=== PATIENT | male | born 1945 | race Caucasian/White ===

== ENCOUNTER → 2016-10-02 | Outpatient (CLI) | payer MEDICARE ==
[2016-10-02 10:45] LABS: ALT 43 U/L (21-72); AST 30 U/L (17-59); Cholesterol 132 mg/dL (<200); HDL Cholesterol 52 mg/dL (40-60); Triglycerides 87 mg/dL (<150)
== END | disposition home or self-care (01) ==
LOC: LABWHC1 10:02
PROVIDERS: ATTEND Internal Medicine Cardiovascular Disease
DX: E78.5 Hyperlipidemia, unspecified (principal)
CPT/HCPCS: 36415; 80061; 84450; 84460

== ENCOUNTER 2017-05-02 07:23 | Day surgery (SDC) | payer MEDICARE ==
[2017-04-30 14:51] VITALS: BMI 23.7
[~2017-05-02 07:23] MED LIST: LACTATED RINGERS 1,000 ML IV SCH
--- NOTE | 2017-05-02 07:51 | P.GSHP ---
History of Present Illness H&P Date: 05/02/17 CHIEF COMPLAINT: Colon screen HISTORY OF PRESENT ILLNESS: The patient is a 71-year-old male who presents for colon screen. Lower endoscopy was offered for further evaluation and management. PAST MEDICAL HISTORY: Please see list. PAST SURGICAL HISTORY: Please see list. MEDICATIONS: Please see list. ALLERGIES: Please see list. SOCIAL HISTORY: No illicit drug use FAMILY HISTORY: No reports of Crohn disease or ulcerative colitis. REVIEW OF ORGAN SYSTEMS: CONSTITUTIONAL: No reports of fevers or chills. PHYSICAL EXAM: VITAL SIGNS: Stable GENERAL: Well-developed pleasant in no acute distress. HEENT: No scleral icterus. Extraocular movements grossly intact. Moist buccal mucosa. NECK: Supple without lymphadenopathy. CHEST: Unlabored respirations. Equal bilateral excursions. CARDIOVASCULAR: Regular rate and rhythm. Distal 2+ pulses. ABDOMEN: Soft, nontender, nondistended. MUSCULOSKELETAL: No clubbing, cyanosis, or edema. ASSESSMENT: 1. Colon screen. PLAN: 1. Recommend proceeding with a lower endoscopy Past Medical History Past Medical History: Hyperlipidemia, Osteoarthritis (OA) Additional Past Medical History / Comment(s): Gliac positive history. History of Any Multi-Drug Resistant Organisms: None Reported Past Surgical History: No Surgical Hx Reported Additional Past Surgical History / Comment(s): COLONOSCOPY Past Anesthesia/Blood Transfusion Reactions: No Reported Reaction Additional Past Anesthesia/Blood Transfusion Reaction / Comment(s): No prior hx of anesthesia. Smoking Status: Former smoker - Past Family History Brother(s) Family Medical History: Cancer Additional Family Medical History / Comment(s): Colon CA. Medications and Allergies Home Medications Medication Instructions Recorded Confirmed Type Aspirin [Adult Low Dose Aspirin EC] 81 mg PO QAM 07/28/16 04/30/17 History Atorvastatin [Lipitor] 40 mg PO HS 07/28/16 04/30/17 History Cholecalciferol [Vitamin D3] 1,000 unit PO DAILY 07/28/16 04/30/17 History Multivitamins, Thera [Multivitamin] 1 tab PO QAM 07/28/16 04/30/17 History [place]-3 Fatty Acids/Fish Oil [Fish 1 each PO BID 07/28/16 04/30/17 History Oil 1,000 mg Softgel] Wheat Germ Oil 1 tab PO TID 04/30/17 History Allergies Allergy/AdvReac Type Severity Reaction Status Date / Time No Known Allergies Allergy Verified 04/30/17 14:56
[2017-05-02 08:06] VITALS: RESP 18; TEMP 97
[2017-05-02] MEDS ORDERED: PROPOFOL 10 MG/ML 20 ML VIAL IV ONE (08:17)
--- NOTE | 2017-05-02 08:37 | P.PCN ---
Date of Procedure: 05/02/17 Description of Procedure: PREOPERATIVE DIAGNOSIS: Family history of colon cancer. Personal history of colon polyps POSTOPERATIVE DIAGNOSIS: Family history of colon cancer. Diverticulosis, sigmoid colon. 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 OPERATION: Colonoscopy to the ileocecal valve and appendiceal orifice. Colonoscopy with snare polypectomY. SURGEON: Ashlee Lynch MD. ANESTHESIA: MAC. INDICATIONS: The patient is a 71-year-old male who presents for follow-up colonoscopy as his last colonoscopy was 1 year ago with multiple polyps. He has a family history of colon cancer. Benefits and risks were described and informed consent was obtained. DESCRIPTION OF PROCEDURE: The patient had undergone Gatorade, MiraLAX and Dulcolax prep. He had been brought into the operating room and laid in the left lateral decubitus position. After adequate intravenous sedation, the rectum was examined with 2% lidocaine jelly. No external hemorrhoids without active inflammation were encountered. The rectal tone was within normal limits. No lesions were palpated in the rectal vault. The prostate was smooth and without nodularity. An Olympus colonoscope was advanced until the ileocecal valve and appendiceal orifice were clearly viewed. The prep was excellent with clear visualization of mucosal folds. Abdominal wall compression was required to advance the scope to view the base of the cecum. No evidence focal colitis was encountered. At the cecum, an 8 millimeter adenoma was snare polypectomy to completion. Scattered sigmoid diverticula without inflammation or bleeding was encountered. Retroflexion of the scope demonstrated grade 2 internal hemorrhoids without active bleeding or inflammation. The colon was desufflated. The patient had tolerated the procedure well. FINDINGS: Tubular adenoma along the cecum, ascending colon snare polypectomy. No residual tumor along the sigmoid colon. Diverticulosis at sigmoid without diverticulitis. Internal hemorrhoids, grade 2. No evidence of focal colitis or arteriovenous malformations. RECOMMENDATIONS: Repeat colonoscopy in 3 years, 2019. Plan - Discharge Summary New Discharge Prescriptions: No Action Atorvastatin [Lipitor] 40 mg PO HS Aspirin [Adult Low Dose Aspirin EC] 81 mg PO QAM Cholecalciferol [Vitamin D3] 1,000 unit PO DAILY [place]-3 Fatty Acids/Fish Oil [Fish Oil 1,000 mg Softgel] 1 each PO BID Multivitamins, Thera [Multivitamin] 1 tab PO QAM Wheat Germ Oil 1 tab PO TID Discharge Medication List Aspirin [Adult Low Dose Aspirin EC] 81 mg PO QAM 12/09/16 [History] Atorvastatin [Lipitor] 40 mg PO HS 07/28/16 [History] Cholecalciferol [Vitamin D3] 1,000 unit PO DAILY 07/28/16 [History] Multivitamins, Thera [Multivitamin] 1 tab PO QAM 07/28/16 [History] [place]-3 Fatty Acids/Fish Oil [Fish Oil 1,000 mg Softgel] 1 each PO BID 07/28/16 [History] Wheat Germ Oil 1 tab PO TID 04/30/17 [History]
[2017-05-02 09:23] VITALS: BP 142/70; PULSE 58
== END 2017-05-02 09:34 | disposition home or self-care (01) ==
LOC: ORWHC2ENDO 07:23
PROVIDERS: ATTEND Surgery Plastic and Reconstructive Surgery
DX: Z12.11 Encounter for screening for malignant neoplasm of colon (principal); D12.0 Benign neoplasm of cecum; K57.30 Diverticulosis of large intestine without perforation or abscess without bleeding; K64.1 Second degree hemorrhoids; M19.90 Unspecified osteoarthritis, unspecified site; Z86.010 Personal history of colon polyps; Z80.0 Family history of malignant neoplasm of digestive organs; Z87.891 Personal history of nicotine dependence; E78.5 Hyperlipidemia, unspecified; Z79.82 Long term (current) use of aspirin; Z79.899 Other long term (current) drug therapy
CPT/HCPCS: 88305; 45385; J2704

== ENCOUNTER → 2017-05-04 | Outpatient (CLI) | payer MEDICARE ==
[2017-05-04 09:47] LABS: ALT 41 U/L (21-72); AST 30 U/L (17-59); Cholesterol 139 mg/dL (<200); HDL Cholesterol 53 mg/dL (40-60)
== END | disposition home or self-care (01) ==
LOC: LABWHC1 09:01
PROVIDERS: ATTEND Internal Medicine Cardiovascular Disease
DX: E78.5 Hyperlipidemia, unspecified (principal)
CPT/HCPCS: 36415; 80061; 84450; 84460

== ENCOUNTER → 2017-09-06 | Outpatient (CLI) | payer MEDICARE ==
--- NOTE | 2017-09-06 11:28 | XR ---
EXAMINATION TYPE: XR femur bilateral DATE OF EXAM: 09/06/2017 COMPARISON: None HISTORY: 72-year-old male with a pain in both femurs from hip to knee TECHNIQUE: 2 views each side FINDINGS: There is moderate to severe degenerative joint space narrowing with marginal spurring at the right hi p and moderate at the left hip. Vascular calcifications on both sides suggests underlying diabetes an d/or chronic kidney disease. No acute fracture, subluxation, or dislocation is seen. IMPRESSION: Moderate to severe right and moderate left hip osteoarthrosis. Otherwise, bilateral femurs without ac [place] osseous abnormality seen.
== END | disposition home or self-care (01) ==
LOC: RADXRMAIN 10:36
PROVIDERS: ATTEND Family Medicine
DX: M16.0 Bilateral primary osteoarthritis of hip (principal)

== ENCOUNTER → 2017-09-10 | Outpatient (CLI) | payer MEDICARE ==
--- NOTE | 2017-09-10 12:34 | MR ---
EXAMINATION TYPE: MR femur/thigh RT wo con DATE OF EXAM: 09/10/2017 COMPARISON: NONE HISTORY: Right thigh pain Standard multiplanar, multisequence MRI departmental protocol Multiplanar, multisequence images of the right thigh were acquired. Diffusion weighted imaging was pe rformed. FINDINGS: 1. Muscular structures are symmetric bilaterally. No intramuscular tear or hematoma. No mass lesions identified. No abnormal fluid collection seen. There is moderate to severe advanced osteoarthritis of the right hip joint space. Subchondral cyst formation noted. No evidence for osseous lesion or bone fracture. No evidence for avascular necrosis. IMPRESSION: 1. Osteoarthritis of the right hip. 2. No soft tissue abnormality appreciated.
== END | disposition home or self-care (01) ==
LOC: RADMRIMAIN 11:06
PROVIDERS: ATTEND Family Medicine
DX: M16.11 Unilateral primary osteoarthritis, right hip (principal)

== ENCOUNTER → 2017-10-23 | Outpatient (CLI) | payer MEDICARE | END | disposition home or self-care (01) | LOC: LABPAT 11:52 | PROVIDERS: ATTEND Orthopaedic Surgery | DX: Z01.812 Encounter for preprocedural laboratory examination (principal) | CPT/HCPCS: 87070 ==

== ENCOUNTER → 2017-11-02 | Outpatient (CLI) | payer MEDICARE | END | disposition home or self-care (01) | LOC: LABWHC1 11:25 | PROVIDERS: ATTEND Orthopaedic Surgery | DX: Z01.812 Encounter for preprocedural laboratory examination (principal) | CPT/HCPCS: 36415; 86850; 86900; 86901 ==

== ENCOUNTER 2017-11-06 05:46 | Inpatient (IN) | payer MEDICARE ==
[2017-10-30 14:56] VITALS: BMI 23.7
[~2017-11-06 05:46] MED LIST changes: +ACETAMINOPHEN TAB 500 MG TAB PO ONE; -LACTATED RINGERS 1,000 ML IV SCH; +LIDOCAINE 1% 20 ML VIAL (10MG/ML) FOR IV START INTRADERMA PRN; +MELOXICAM 7.5 MG TAB PO ONE; +MORPHINE SULFATE 2 MG/ML SYRINGE IV PRN; +ONDANSETRON 4 MG/2 ML VIAL IVP ONE; +TRANEXAMIC ACID 1,000 MG in SODIUM CHLORIDE 0.9% 50 ML IVPB ONE; +ceFAZolin IN SWFI 2 GM/20 ML SYRINGE IVP ONE
[2017-11-06] MEDS ORDERED: ROPIVACAINE 246.25 MG, EPINEPHrine 0.5 MG, KETOROLAC 30 MG, cloNIDine HCL/PF 80 MCG, WA... MISCELLANE ONE ×5 (05:54)
[2017-11-06 06:20] VITALS: RESP 16
[2017-11-06] MEDS: LACTATED RINGERS 1,000 ML IV SCH (06:38)
[2017-11-06] MEDS ORDERED: hydrOXYzine PAMOATE 25 MG CAP PO PRN (07:26)
[2017-11-06] MEDS ORDERED: NALOXONE 0.4 MG/ML 1 ML VIAL IV PRN (07:26)
[2017-11-06] MEDS ORDERED: HYDROcodone/APAP 5-325MG 1 EACH TAB PO PRN ×2 (07:26)
[2017-11-06] MEDS ORDERED: MAGNESIUM HYDROXIDE 2,400 MG/10 ML CUP PO PRN (07:26)
[2017-11-06] MEDS ORDERED: ONDANSETRON 4 MG/2 ML VIAL IVP PRN (07:26)
[2017-11-06] MEDS ORDERED: DIAZEPAM 5 MG TAB PO PRN ×2 (07:26)
[2017-11-06] MEDS ORDERED: MORPHINE SULFATE/PF 10MG/10ML VL IVP PRN ×3 (07:26)
[2017-11-06] MEDS ORDERED: MIDAZOLAM 2 MG/2 ML VIAL ONE ×2 (07:28→07:37)
[2017-11-06] MEDS ORDERED: MIDAZOLAM 2 MG/2 ML VIAL IVP ONE (07:29)
[2017-11-06] MEDS ORDERED: TRANEXAMIC ACID 1,000 MG/10 ML VIAL ONE (07:37)
[2017-11-06] MEDS ORDERED: PROPOFOL 10 MG/ML 20 ML VIAL IV ONE (07:37)
[2017-11-06] MEDS ORDERED: fentaNYL (PF) 50 MCG/ML 2 ML AMP ONE (07:37)
[2017-11-06] MEDS ORDERED: SODIUM CHLORIDE 0.9% 100 ML BAG ONE (07:37)
[2017-11-06] MEDS ORDERED: ePHEDrine SULFATE/0.9% NACL/PF 50 MG/5 ML SYRINGE IV ONE (07:37)
--- NOTE | 2017-11-06 09:23 | P.OP ---
Date of Procedure: 11/06/17 Preoperative Diagnosis: Severe osteoarthritis right hip Postoperative Diagnosis: Severe osteoarthritis right hip Procedure(s) Performed: Right total hip arthroplasty with a direct anterior approach Implants: Leon and nephew Polarstem size 4 standard Leon & Nephew R3, 3 hole acetabular shell, 60 mm Leon [employer] Nephew reflection 6.5 mm cancellus screw, 20 mm and 25 mm Leon & Nephew R3, XLPE 20 acetabular liner Leon & Nephew Oxinium femoral head 36 m, +8 All components were press-fit. The articulation is Oxinium on polyethylene. Anesthesia: spinal Surgeon: Chandu Kimbrough Aircraft Ordnance Technician #1: Lizette Santana Estimated Blood Loss (ml): 200 (61 mL returned with Cell Saver) Pathology: other (Femoral head) Condition: stable Disposition: PACU Indications for Procedure: After failure of conservative treatment we discussed the surgical and nonsurgical treatment options at length. Patient wishes to proceed with a total hip arthroplasty with a direct anterior approach. Complications specific to this procedure were discussed at length, including but not limited to infection, leg length discrepancy, dislocation, and nerve injury. Patient is aware of all these complications and informed consent was obtained Operative Findings: The operative findings are consistent with severe osteoarthritis of the right hip Description of Procedure: Patient was seen and evaluated in the preoperative area, consent was reviewed, and the surgical site was marked with a skin marker. Patient was then brought to the operating room and given prophylactic antibiotics intravenously. 1 g of Tranexamic acid was also given. A spinal anesthetic was administered by the anesthesia department. The patient was then placed on the [place] table with the bony prominences well-padded. The hip area was then prepped and draped in usual sterile fashion. A universal timeout was then performed, which confirmed the patient's name, surgical site, ALLERGIES, and procedure being performed. Next the incision site was located at 1 cm distal and 1 cm lateral to the anterior superior iliac spine. The skin and subcutaneous tissues were sharply incised. Incision was carefully dissected down to the fascia overlying the tensor fascia felix muscle. This fascia was then incised in line with the incision. Next, using blunt finger dissection, the tensor fascia felix muscle was dissected off its investing fascia. The muscle was then carefully retracted laterally with a cobra retractor over the lateral neck of the femur. Next, the circumflex vessels were identified and cauterized using the AquaMantis device. The anterior hip capsule was then exposed. The capsule was then opened and an inverted T fashion. Cobra retractors were then placed intracapsularly. The proximal femur was then visualized. The femoral neck was then osteotomized appropriate level above the lesser trochanter. Small amount of traction was placed with the [place] table. A small wedge of bone was then removed from the remaining femoral head. Next, using a corkscrew femoral head was easily removed from the acetabulum. On gross visual inspection, the femoral head had complete loss of articular cartilage in multiple periarticular osteophytes. Attention was then turned to the acetabulum. the acetabulum was exposed and any remaining labrum was excised. Sequential reaming of the acetabulum was performed using fluoroscopic guidance. When the appropriate size was reached, a trial was then placed. The position and fit of the trial was checked with fluoroscopy. The trial was then removed. Then, using fluoroscopic guidance, the final implant was impacted at 20 of anteversion and 40 of abduction, and fully seated in the acetabulum. 2 screws were then placed in the acetabulum. Again fluoroscopy was used to check position of the screws. Next, the liner was then impacted, with a 20 elevated liner located in the anterior superior quadrant. Component locking was confirmed. Attention was then directed to the femur. With the aid of the [place] table, the femur was externally rotated to approximately 130, extended, and abducted under the opposite leg. A side hook was then placed under the proximal femur, and the side hook elevator was used to elevate the proximal femur. Retractors were then placed. A capsular release was performed, as well as a release of the conjoined tendon, which afforded excellent visualization of the proximal femur. Next, a box osteotome was used to lateralize the proximal femur. A barn hand was then used to locate the femoral canal. Sequential broaching was then performed with appropriate size which afforded excellent fixation in the proximal femur. A trial was then placed with appropriate head and neck, and the hip was gently reduced with the aid of the [place] table. Fluoroscopy was then used to check position of the components, as well as to ensure equal leg lengths. The hip was then gently dislocated and the trials were then removed. Final implants were then impacted and the hip was again reduced. Final fluoroscopic x-rays confirmed that the components were in anatomic position, as well as equal leg lengths. The hip was also taken through range of motion, and found to be stable. The hip was then copiously irrigated with antibiotic solution with pulsatile lavage. The hip was then irrigated with Irrisept solution. The soft tissues were then injected with a ropivacaine solution, which consisted of 246.25 mg of ropivacaine, 0.5 mg of epinephrine, 30 mg of Toradol, 80 g of clonidine, and 48.45 mL of sterile water, for a total of 100 mL of fluid injected. A second dose of 1 g of Tranexamic acid was also given. the fascia was then closed with 2-0 strata fix suture. The subcutaneous tissue was closed with 3-0 Vicryl. The subcuticular tissue was closed with 3-0 strata fix suture. The skin was then closed with Dermabond glue and a sterile silver dressing. The patient was then transferred to the recovery room in stable condition. The pastrycook's assistant DANIEL Mendez was required due to the complexity of surgery, and the need for skilled surgical services coordinator for positioning, draping, exposure, retraction, and closure of the wound.
[2017-11-06] MEDS ORDERED: LACTATED RINGERS 1,000 ML IV ONE (09:25)
--- NOTE | 2017-11-06 09:53 | XR ---
Right hip HISTORY: Status post right hip replacement Single frontal view of the right hip Comparison to prior exam 09/06/2017 There is been interval right hip arthroplasty. There is anatomic alignment in the single view. Lucenc y present in the soft tissues compatible with postop state. Small ossific densities adjacent to the m edial proximal femur are likely postoperative. IMPRESSION: Orthopedic follow-up.
--- NOTE | 2017-11-06 10:39 | FL ---
EXAMINATION TYPE: FL guidance operating room, XR Hip Limited RT DATE OF EXAM: 11/06/2017 CLINICAL HISTORY: Right anterior hip pain and fluoroscopy documentation. TECHNIQUE: Fluoroscopy. COMPARISON: None. FINDINGS/IMPRESSION: Fluoroscopic guidance was provided during procedure performed by Dr. Kimbrough. A total of 44 seconds of fluoroscopic time was utilized during the procedure and 2 spot images was a cquired.
[2017-11-06] MEDS: SODIUM CHLORIDE 0.9% 1,000 ML IV SCH (13:20)
[2017-11-06] MEDS: ceFAZolin IN SWFI 2 GM/20 ML SYRINGE IVP SCH (17:40)
[2017-11-06] MEDS: ACETAMINOPHEN TAB 500 MG TAB PO PRN (17:50)
[2017-11-06] MEDS ORDERED: ATORVASTATIN 40 MG TAB PO SCH (21:00)
[2017-11-06] MEDS ORDERED: NON-FORMULARY DRUG (Omega-3 Fatty Acids/Fish Oil [Fish Oil 1,000 Mg Softgel] 1 CAP) PO SCH (21:00)
[2017-11-06] MEDS ORDERED: SENNOSIDES-DOCUSATE SODIUM 1 EACH TAB PO SCH (21:00)
[2017-11-06] MEDS: ASPIRIN 325 MG TAB PO SCH (21:21)
[2017-11-07] MEDS: ceFAZolin IN SWFI 2 GM/20 ML SYRINGE IVP SCH (00:42)
[2017-11-07] MEDS: SODIUM CHLORIDE 0.9% 1,000 ML IV SCH ×2 (00:43→12:37)
[2017-11-07] MEDS: LACTATED RINGERS 1,000 ML IV SCH (06:44)
[2017-11-07 07:06] VITALS: BP 102/52; PULSE 67; TEMP 97.5
[2017-11-07 07:34] LABS: Basophils % (A) 0 %; Eosinophils % (A) 0 %; HGB 11.8 gm/dL (13.0-17.5); Lymphocytes # (A) 0.6 k/uL (1.0-4.8); Lymphocytes % (A) 8 %; MCH 31.3 pg (25.0-35.0); MCHC 33.7 g/dL (31.0-37.0); Mean Platelet Volume 6.9; Monocytes # (A) 0.6 k/uL (0-1.0); Monocytes % (A) 8 %; Neutrophils % (A) 81 %; Platelet Count 173 k/uL (150-450); RBC 3.77 m/uL (4.30-5.90); RDW 12.6 % (11.5-15.5); WBC 7.4 k/uL (3.8-10.6)
[2017-11-07] MEDS: ACETAMINOPHEN TAB 500 MG TAB PO PRN (07:42)
--- NOTE | 2017-11-07 08:24 | P.DS ---
Providers Date of admission: 11/06/17 05:46 Expected date of discharge: 11/07/17 Attending physician: Chandu Kimbrough Consults: 11/06/17 07:26 Consult Physician Routine Consulting Provider: Yuri Valentine Consult Reason/Comments: medical management Do you want consulting provider notified?: Yes Primary care physician: Yuri Valentine - Discharge Diagnosis(es) (1) Primary osteoarthritis of right hip Current Visit: Yes Status: Acute (2) S/P total hip arthroplasty Current Visit: Yes Status: Acute Hospital Course: This is a 72-year-old male with known history of degenerative arthritis of the right hip. The patient presents for evaluation. After discussion and consideration patient elects to proceed with total hip arthroplasty. The patient is seen preoperatively by Dr. Kimbroguh and medically cleared for surgery by their primary care physician. Patient is admitted to [facility] on 11/06/2017 for total hip arthroplasty. The procedures performed without complication or sequelae. The patient is doing well postoperatively. Labs and vital signs are stable on day of discharge. On day of discharge patient's hip incision is healing well. There is minimal erythema. There is no drainage noted at this time. There is minimal soft tissue swelling to the hip and thigh. Patient has full foot and ankle motion without difficulty or pain. Neurovascular status to the right lower extremity is intact. Patient is discharged home in good condition. Please see med rec for accurate list of home medications. Plan - Discharge Summary Discharge Rx Participant: Yes New Discharge Prescriptions: New Aspirin 325 mg PO BID #60 tab HYDROcodone/APAP 5-325MG [Post 5-325] 1 - 2 tab PO Q4-6H PRN #90 tab PRN Reason: Pain Sennosides [Senokot] 1 tab PO BID #60 tablet No Action Atorvastatin [Lipitor] 40 mg PO HS Aspirin [Adult Low Dose Aspirin EC] 81 mg PO QAM Cholecalciferol [Vitamin D3] 2,000 unit PO DAILY [place]-3 Fatty Acids/Fish Oil [Fish Oil 1,000 mg Softgel] 1 cap PO BID Multivitamins, Thera [Multivitamin] 1 tab PO QAM Ibuprofen [Advil] 200 mg PO DAILY PRN PRN Reason: Pain Discharge Medication List Aspirin [Adult Low Dose Aspirin EC] 81 mg PO QAM 07/28/16 [History] Atorvastatin [Lipitor] 40 mg PO HS 07/28/16 [History] Cholecalciferol [Vitamin D3] 2,000 unit PO DAILY 07/28/16 [History] Multivitamins, Thera [Multivitamin] 1 tab PO QAM 07/28/16 [History] [place]-3 Fatty Acids/Fish Oil [Fish Oil 1,000 mg Softgel] 1 cap PO BID 07/28/16 [ History] Ibuprofen [Advil] 200 mg PO DAILY PRN 10/30/17 [History] Aspirin 325 mg PO BID #60 tab 11/07/17 [Rx] HYDROcodone/APAP 5-325MG [Post 5-325] 1 - 2 tab PO Q4-6H PRN #90 tab 11/07/17 [ Rx] Sennosides [Senokot] 1 tab PO BID #60 tablet 11/07/17 [Rx] Follow up Appointment(s)/Referral(s): Chandu Kimbrough DO [Doctor of Osteopathic Medicine] - 2 Weeks Activity/Diet/Wound Care/Special Instructions: Weightbearing as tolerated with walker. Leave dressing intact. Dressing may be removed by home care nurse in 10-14 days. May shower with dressing on. Follow-up with [facility] in 2 weeks, please call with any questions or concerns [phone] Discharge Disposition: HOME WITH HOME HEALTH SERVICES
[2017-11-07] MEDS: ASPIRIN 325 MG TAB PO SCH (08:57)
[2017-11-07] MEDS: MULTIVITAMINS, THERA 1 EACH TAB PO SCH ×2 (08:57→08:59)
[2017-11-07] MEDS ORDERED: CHOLECALCIFEROL 1,000 UNIT TAB PO SCH (09:00)
[2017-11-07] MEDS ORDERED: MELOXICAM 7.5 MG TAB PO SCH (09:00)
--- NOTE | 2017-11-07 11:09 | P.CONS ---
History of Present Illness - History of Present Illness 80-year-old male post right total hip arthroplasty. Patient states he has pain control complaining of right knee pain. No calf tenderness no shortness of breath or chest pain Review of Systems Musculoskeletal: right: hip pain, knee pain Past Medical History Past Medical History: Hyperlipidemia, Osteoarthritis (OA) Additional Past Medical History / Comment(s): HX OF COLON POLYPS, BRONCHITIS AUGUST 2017., ARTHRITIS HIPS. History of Any Multi-Drug Resistant Organisms: None Reported Past Surgical History: No Surgical Hx Reported Additional Past Surgical History / Comment(s): COLONOSCOPY Past Anesthesia/Blood Transfusion Reactions: No Reported Reaction Additional Past Anesthesia/Blood Transfusion Reaction / Comm: ONLY ANESTHESIA WAS WITH COLONOSCOPY Past Psychological History: No Psychological Hx Reported Smoking Status: Former smoker Past Alcohol Use History: None Reported Additional Past Alcohol Use History / Comment(s): Smoked less than a ppd for 3 years, quit at age 25 y.o. Past Drug Use History: None Reported - Past Family History Brother(s) Family Medical History: Cancer Additional Family Medical History / Comment(s): Colon CA. Medications and Allergies Home Medications Medication Instructions Recorded Confirmed Type Aspirin [Adult Low Dose Aspirin EC] 81 mg PO QAM 07/28/16 11/06/17 History Atorvastatin [Lipitor] 40 mg PO HS 07/28/16 11/06/17 History Cholecalciferol [Vitamin D3] 2,000 unit PO DAILY 07/28/16 11/06/17 History Multivitamins, Thera [Multivitamin] 1 tab PO QAM 07/28/16 11/06/17 History [place]-3 Fatty Acids/Fish Oil [Fish 1 cap PO BID 07/28/16 11/06/17 History Oil 1,000 mg Softgel] Ibuprofen [Advil] 200 mg PO DAILY PRN 10/30/17 11/06/17 History Aspirin 325 mg PO BID #60 tab 11/07/17 Rx HYDROcodone/APAP 5-325MG [[place] 1 - 2 tab PO Q4-6H PRN #90 tab 11/07/17 Rx 5-325] Sennosides [Senokot] 1 tab PO BID #60 tablet 11/07/17 Rx Allergies Allergy/AdvReac Type Severity Reaction Status Date / Time No Known Allergies Allergy Verified 11/06/17 13:15 Physical Exam Vitals: Vital Signs Temp Pulse Pulse Resp BP Pulse Ox 11/07/17 07:00 97.5 F L 67 16 102/52 98 11/07/17 01:33 98.4 F 81 16 132/69 96 11/07/17 00:00 81 16 11/06/17 20:21 98.1 F 73 16 128/66 97 11/06/17 20:00 73 16 11/06/17 14:45 97.6 F 89 16 146/70 99 11/06/17 13:30 97.5 F L 71 16 130/67 100 11/06/17 13:00 66 16 121/67 100 11/06/17 12:00 71 16 146/70 100 11/06/17 11:30 66 16 152/70 100 Intake and Output 11/06/17 11/07/17 11/07/17 22:59 06:59 14:59 Intake Total 805 625 Balance 805 625 Intake: Intake, IV Titration 325 325 Amount Sodium Chloride 0.9% 1, 325 325 000 ml @ 65 mls/hr IV . [id number] [facility] Rx#:[id number] Oral 480 300 Other: Voiding Method Toilet Toilet Toilet # Voids 2 1 Weight 79.379 kg - Constitutional General appearance: mild distress - EENT Eyes: PERRLA Ears: bilateral: normal - Neck Neck: normal ROM - Respiratory Respiratory: bilateral: CTA - Cardiovascular Rhythm: regular - Gastrointestinal General gastrointestinal: soft - Neurologic Neurologic: CNII-XII intact - Psychiatric Psychiatric: A&O x's 3, appropriate affect, intact judgment & insight Results CBC & Chem 7: 11/07/17 06:52 Labs: Abnormal Lab Results - Last 24 Hours (Table) 11/07/17 Range/Units 06:52 RBC 3.77 L (4.30-5.90) m/uL Hgb 11.8 L (13.0-17.5) gm/dL Hct 35.0 L (39.0-53.0) % Lymphocytes # 0.6 L (1.0-4.8) k/uL Assessment and Plan Plan: Assessment Postop right total hip arthroplasty History of osteoarthritis Hyperlipidemia Plan Patient medically cleared for discharge
== END 2017-11-07 14:10 | disposition home health service (06) | DRG 470 ==
LOC: 2ORMAIN 05:46 → 3SUR 13:11
PROVIDERS: ADMIT Orthopaedic Surgery; ATTEND Orthopaedic Surgery
PROC: 30233N0 Transfusion of Autologous Red Blood Cells into Peripheral Vein, Percutaneous Approach (ICD-10-PCS; 2017-11-06)
PROC: 0SR906A Replacement of Right Hip Joint with Oxidized Zirconium on Polyethylene Synthetic Substitute, Uncemented, Open Approach (ICD-10-PCS; principal; 2017-11-06 07:30)
DX: M16.0 Bilateral primary osteoarthritis of hip (principal); E78.5 Hyperlipidemia, unspecified; M25.561 Pain in right knee; Z79.82 Long term (current) use of aspirin; Z79.899 Other long term (current) drug therapy; Z87.891 Personal history of nicotine dependence; Z86.010 Personal history of colon polyps
CPT/HCPCS: 36415; 73501; 85025; 86850; 86900; 86901; 88300

== ENCOUNTER → 2018-05-21 | Outpatient (CLI) | payer MEDICARE ==
[2018-05-21 11:24] LABS: Albumin 3.8 g/dL (3.5-5.0); Bilirubin, Delta 0.2 mg/dL (0.0-0.2); Bilirubin,Unconjugated 0.6 mg/dL (0.0-1.1); Total Bilirubin 0.8 mg/dL (0.2-1.3); Total Protein 6.4 g/dL (6.3-8.2)
== END | disposition home or self-care (01) ==
LOC: LABWHC1 09:28
PROVIDERS: ATTEND Internal Medicine Cardiovascular Disease
DX: E78.5 Hyperlipidemia, unspecified (principal)
CPT/HCPCS: 36415; 80061; 80076

== ENCOUNTER → 2018-08-26 | Outpatient (CLI) | payer MEDICARE ==
[2018-08-26 14:06] LABS: HCT 38.4 % (39.0-53.0); HGB 12.9 gm/dL (13.0-17.5); MCH 31.3 pg (25.0-35.0); MCHC 33.6 g/dL (31.0-37.0); MCV 93.2 fL (80.0-100.0); Mean Platelet Volume 6.8; Platelet Count 224 k/uL (150-450); RBC 4.12 m/uL (4.30-5.90); RDW 13.5 % (11.5-15.5); WBC 5.9 k/uL (3.8-10.6)
[2018-08-26 14:11] LABS: INR 0.9 (<1.2); Partial Thromboplastin Time 22.6 sec (22.0-30.0)
[2018-08-26 14:19] LABS: Potassium 4.9 mmol/L (3.5-5.1)
== END | disposition home or self-care (01) ==
LOC: LABPAT 13:10
PROVIDERS: ATTEND Orthopaedic Surgery
DX: Z01.812 Encounter for preprocedural laboratory examination (principal)
CPT/HCPCS: 36415; 80051; 82565; 84520; 85027; 85610; 85730; 87070

== ENCOUNTER 2018-09-16 05:42 | Inpatient (IN) | payer MEDICARE ==
[2018-09-12 15:10] VITALS: BMI 24.0
[~2018-09-16 05:42] MED LIST changes: +DEXAMETHASONE SOD PHOSPHATE 10 MG/ML 1 ML VIAL IV ONE; +MIDAZOLAM 2 MG/2 ML VIAL IV PRN; -MORPHINE SULFATE 2 MG/ML SYRINGE IV PRN; +fentaNYL (PF) 50 MCG/ML 2 ML AMP IV PRN
[2018-09-16] MEDS ORDERED: ROPIVACAINE 246.25 MG, EPINEPHrine 0.5 MG, KETOROLAC 30 MG, cloNIDine HCL/PF 80 MCG, WA... MISCELLANE ONE ×5 (06:05)
[2018-09-16] MEDS: LACTATED RINGERS 1,000 ML IV SCH (06:30)
[2018-09-16] MEDS ORDERED: ePHEDrine SULFATE/0.9% NACL/PF 50 MG/5 ML SYRINGE IV ONE (06:57)
[2018-09-16] MEDS ORDERED: TRANEXAMIC ACID 1,000 MG/10 ML VIAL ONE (06:57)
[2018-09-16] MEDS ORDERED: SODIUM CHLORIDE 0.9% IRRIG 1,000 ML BTL IRRIGATION ONE (06:57)
[2018-09-16] MEDS ORDERED: SODIUM CHLORIDE 0.9% 100 ML BAG ONE (06:57)
[2018-09-16] MEDS ORDERED: MIDAZOLAM 2 MG/2 ML VIAL ONE (06:57)
[2018-09-16] MEDS ORDERED: HEPARIN SODIUM,PORCINE 10,000 UNIT/ML 1 ML VIAL ONE (06:57)
[2018-09-16] MEDS ORDERED: DIAZEPAM 5 MG TAB PO PRN (07:01)
[2018-09-16] MEDS ORDERED: NALOXONE 0.4 MG/ML 1 ML VIAL IV PRN (07:01)
[2018-09-16] MEDS ORDERED: MAGNESIUM HYDROXIDE 2,400 MG/10 ML CUP PO PRN (07:01)
[2018-09-16] MEDS ORDERED: ceFAZolin 3,000 MG in SODIUM CHLORIDE 0.9% IRRIGATIO 3,000 ML IRRIGATION ONE (07:01)
[2018-09-16] MEDS ORDERED: hydrOXYzine PAMOATE 25 MG CAP PO PRN (07:01)
[2018-09-16] MEDS ORDERED: HYDROcodone/APAP 5-325MG 1 EACH TAB PO PRN ×2 (07:01)
[2018-09-16] MEDS ORDERED: ONDANSETRON 4 MG/2 ML VIAL IVP PRN (07:01)
[2018-09-16] MEDS ORDERED: HYDROmorphone 0.5 MG/0.5 ML SYRINGE IVP PRN ×3 (07:01)
--- NOTE | 2018-09-16 08:39 | P.OP ---
Date of Procedure: 09/16/18 Preoperative Diagnosis: Severe osteoarthritis left hip Postoperative Diagnosis: Severe osteoarthritis left hip Procedure(s) Performed: Left total hip arthroplasty with a direct anterior approach Implants: Leon and nephew Polarstem size 4 standard Leon & Nephew R3, 3 hole acetabular shell, 58 mm Leon [employer] Nephew reflection 6.5 mm cancellus screw, 20 mm, 25 mm Leon [employer] Nephew R3, XLPE 20 acetabular liner Leon & Nephew Oxinium femoral head 36 m, +4 All components were press-fit. The articulation is Oxinium on polyethylene. Anesthesia: spinal Surgeon: Chandu Kimbrough [place] Bus Driver #1: Lizette Santana Estimated Blood Loss (ml): 150 Pathology: other (Femoral head) Condition: stable Disposition: PACU Indications for Procedure: After failure of conservative treatment we discussed the surgical and nonsurgical treatment options at length. Patient wishes to proceed with a total hip arthroplasty with a direct anterior approach. Complications specific to this procedure were discussed at length, including but not limited to infection, leg length discrepancy, dislocation, and nerve injury. Patient is aware of all these complications and informed consent was obtained Operative Findings: The operative findings are consistent with severe osteoarthritis of the left hip Description of Procedure: Patient was seen and evaluated in the preoperative area, consent was reviewed, and the surgical site was marked with a skin marker. Patient was then brought to the operating room and given prophylactic antibiotics intravenously. 1 g of Tranexamic acid was also given. A spinal anesthetic was administered by the anesthesia department. The patient was then placed on the [place] table with the bony prominences well-padded. The hip area was then prepped and draped in usual sterile fashion. A universal timeout was then performed, which confirmed the patient's name, surgical site, ALLERGIES, and procedure being performed. Next the incision site was located at 1 cm distal and 1 cm lateral to the anterior superior iliac spine. The skin and subcutaneous tissues were sharply incised. Incision was carefully dissected down to the fascia overlying the tensor fascia felix muscle. This fascia was then incised in line with the incision. Next, using blunt finger dissection, the tensor fascia felix muscle was dissected off its investing fascia. The muscle was then carefully retracted laterally with a cobra retractor over the lateral neck of the femur. Next, the circumflex vessels were identified and cauterized using the AquaMantis device. The anterior hip capsule was then exposed. The capsule was then opened and an inverted T fashion. Cobra retractors were then placed intracapsularly. The proximal femur was then visualized. The femoral neck was then osteotomized appropriate level above the lesser trochanter. Small amount of traction was placed with the [place] table. A small wedge of bone was then removed from the remaining femoral head. Next, using a corkscrew femoral head was easily removed from the acetabulum. On gross visual inspection, the femoral head had complete loss of articular cartilage in multiple periarticular osteophytes. Attention was then turned to the acetabulum. the acetabulum was exposed and any remaining labrum was excised. Sequential reaming of the acetabulum was performed using fluoroscopic guidance. When the appropriate size was reached, a trial was then placed. The position and fit of the trial was checked with fluoroscopy. The trial was then removed. Then, using fluoroscopic guidance, the final implant was impacted at 20 of anteversion and 40 of abduction, and fully seated in the acetabulum. 2 screws were then placed in the acetabulum. Again fluoroscopy was used to check position of the screws. Next, the liner was then impacted, with a 20 elevated liner located in the anterior superior quadrant. Component locking was confirmed. Attention was then directed to the femur. With the aid of the [place] table, the femur was externally rotated to approximately 130, extended, and abducted under the opposite leg. A side hook was then placed under the proximal femur, and the side hook elevator was used to elevate the proximal femur. Retractors were then placed. A capsular release was performed, as well as a release of the conjoined tendon, which afforded excellent visualization of the proximal femur. Next, a box osteotome was used to lateralize the proximal femur. A hand folder was then used to locate the femoral canal. Sequential broaching was then performed with appropriate size which afforded excellent fixation in the proximal femur. A trial was then placed with appropriate head and neck, and the hip was gently reduced with the aid of the [place] table. Fluoroscopy was then used to check position of the components, as well as to ensure equal leg lengths. The hip was then gently dislocated and the trials were then removed. Final implants were then impacted and the hip was again reduced. Final fluoroscopic x-rays confirmed that the components were in anatomic position, as well as equal leg lengths. The hip was also taken through range of motion, and found to be stable. The hip was then copiously irrigated with antibiotic solution with pulsatile lavage. The hip was then irrigated with Irrisept solution. The soft tissues were then injected with a ropivacaine solution, which consisted of 246.25 mg of ropivacaine, 0.5 mg of epinephrine, 30 mg of Toradol, 80 g of clonidine, and 48.45 mL of sterile water, for a total of 100 mL of fluid injected. A second dose of 1 g of Tranexamic acid was also given. the fascia was then closed with 2-0 strata fix suture. The subcutaneous tissue was closed with 3-0 Vicryl. The subcuticular tissue was closed with 3-0 strata fix suture. The skin was then closed with Dermabond glue and a sterile silver dressing. The patient was then transferred to the recovery room in stable condition. The first assistant manager DANIEL Mendez was required due to the complexity of surgery, and the need for skilled surgical dental assistant for positioning, draping, exposure, retraction, and closure of the wound.
--- NOTE | 2018-09-16 09:23 | XR ---
Fluoroscopy History: LT ANTERIOR HIP LT ANTERIOR HIP, 48 SECS FL. 2 IMAGES SAVED.
--- NOTE | 2018-09-16 12:41 | P.CONS ---
History of Present Illness - History of Present Illness 73-year-old patient is post left total hip arthroplasty. Patient is comfortable didn't denies any pain at this point. Medical history includes hyperlipidemia otherwise healthy Review of Systems All systems: negative Past Medical History Past Medical History: Cancer, Hyperlipidemia, Osteoarthritis (OA) Additional Past Medical History / Comment(s): skin cancer History of Any Multi-Drug Resistant Organisms: None Reported Past Surgical History: Joint Replacement Additional Past Surgical History / Comment(s): COLONOSCOPY, right hip replaced Past Anesthesia/Blood Transfusion Reactions: No Reported Reaction Additional Past Anesthesia/Blood Transfusion Reaction / Comm: No prior hx of anesthesia. Smoking Status: Former smoker - Past Family History Brother(s) Family Medical History: Cancer Additional Family Medical History / Comment(s): Colon CA. Medications and Allergies Home Medications Medication Instructions Recorded Confirmed Type Atorvastatin [Lipitor] 40 mg PO HS 07/28/16 09/16/18 History Cholecalciferol [Vitamin D3] 2,000 unit PO DAILY 07/28/16 09/16/18 History Multivitamins, Thera [Multivitamin] 1 tab PO QAM 07/28/16 09/16/18 History Aspirin 81 mg PO DAILY 09/12/18 09/16/18 History Fish Oil/Dha/Epa [Fish Oil 1,200 1 each PO DAILY 09/12/18 09/16/18 History mg Fish Oil] Allergies Allergy/AdvReac Type Severity Reaction Status Date / Time No Known Allergies Allergy Verified 09/16/18 10:49 Physical Exam Vitals: Vital Signs Temp Pulse Pulse Resp BP Pulse Ox 09/16/18 11:45 87 127/72 09/16/18 11:30 74 136/73 09/16/18 11:15 72 146/67 09/16/18 11:00 77 139/65 09/16/18 10:45 74 147/68 09/16/18 10:30 73 137/70 09/16/18 10:15 84 141/69 09/16/18 10:00 82 138/52 09/16/18 09:45 97.9 F 75 16 135/64 100 09/16/18 09:32 71 18 134/62 97 09/16/18 09:15 77 18 135/62 98 09/16/18 09:00 72 18 133/61 95 09/16/18 08:46 97.7 F 74 18 141/64 98 09/16/18 06:30 98 F 71 18 176/77 99 Intake and Output 09/15/18 09/16/18 09/16/18 22:59 06:59 14:59 Intake Total 100 851 Output Total 150 Balance 100 701 Intake: IV 100 851 Output: Estimated Blood Loss 150 - Constitutional General appearance: mild distress - EENT Eyes: PERRLA Ears: bilateral: normal - Neck Neck: normal ROM - Respiratory Respiratory: negative: CTA - Cardiovascular Rhythm: regular - Gastrointestinal General gastrointestinal: soft - Integumentary Integumentary: normal - Neurologic Neurologic: CNII-XII intact - Psychiatric Psychiatric: A&O x's 3, appropriate affect, intact judgment & insight Assessment and Plan Plan: Assessment Severe left hip osteoarthritis post left total hip arthroplasty History of hyperlipidemia Plan We'll continue monitor patient condition stable at this time
[2018-09-16] MEDS: SODIUM CHLORIDE 0.9% 1,000 ML IV SCH (15:40)
[2018-09-16] MEDS: ASPIRIN 325 MG TAB PO SCH ×2 (15:40→20:47)
[2018-09-16] MEDS: ceFAZolin IN SWFI 2 GM/20 ML SYRINGE IVP SCH ×2 (15:48→21:55)
[2018-09-16] MEDS ORDERED: ATORVASTATIN 40 MG TAB PO SCH (21:00)
[2018-09-16] MEDS ORDERED: SENNOSIDES-DOCUSATE SODIUM 1 EACH TAB PO SCH (21:00)
[2018-09-17] MEDS: SODIUM CHLORIDE 0.9% 1,000 ML IV SCH (00:32)
[2018-09-17 01:02] VITALS: RESP 16
[2018-09-17] MEDS: LACTATED RINGERS 1,000 ML IV SCH (05:31)
[2018-09-17 07:29] LABS: Basophils % (A) 0 %; Eosinophils % (A) 0 %; HCT 32.4 % (39.0-53.0); HGB 10.6 gm/dL (13.0-17.5); Lymphocytes # (A) 0.4 k/uL (1.0-4.8); Lymphocytes % (A) 4 %; MCH 30.4 pg (25.0-35.0); MCHC 32.7 g/dL (31.0-37.0); MCV 92.8 fL (80.0-100.0); Mean Platelet Volume 6.9; Monocytes # (A) 0.6 k/uL (0-1.0); Monocytes % (A) 6 %; Neutrophils # (A) 9.5 k/uL (1.3-7.7); Neutrophils % (A) 86 %; Platelet Count 157 k/uL (150-450); RBC 3.49 m/uL (4.30-5.90); RDW 14.2 % (11.5-15.5)
[2018-09-17] MEDS ORDERED: NON-FORMULARY DRUG (Fish Oil/Dha/Epa [Fish Oil 1,200 Mg Fish Oil] 1 EACH) PO SCH (09:00)
[2018-09-17] MEDS ORDERED: MELOXICAM 7.5 MG TAB PO SCH (09:00)
[2018-09-17] MEDS ORDERED: MULTIVITAMINS, THERA 1 EACH TAB PO SCH (09:00)
[2018-09-17 09:07] VITALS: BP 128/58; PULSE 76; TEMP 98
[2018-09-17] MEDS: ASPIRIN 325 MG TAB PO SCH (09:07)
--- NOTE | 2018-09-17 09:35 | P.DS ---
Providers Date of admission: 09/16/18 05:42 Expected date of discharge: 09/17/18 Attending physician: Chandu Kimbrough Consults: 09/16/18 07:01 Consult Physician Routine Consulting Provider: Yuri Valentine Consult Reason/Comments: medical management Do you want consulting provider notified?: Yes Primary care physician: Yuri Valentine - Discharge Diagnosis(es) (1) Osteoarthritis of left hip Current Visit: Yes Status: Acute (2) S/P total hip arthroplasty Current Visit: No Status: Acute Hospital Course: This is a 73-year-old male with known history of degenerative arthritis of the left hip. The patient presents for evaluation. After discussion and consideration patient elects to proceed with total hip arthroplasty. The patient is seen preoperatively by Dr. Kimbrough and medically cleared for surgery by their primary care physician. Patient is admitted to [facility] on 09/16/2018 for total hip arthroplasty. The procedures performed without complication or sequelae. The patient is doing well postoperatively. Labs and vital signs are stable on day of discharge. On day of discharge patient's hip incision is healing well. There is minimal erythema. There is no drainage noted at this time. There is minimal soft tissue swelling to the hip and thigh. Patient has full foot and ankle motion without difficulty or pain. Neurovascular status to the left lower extremity is intact. Patient is discharged home in good condition. Please see med rec for accurate list of home medications. Plan - Discharge Summary Discharge Rx Participant: No New Discharge Prescriptions: New Aspirin 325 mg PO BID #60 tab No Action Atorvastatin [Lipitor] 40 mg PO HS Cholecalciferol [Vitamin D3] 2,000 unit PO DAILY Multivitamins, Thera [Multivitamin] 1 tab PO QAM Aspirin 81 mg PO DAILY Fish Oil/Dha/Epa [Fish Oil 1,200 mg Fish Oil] 1 each PO DAILY Discharge Medication List Atorvastatin [Lipitor] 40 mg PO HS 07/28/16 [History] Cholecalciferol [Vitamin D3] 2,000 unit PO DAILY 07/28/16 [History] Multivitamins, Thera [Multivitamin] 1 tab PO QAM 07/28/16 [History] Aspirin 81 mg PO DAILY 09/12/18 [History] Fish Oil/Dha/Epa [Fish Oil 1,200 mg Fish Oil] 1 each PO DAILY 09/12/18 [History] Aspirin 325 mg PO BID #60 tab 09/17/18 [Rx] Follow up Appointment(s)/Referral(s): Chandu Kimbrough DO [Doctor of Osteopathic Medicine] - 2 Weeks Activity/Diet/Wound Care/Special Instructions: Weightbearing as tolerated with walker. Leave dressing intact. Dressing may be removed by home care nurse in 10 days. May shower with dressing on. Patient declined a prescription for pain medication. Please follow-up with [facility] in 2 weeks and call with any questions or concerns, . Discharge Disposition: HOME WITH HOME HEALTH SERVICES
--- NOTE | 2018-09-17 11:45 | P.PN ---
Progress Note - Text Patient addressed and sitting at side of bed. Medically cleared for discharge home
--- NOTE | 2018-09-17 11:53 | FL ---
EXAMINATION TYPE: FL guidance operating room DATE OF EXAM: 09/16/2018 CLINICAL HISTORY: Left hip replacement. TECHNIQUE: Fluoroscopy. COMPARISON: None. FINDINGS: Fluoroscopic guidance was provided during hip replacement procedure performed by Dr. Ivone alicea. A total of 48 seconds of fluoroscopic time was utilized during the procedure and 2 spot images are acquired. IMPRESSION: As Above.
[2018-09-17] MEDS ORDERED: CHOLECALCIFEROL 1,000 UNIT TAB PO SCH (12:00)
== END 2018-09-17 12:05 | disposition home health service (06) | DRG 470 ==
LOC: 2ORMAIN 05:42 → 4SSUR 08:59
PROVIDERS: ADMIT Orthopaedic Surgery; ATTEND Orthopaedic Surgery
PROC: 0SRB06A Replacement of Left Hip Joint with Oxidized Zirconium on Polyethylene Synthetic Substitute, Uncemented, Open Approach (ICD-10-PCS; principal; 2018-09-16 07:00)
DX: M16.12 Unilateral primary osteoarthritis, left hip (principal); E78.5 Hyperlipidemia, unspecified; Z79.82 Long term (current) use of aspirin; Z79.899 Other long term (current) drug therapy; Z87.891 Personal history of nicotine dependence; Z85.828 Personal history of other malignant neoplasm of skin; Z83.3 Family history of diabetes mellitus; Z80.0 Family history of malignant neoplasm of digestive organs; Z82.49 Family history of ischemic heart disease and other diseases of the circulatory system
CPT/HCPCS: 73501; 85025; 86850; 86891; 86900; 86901; 88300

== ENCOUNTER → 2019-02-27 | Outpatient (CLI) | payer MEDICARE ==
[2019-02-27 16:44] LABS: Albumin 4.3 g/dL (3.80-4.90); Albumin/Globulin Ratio 2.39 (1.60-3.17); Bilirubin, Conjugated 0.3 mg/dL (0.20-0.40); Bilirubin,Unconjugated 0.4 mg/dL; Globulin 1.8 g/dL (1.6-3.3); LDL Cholesterol,Calculated 80.4 mg/dL (0.0-131.0); Total Bilirubin 0.7 mg/dL (0.2-1.2); Total Protein 6.1 g/dL (6.2-8.2); VLDL Calculation 16.6 mg/dL (5.00-40.00)
== END | disposition home or self-care (01) ==
LOC: LABWHC1 09:20
PROVIDERS: ATTEND Family Medicine
DX: E78.5 Hyperlipidemia, unspecified (principal)
CPT/HCPCS: 36415; 80061; 80076

== ENCOUNTER → 2019-04-07 | Outpatient (CLI) | payer MEDICARE ==
--- NOTE | 2019-04-07 19:30 | US ---
EXAMINATION TYPE: US groin LT DATE OF EXAM: 04/07/2019 COMPARISON: NONE CLINICAL HISTORY: 73-year-old male R59.0 ENLARGED LYMPH NODES. Left groin palpable lump x couple isaias hs TECHNIQUE: Multiple sonographic images of the bilateral inguinal regions were obtained. FINDINGS: Left groin at palpable: multiple enlarged lymph nodes with largest measuring 3.6 x 2.4 x 3.3cm Right groin for comparison: multiple enlarged lymph nodes with largest measuring 8.0 x 1.1 x 2.5cm IMPRESSION: Bilateral inguinal lymphadenopathy. Some differential considerations include metastatic disease, lymp brenna/leukemia, systemic fungal/mycobacterial infectious etiology, connective tissue disorder, granulo matous disease, etc. Further clinical correlation recommended.
== END | disposition home or self-care (01) ==
LOC: RADUSWWP 15:18
PROVIDERS: ATTEND Family Medicine
DX: R59.0 Localized enlarged lymph nodes (principal)

== ENCOUNTER → 2019-04-11 | Outpatient (CLI) | payer MEDICARE ==
[2019-04-11 10:31] LABS: HCT 38.9 % (39.0-53.0); HGB 12.6 gm/dL (13.0-17.5); MCH 29.3 pg (25.0-35.0); MCHC 32.3 g/dL (31.0-37.0); MCV 90.8 fL (80.0-100.0); Platelet Count 172 k/uL (150-450); RBC 4.28 m/uL (4.30-5.90); RDW 15.5 % (11.5-15.5); WBC 4.6 k/uL (3.8-10.6)
[2019-04-11 10:40] LABS: Albumin 4.2 g/dL (3.5-5.0); Calcium 9.4 mg/dL (8.4-10.2); Potassium 4.7 mmol/L (3.5-5.1); Total Bilirubin 0.7 mg/dL (0.2-1.3); Total Protein 6.8 g/dL (6.3-8.2)
[2019-04-11 10:57] LABS: Band Neutrophils % 1 %; Lymphocytes # (M) 0.69 k/uL (1.0-4.8); Monocytes # (M) 0.28 k/uL (0-1.0); Neutrophils % (M) 78 %; Nucleated Red Blood Cells 0 /100 WBC (0-0); Total Cells Counted 100
[2019-04-11 10:58] LABS: Anisocytosis (M) Present
--- NOTE | 2019-04-11 12:24 | CT ---
EXAMINATION TYPE: CT abdomen pelvis w con DATE OF EXAM: 04/11/2019 COMPARISON: None HISTORY: Localized enlarged lymph nodes CT DLP: 658.90 mGycm CONTRAST: CT scan of the abdomen and pelvis is performed with Oral Contrast and with IV Contrast, patient injec alise with 100 ml mL of Isovue 300. FINDINGS: LUNG BASES-: No visible nodule. No infiltrate. LIVER/GB: Small gallstones identified. No space occupying hepatic lesion. Biliary tree is of lizeth l caliber. PANCREAS: No inflammation. No distinct mass. SPLEEN: Spleen measures 14 cm craniocaudal dimension. No lesion seen. ADRENALS: No nodule. No thickening. KIDNEYS/BLADDER: No hydronephrosis. No nephrolithiasis. No distinct renal mass. Urinary bladder g rossly unremarkable. BOWEL: Normal appendix. Normal bowel caliber. No inflammation. GENITAL ORGANS: No gross abnormality. LYMPH NODES: Bilateral enlarged bilateral inguinal adenopathy measuring up to 1.4 cm short axis right inguinal region and up to left 2.1 cm. Enlarged lymph node upper left thigh anteriorly measuring 2.5 cm. Left-sided internal iliac chain adenopathy 1 cm on the left and subcentimeter. Left para-aortic subcentimeter aortoenteric caval lymph nodes. Adenopathy measuring 1.2 cm AORTA: No significant abnormality. OSSEOUS STRUCTURES: Bilateral hip prosthesis with extensive streak artifact limiting evaluation of st ructures. OTHER: No significant additional abnormality is seen. IMPRESSION: 1. Splenomegaly with adenopathy within the inguinal and retroperitoneal regions. 2. Cholelithiasis.
== END | disposition home or self-care (01) ==
LOC: RADCTMAIN 09:45
PROVIDERS: ATTEND Physician Assistant
DX: K80.20 Calculus of gallbladder without cholecystitis without obstruction (principal); R16.1 Splenomegaly, not elsewhere classified; R59.0 Localized enlarged lymph nodes
CPT/HCPCS: 80053; 85025; 74177; 36415; Q9967

== ENCOUNTER 2019-07-24 12:42 | Day surgery (SDC) | payer MEDICARE ==
[2019-07-22 14:15] VITALS: BMI 23.7
--- NOTE | 2019-07-24 09:30 | P.GSHP ---
History of Present Illness H&P Date: 07/24/19 CHIEF COMPLAINT: Cholecystitis HISTORY OF PRESENT ILLNESS: The patient is a 74-year-old male who presents with history of epigastric including right upper quadrant abdominal pain. He underwent diagnostic studies for her gallbladder. Separately his clinical picture was consistent with cholecystitis. Now he presents for surgical intervention. He also has new inguinal adenopathy left greater than right of the groin ongoing for more than 6 months with splenomegaly where excisional biopsy is requested as well. PAST MEDICAL HISTORY: Please see list PAST SURGICAL HISTORY: Please see list MEDICATIONS: Please see list ALLERGIES: Denies. SOCIAL HISTORY: No illicit drug use or recent tobacco use FAMILY HISTORY: Pertinent for gallbladder disease REVIEW OF ORGAN SYSTEMS: CONSTITUTIONAL: No reports of fevers or chills. HEENT: Denies any troubles with the hearing. Wears glasses. ENDOCRINE: No reports of hypothyroidism. No diabetes. RESPIRATORY: No recent pneumonias. CARDIOVASCULAR: Denies chest pain or palpitations GI: Has constipation. MUSCULOSKELETAL: Has occasional joint pain including back pain. NEURO: No seizure disorders or headaches. No recent stroke. PSYCH: No depression or suicidal ideation. GENITOURINARY: No active blood in urine. No urinary hesitancy. HEMATOLOGIC: No personal or family history of DVTs or pulmonary emboli. SKIN: No skin cancer. PHYSICAL EXAM: VITAL SIGNS: Afebrile vital signs stable GENERAL: Well-developed pleasant in no acute distress. HEENT: No scleral icterus. Extraocular movements grossly intact. Moist buccal mucosa. NECK: Supple without lymphadenopathy. CHEST: Unlabored respirations. Equal bilateral excursions. CARDIOVASCULAR: Regular rate regular rhythm rhythm. Distal 2+ pulses. ABDOMEN: Soft, nondistended. Palpable lymph nodes along bilateral groin over 2 cm left greater than right. MUSCULOSKELETAL: No clubbing, cyanosis, or edema. NEURO: Cranial nerves II to XII within normal limits. No focal or lateralizing signs. PSYCH: Alert and oriented to person, place and time. SKIN: Well-perfused good skin turgor. ASSESSMENT: 1. Symptomatic gallstones. 2. Inguinal adenopathy, left greater than right. PLAN: 1. Will need a robotic cholecystectomy possible open. Benefits and risks were described. 2. Heparin for DVT prophylaxis 5000 units. 3. Antibiotic prophylaxis. 4. Excisional biopsy of the bilateral groin advised. Past Medical History Past Medical History: Hyperlipidemia, Osteoarthritis (OA) Additional Past Medical History / Comment(s): hx colon polyps. positive guaiac stool History of Any Multi-Drug Resistant Organisms: None Reported Past Surgical History: Joint Replacement Additional Past Surgical History / Comment(s): COLONOSCOPY. laci hip replacement Past Anesthesia/Blood Transfusion Reactions: No Reported Reaction Additional Past Anesthesia/Blood Transfusion Reaction / Comment(s): No prior hx of anesthesia. Smoking Status: Former smoker - Past Family History Brother(s) Family Medical History: Cancer Additional Family Medical History / Comment(s): Colon CA. Medications and Allergies Home Medications Medication Instructions Recorded Confirmed Type Atorvastatin [Lipitor] 40 mg PO HS 07/28/16 07/22/19 History Cholecalciferol [Vitamin D3] 2,000 unit PO DAILY 07/28/16 07/22/19 History Multivitamins, Thera [Multivitamin] 1 tab PO QAM 07/28/16 07/22/19 History Aspirin 81 mg PO DAILY 09/12/18 07/22/19 History Fish Oil/Dha/Epa [Fish Oil 1,200 1 each PO DAILY 09/12/18 07/22/19 History mg Fish Oil] Allergies Allergy/AdvReac Type Severity Reaction Status Date / Time No Known Allergies Allergy Verified 07/22/19 14:02
[~2019-07-24 12:42] MED LIST changes: -ACETAMINOPHEN TAB 500 MG TAB PO ONE; +HEPARIN SODIUM,PORCINE 5,000 UNIT/ML 1 ML VIAL SQ ONE; +HYDROmorphone 0.5 MG/0.5 ML SYRINGE IVP PRN; +INDOCYANINE GREEN 25 MG VIAL IV STA; +LACTATED RINGERS 1,000 ML IV SCH; -LIDOCAINE 1% 20 ML VIAL (10MG/ML) FOR IV START INTRADERMA PRN; -MELOXICAM 7.5 MG TAB PO ONE; -MIDAZOLAM 2 MG/2 ML VIAL IV PRN; +ONDANSETRON 4 MG/2 ML VIAL IVP PRN; -TRANEXAMIC ACID 1,000 MG in SODIUM CHLORIDE 0.9% 50 ML IVPB ONE; -ceFAZolin IN SWFI 2 GM/20 ML SYRINGE IVP ONE; -fentaNYL (PF) 50 MCG/ML 2 ML AMP IV PRN
[2019-07-24] MEDS ORDERED: LIDOCAINE 1% 20 ML VIAL (10MG/ML) FOR IV START INTRADERMA ONE (14:03)
[2019-07-24] MEDS ORDERED: MIDAZOLAM 2 MG/2 ML VIAL IV ONE (14:04)
[2019-07-24 14:12] LABS: HCT 39.3 % (39.0-53.0); HGB 13.1 gm/dL (13.0-17.5); MCH 30.5 pg (25.0-35.0); MCHC 33.3 g/dL (31.0-37.0); MCV 91.5 fL (80.0-100.0); Mean Platelet Volume 7.2; Platelet Count 199 k/uL (150-450); RBC 4.29 m/uL (4.30-5.90); RDW 14.9 % (11.5-15.5); WBC 4.5 k/uL (3.8-10.6)
--- NOTE | 2019-07-24 14:33 | P.ANPRN ---
Procedure Note - Anesthesia - Nerve Block Performed Bilateral Transversus Abdominis Single Time Out Performed: Yes Date of Procedure: 07/24/19 Procedure Start Time: 14:05 Procedure Stop Time: 14:09 Location of Patient: PreOp Indication: Acute Post-Operative Pain, Analgesia, Requested by Surgeon Sedation Type: Sedate with meaningful contact maintained Preparation: Sterile Prep Position: Supine Catheter: Indwelling Needle Types: Pajunk Needle Gauge: 21 Ultrasound used to visualize needle placement: Yes Ultrasound used to observe medication spread: Yes Injectate: Other (see comment) (0.25% ropivacaine 30cc per side) Blood Aspirated: No Pain Paresthesia on Injection Noted: No Resistance on Injection: Normal Image Stored and Saved: Yes Events: Uneventful and Well Tolerated
[2019-07-24 14:44] LABS: Lymphocytes # (M) 0.41 k/uL (1.0-4.8); Neutrophils % (M) 71 %; Nucleated Red Blood Cells 0 /100 WBC (0-0); Total Cells Counted 100
[2019-07-24 15:02] LABS: Calcium 9.6 mg/dL (8.4-10.2); Potassium 4.6 mmol/L (3.5-5.1); Total Protein 6.4 g/dL (6.3-8.2)
[2019-07-24] MEDS ORDERED: ROCURONIUM BROMIDE 10 MG/ML 10 ML VIAL IV ONE (15:31)
[2019-07-24] MEDS ORDERED: NEOSTIGMINE 1 MG/ML 10 ML VIAL ONE (15:31)
[2019-07-24] MEDS ORDERED: INDOCYANINE GREEN 25 MG VIAL IV ONE (15:31)
[2019-07-24] MEDS ORDERED: ePHEDrine SULFATE/0.9% NACL/PF 50 MG/5 ML SYRINGE IV ONE (15:31)
[2019-07-24] MEDS ORDERED: GLYCOPYRROLATE 0.2 MG/ML 2 ML VIAL ONE (15:31)
[2019-07-24] MEDS ORDERED: SUCCINYLCHOLINE CHLORIDE 100 MG/5 ML SYR IV ONE (15:31)
[2019-07-24] MEDS ORDERED: fentaNYL (PF) 50 MCG/ML 2 ML AMP ONE (15:31)
[2019-07-24] MEDS ORDERED: LIDOCAINE 1% INJ 10MG/ML (20 ML MDV) ONE (15:31)
[2019-07-24] MEDS ORDERED: ROPIVACAINE 5 MG/ML 30 ML VIAL ONE (15:31)
[2019-07-24] MEDS ORDERED: PROPOFOL 10 MG/ML 20 ML VIAL IV ONE (15:31)
[2019-07-24] MEDS ORDERED: BUPIVACAIN-EPI 0.25%-1:200,000 30 ML VIAL SQ ONE (15:50)
[2019-07-24] MEDS ORDERED: LACTATED RINGERS 1,000 ML IV ONE ×2 (16:12)
[2019-07-24 17:15] VITALS: TEMP 97.3
[2019-07-24 17:45] VITALS: RESP 16
[2019-07-24] MEDS ORDERED: TAMSULOSIN 0.4 MG CAP.ER.24H PO ONE (18:00)
[2019-07-24 18:49] VITALS: BP 159/77; PULSE 65
--- NOTE | 2019-07-24 20:35 | P.OP ---
Date of Procedure: 07/24/19 Description of Procedure: SURGEON: ASHLEE LYNCH MD CASTING PLUG ASSEMBLER: None. PREOPERATIVE DIAGNOSIS: 1. Symptomatic gallstones 2. History of elevated liver enzymes 3. Splenomegaly with systemic lymphadenopathy 4. Bilateral inguinal lymphadenopathy 5. History of recent bilateral total hip arthroplasty within last 6 to 10 months 6. Bilateral groin swelling 7. Pre-existing bladder urgency POSTOPERATIVE DIAGNOSIS: 1. Symptomatic gallstones 2. History of elevated liver enzymes 3. Splenomegaly with systemic lymphadenopathy 4. Bilateral inguinal lymphadenopathy 5. History of recent bilateral total hip arthroplasty within last 6 to 10 months 6. Bilateral groin swelling 7. Pre-existing bladder urgency OPERATION: 1. Robotic-assisted da Mallory Xi laparoscopic cholecystectomy, multiport with FIREFLY 2. Excision of left deep inguinal lymph node 6 x 3 cm, subfascial with hand-held LigaSure. ANESTHESIA: GETA, TEP, and local ESTIMATED BLOOD LOSS: 5 mL. SPECIMENS REMOVED: 1. Left inguinal deep lymph node biopsy sent fresh and permanent 2. Gallbladder COMPLICATIONS: None. FINDINGS: 1. Large left deep inguinal lymph node 6 x 3 cm excised in entirety using hand- held LigaSure 2. Consistency of lymph node soft without palpable calcifications 3. No evidence of bilateral inguinal hernias upon diagnostic laparoscopy 4. Liver surface unremarkable INDICATIONS: The patient is a pleasant 74-year-old gentleman who presents with over 6 month history of adenopathy of the bilateral groins. He had additional studies including CT of the abdomen and pelvis demonstrating new retroperitoneal lymphadenopathy including splenomegaly. Additionally, he had elevated liver enzymes prompting evaluation of the gallbladder consistent with symptomatic gallstones. Surgical options were discussed including excisional biopsy of the inguinal lymph nodes including cholecystectomy. Robotic assisted laparoscopic approach was described. Benefits and risks of the procedure including but not limited to bleeding, infection, injury to the biliary tree was described. Informed consent was obtained. DESCRIPTION OF PROCEDURE: Patient was brought to the operating room, placed in supine position. After general induction, the abdomen had been prepped and draped in standard sterile fashion in the bilateral groins. The robotic da Mallory XI system was primed. After timeout protocol was confirmed with the surgical team, a field block was created using local anesthetic along the left groin. Additionally, please note preoperative medication particularly of IV antibiotics where given. Bilateral SCDs for DVT prophylaxis had been confirmed. After a field block was placed, a transverse 7 cm incision was along the skin tension lines of the left groin was made. A large over 4 cm lymph node was palpated. Using hemostats and electro-Bovie cautery, the lymph node was soft and found extending into the deep fascia of the left groin. Care was taken to avoid any injury to neurovascular structures. No rupture of the lymph node had occurred upon complete excision with a hand held Ligasure. The specimen was divided and sent for fresh including formalin. Hemostasis was checked. The wound was closed in layers using 3-0 Vicryl interrupted fashion for the subcutaneous tissue. For the dermis, 4-0 Monocryl in a running subcuticular fashion was placed. Exofin tape with Optifoam was placed. Attention was brought to the gallbladder. The patient was injected with indocyanine green. A 5 mm 0 degrees laparoscopic trocar entry was performed along the left upper quadrant. The abdomen insufflated to 15 mmHg pressure which was tolerated well. Diagnostic laparoscopy demonstrated no injury to bowel viscera or mesentery. The liver surface was unremarkable. Next, two 8 mm robotic ports were placed along the right upper abdomen. The camera 8-mm port was maintained along the epigastrium. Another 8 mm port was placed along the left upper abdominal wall after exchanging the 5 mm port. Please note that the ports were placed at least 10 to 15 cm away from the target anatomy of the gallbladder. The robot was docked along the left lateral abdomen. The patient was repositioned in reverse Trendelenburg position. Using a grasper for arm 3, a grasper for arm 4, including hook cautery for arm 1, the robotic system was docked and primed as described. Instruments were interchanged by the public relations assistant including hook cautery, Bovie cautery and clip appliers. I had sat at the console. The gallbladder fundus was retracted over the dome of the liver. Initial attention was brought to the infundibulum which was gently retracted in the inferior lateral approach. Using a grasper, the cystic duct including the cystic artery was carefully skeletonized. FIREFLY was used to identify the cystic artery and cystic structures. A critical view of safety was obtained. Large PLASTIC clips were used throughout the entire case. Using a clip dry curer 2 clips were placed proximally, and 1 clip was placed between the infundibulum and cystic duct and divided using cautery. Next, the cystic artery was similarly clipped and cauterized. Electro-Bovie cautery was used to remove the gallbladder from the hepatic fossa. Hemostasis was checked and found to be adequate. The robot was undocked. I re-scrubbed into the case. Using a 10 mm Endo Catch bag via the left upper quadrant incision, the specimen was removed from the abdominal cavity. All pneumoperitoneum instruments were evacuated from the abdominal cavity. The incisions were reapproximated using 4-0 Monocryl in an interrupted subcuticular fashion. At the left upper quadrant, the fascia was oversewn using 0 Vicryl including Tavon Abreu. Please note along the trocar sites, local anesthetic was placed as a field block prior to insertion of all instruments. Liquid glue was applied to the skin. At the end of the procedure needle, sponge, and instrument count had been verified correct by the surgical elastic knitter hand frame. The patient was transferred to postanesthesia care unit in stable condition. The patient and family were pleased with level of care. Plan - Discharge Summary New Discharge Prescriptions: New Tamsulosin [Flomax] 0.4 mg PO DAILY #5 cap.er.24h Ibuprofen [Motrin] 600 mg PO Q8HR PRN #30 tab PRN Reason: Pain Acetaminophen Tab [Tylenol Tab] 500 mg PO Q6H PRN #30 tablet PRN Reason: Pain No Action Atorvastatin [Lipitor] 40 mg PO HS Cholecalciferol [Vitamin D3] 2,000 unit PO DAILY Multivitamins, Thera [Multivitamin] 1 tab PO QAM Aspirin 81 mg PO DAILY Fish Oil/Dha/Epa [Fish Oil 1,200 mg Fish Oil] 1 each PO DAILY Discharge Medication List Atorvastatin [Lipitor] 40 mg PO HS 07/28/16 [History] Cholecalciferol [Vitamin D3] 2,000 unit PO DAILY 07/28/16 [History] Multivitamins, Thera [Multivitamin] 1 tab PO QAM 07/28/16 [History] Aspirin 81 mg PO DAILY 09/12/18 [History] Fish Oil/Dha/Epa [Fish Oil 1,200 mg Fish Oil] 1 each PO DAILY 09/12/18 [History] Acetaminophen Tab [Tylenol Tab] 500 mg PO Q6H PRN #30 tablet 07/24/19 [Rx] Ibuprofen [Motrin] 600 mg PO Q8HR PRN #30 tab 07/24/19 [Rx] Tamsulosin [Flomax] 0.4 mg PO DAILY #5 cap.er.24h 07/24/19 [Rx] Follow up Appointment(s)/Referral(s): Ashlee Lynch MD [STAFF PHYSICIAN] - 07/29/19 Patient Instructions/Handouts: *Surgery [facility] - (Anesthesia) Discharge Instructions Outpatient Surgery, Lymphadenopathy (GEN), Lymph Node Biopsy (DC), Laparoscopic Cholecystectomy (DC) Activity/Diet/Wound Care/Special Instructions: DO NOT REMOVE DRESSING. KEEP DRESSING DRY ALONG GROIN. DRESSING TO BE REMOVED IN THE OFFICE. No lifting over 10 pounds in 2 weeks until Aug 07. Discharge Disposition: HOME SELF-CARE
== END 2019-07-24 18:54 | disposition home or self-care (01) ==
LOC: OR 12:42
PROVIDERS: ATTEND Surgery Plastic and Reconstructive Surgery
DX: K81.1 Chronic cholecystitis (principal); C85.15 Unspecified B-cell lymphoma, lymph nodes of inguinal region and lower limb; E78.5 Hyperlipidemia, unspecified; R16.1 Splenomegaly, not elsewhere classified; R59.0 Localized enlarged lymph nodes; R39.15 Urgency of urination; M19.90 Unspecified osteoarthritis, unspecified site; Z96.643 Presence of artificial hip joint, bilateral; Z79.82 Long term (current) use of aspirin; Z79.899 Other long term (current) drug therapy; Z86.010 Personal history of colon polyps; Z87.891 Personal history of nicotine dependence; Z80.0 Family history of malignant neoplasm of digestive organs
CPT/HCPCS: 64488; 88304; 88305; 80053; 85025; 38531; 47562; J2250; J1644; J1100; J2710; J0690; J2405; J2001; J3010; J2795; J0330; J2704; 88307; 88341; 88342

== ENCOUNTER 2019-08-07 11:47 | Day surgery (SDC) | payer MEDICARE ==
[2019-08-06 09:05] VITALS: BMI 23.8
[~2019-08-07 11:47] MED LIST changes: -HEPARIN SODIUM,PORCINE 5,000 UNIT/ML 1 ML VIAL SQ ONE; -INDOCYANINE GREEN 25 MG VIAL IV STA; +LIDOCAINE 1% 20 ML VIAL (10MG/ML) FOR IV START INTRADERMA PRN; +MIDAZOLAM 2 MG/2 ML VIAL IV PRN; -ONDANSETRON 4 MG/2 ML VIAL IVP PRN; +Pre Op ABX Message 1 EACH MISC MISCELLANE ONE; +SCOPOLAMINE 1.5MG/72HR PATCH TRANSDERM ONE
--- NOTE | 2019-08-07 12:39 | P.GSHP ---
History of Present Illness H&P Date: 08/07/19 CHIEF COMPLAINT: Lymphoma. HISTORY OF PRESENT ILLNESS: The patient is a 74-year-old male diagnosed with lymphoma. He needs a Mediport placement for chemotherapy. PAST MEDICAL HISTORY: See list PAST SURGICAL HISTORY: See list CURRENT MEDICATIONS: See list. ALLERGIES: See list. SOCIAL HISTORY: No active tobacco or alcohol use. FAMILY HISTORY: Noncontributory. REVIEW OF ORGAN SYSTEMS: CONSTITUTIONAL: Has weight loss. PHYSICAL EXAMINATION: Vital signs: Stable GENERAL: Well developed and in no acute distress. Pleasant. HEENT: No sclera icterus. Extraocular movements grossly intact. Moist buccal mucosa. Head is atraumatic, normocephalic. Hears conversational speech. No nasal drainage. NECK: Supple with lymphadenopathy. CHEST: Non-labored respirations and equal bilateral excursions. CARDIOVASCULAR: Regular rate and rhythm. Palpable 2+ radial pulses. ABDOMEN: Nontender. MUSCULOSKELETAL: No clubbing, cyanosis or edema. NEUROLOGIC: No focal or lateralizing signs. PSYCH: Appropriate affect. Alert and oriented to person, place and time. ASSESSMENT: 1. Lymphoma. 2. Need for chemotherapeutic access. PLAN: 1. Agree with Port-A-Cath placement. Past Medical History Past Medical History: Hyperlipidemia, Osteoarthritis (OA) Additional Past Medical History / Comment(s): hx colon polyps,positive guaiac stool History of Any Multi-Drug Resistant Organisms: None Reported Past Surgical History: Cholecystectomy, Joint Replacement Additional Past Surgical History / Comment(s): robotic kamilah and lymphnode removal on 07-24-19,COLONOSCOPY. laci hip replacement Past Anesthesia/Blood Transfusion Reactions: No Reported Reaction Additional Past Anesthesia/Blood Transfusion Reaction / Comment(s): No prior hx of anesthesia. Smoking Status: Former smoker - Past Family History Brother(s) Family Medical History: Cancer Additional Family Medical History / Comment(s): Colon CA. Medications and Allergies Home Medications Medication Instructions Recorded Confirmed Type Atorvastatin [Lipitor] 40 mg PO HS 07/28/16 08/06/19 History Cholecalciferol [Vitamin D3] 2,000 unit PO DAILY 07/28/16 08/06/19 History Multivitamins, Thera [Multivitamin] 1 tab PO QAM 07/28/16 08/06/19 History Aspirin 81 mg PO DAILY 09/12/18 08/06/19 History Fish Oil/Dha/Epa [Fish Oil 1,200 1 each PO DAILY 09/12/18 08/06/19 History mg Fish Oil] Acetaminophen Tab [Tylenol Tab] 500 mg PO Q6H PRN #30 tablet 07/24/19 08/06/19 Rx Ibuprofen [Motrin] 600 mg PO Q8HR PRN #30 tab 07/24/19 08/06/19 Rx Allergies Allergy/AdvReac Type Severity Reaction Status Date / Time No Known Allergies Allergy Verified 08/07/19 12:24 Surgical - Exam Vital Signs Temp Pulse Resp BP Pulse Ox 97.4 F L 66 14 166/72 99 08/07/19 12:17 08/07/19 12:17 08/07/19 12:17 08/07/19 12:17 08/07/19 12:17
[2019-08-07] MEDS ORDERED: MIDAZOLAM 2 MG/2 ML VIAL ONE (15:33)
[2019-08-07] MEDS ORDERED: PROPOFOL 10 MG/ML 20 ML VIAL IV ONE (15:33)
[2019-08-07] MEDS ORDERED: fentaNYL (PF) 50 MCG/ML 2 ML AMP ONE (15:33)
[2019-08-07] MEDS ORDERED: HEPARIN SODIUM 1,000 UN/ML (10ML VL) MISCELLANE ONE (15:35)
[2019-08-07] MEDS ORDERED: BUPIVACAINE (PF) 0.25% 30 ML VIAL SQ ONE (15:35)
[2019-08-07] MEDS ORDERED: LACTATED RINGERS 1,000 ML IV ONE (15:46)
[2019-08-07 16:36] VITALS: TEMP 97.7
--- NOTE | 2019-08-07 16:52 | P.OP ---
Date of Procedure: 08/07/19 Description of Procedure: SURGEON: ASHLEE LYNCH MD COTTON TIPPER: None. PREOPERATIVE DIAGNOSES: 1. Diffuse non-Hodgkin's lymphoma, new diagnosis 2. History of elevated liver enzymes 3. Splenomegaly with systemic lymphadenopathy 4. Bilateral inguinal lymphadenopathy 5. Need for chemotherapeutic access. POSTOPERATIVE DIAGNOSES: 1. Diffuse non-Hodgkin's lymphoma, new diagnosis 2. History of elevated liver enzymes 3. Splenomegaly with systemic lymphadenopathy 4. Bilateral inguinal lymphadenopathy 5. Need for chemotherapeutic access. PROCEDURES PERFORMED: 1. Ultrasound guided central venous access of the right internal jugular venous vein. 2. Fluoroscopic guidance for central venous access right internal jugular vein less than 1 seconds. 3. Placement of right internal jugular power port 6 Romanian by Bard. ANESTHESIA: IV sedation with 20 mL 1% lidocaine. ESTIMATED BLOOD LOSS: 5 mL. SPECIMENS REMOVED: None. COMPLICATIONS: None. The patient is a 74-year-old male recently diagnosed with Non-Hodgkins lymphoma. He now presents for chemotherapeutic access. Benefits and risks of surgical intervention were described including bleeding, infection, mechanical problems with her port. Informed consent was obtained. DESCRIPTION OR PROCEDURE: The patient was brought into the operating room, laid in supine position. After adequate IV sedation, the chest and right neck were prepped and draped in a standard sterile fashion including the shoulder with ChloraPrep. Timeout protocol was confirmed with the surgical team regarding the patient's name, procedure to be performed including preoperative medications for which he received Ancef 2 g IV piggyback. Bilateral SCDs were placed. An ultrasound was used to capture views of the right internal jugular vein including right carotid artery, which was patent and without thrombus along its course. The right IJ was then localized using anesthetic for the skin. A 16 Romanian needle was used to access the IJ. The needle was advanced into the IJ with successful dark nonpulsatile venous blood. A J-wire was placed under fluoroscopic guidance. The skin was generally localized using anesthetic along the proposed port site as well as subcutaneous tract. Two fingerbreadths distal to the clavicle, on the lateral third, a transverse 2-cm incision was deepened into the skin after localizing the skin. A pocket was created for the port. The port on the back table was flushed with heparinized saline and then attached to the catheter tubing. An adapter was fastened to the actual port site over the tubing. The port easily had fit snug into the pocket. A subcutaneous tunneler was placed along the open end of the tubing and brought out through the separate stab incision. Fluoroscopic guidance confirmed no kinking along the tubing and the port site. Next, the J-wire was exchanged for a catheter sheath for which the tubing was cut to 25 cm and then advanced through the catheter sheath. The Peel-away sheath was then removed and the tubing was secured at the junction of the superior vena cava as well as the right atrium. Easy pullback of the syringe with return and aspiration was obtained of the port. The skin incision was closed using layers using 3-0 Vicryl for the subcu followed by 4-0 Monocryl in a running subcuticular fashion. At the stick site this was also reapproximated using 4-0 Monocryl. The skin was cleansed and Dermabond was applied. The incisions were covered with Optifoam. A total of 20 mL of local anesthetic was placed. At the end of the procedure, needle, sponge, and instrument count was verified correct by helpdesk technician. Heparin lock of 4 mL was placed. The patient was awoken and pain free and taken to the second stage postanesthesia care unit. The patient tolerated the procedure well. FINDINGS: 1. No thrombus encountered along the right carotid artery or right internal jugular vein. 2. Access of the right internal jugular vein under ultrasound guidance. 3. Fluoroscopy of less than 1 seconds. 4. Final fluoroscopic image confirmed no mechanical kink of the port site or at the junction at the skin puncture site. Plan - Discharge Summary Discharge Rx Participant: No New Discharge Prescriptions: No Action Atorvastatin [Lipitor] 40 mg PO HS Cholecalciferol [Vitamin D3] 2,000 unit PO DAILY Multivitamins, Thera [Multivitamin] 1 tab PO QAM Aspirin 81 mg PO DAILY Fish Oil/Dha/Epa [Fish Oil 1,200 mg Fish Oil] 1 each PO DAILY Ibuprofen [Motrin] 600 mg PO Q8HR PRN #30 tab PRN Reason: Pain Acetaminophen Tab [Tylenol Tab] 500 mg PO Q6H PRN #30 tablet PRN Reason: Pain Discharge Medication List Atorvastatin [Lipitor] 40 mg PO HS 07/28/16 [History] Cholecalciferol [Vitamin D3] 2,000 unit PO DAILY 07/28/16 [History] Multivitamins, Thera [Multivitamin] 1 tab PO QAM 07/28/16 [History] Aspirin 81 mg PO DAILY 09/12/18 [History] Fish Oil/Dha/Epa [Fish Oil 1,200 mg Fish Oil] 1 each PO DAILY 09/12/18 [History] Acetaminophen Tab [Tylenol Tab] 500 mg PO Q6H PRN #30 tablet 07/24/19 [Rx] Ibuprofen [Motrin] 600 mg PO Q8HR PRN #30 tab 07/24/19 [Rx] Follow up Appointment(s)/Referral(s): Ashlee Lynch MD [STAFF PHYSICIAN] - As Needed Patient Instructions/Handouts: Implanted Venous Access Port (DC), How to Care for Your Implanted Venous Access Port (DC) Activity/Diet/Wound Care/Special Instructions: May shower. No bathtub soaks for 1 week until 08/14/19. Remove dressing 08/12/19 OR sooner for chemo access. Sleep on elevated pillows at least 3 for 3 days. Br uising is normal and subsides in 2 weeks. Take Tylenol or Motrin regularly for 24 hrs for pain, if needed. Use ice along incision to decrease swelling. Discharge Disposition: HOME SELF-CARE
--- NOTE | 2019-08-07 17:24 | XR ---
EXAMINATION TYPE: XR chest 1V confirm line [facility] DATE OF EXAM: 08/07/2019 COMPARISON: NONE HISTORY: Catheter placement TECHNIQUE: Single view FINDINGS: There is right central venous catheter with tip in the superior vena cava. Lungs are clear. Heart and mediastinum are normal. Diaphragm is normal. IMPRESSION: Normal chest
[2019-08-07 17:39] VITALS: RESP 16
[2019-08-07 18:30] VITALS: BP 130/70; PULSE 75
--- NOTE | 2019-08-08 07:16 | FL ---
Fluoroscopy INDICATION: Pain FINDINGS: Fluoroscopy time: 1 seconds. Images obtained: 1. IMPRESSIONS: 1. Documentation of fluoroscopy.
== END 2019-08-07 18:47 | disposition home or self-care (01) ==
LOC: OR 11:47
PROVIDERS: ATTEND Surgery Plastic and Reconstructive Surgery
DX: C85.90 Non-Hodgkin lymphoma, unspecified, unspecified site (principal); R16.1 Splenomegaly, not elsewhere classified; R59.1 Generalized enlarged lymph nodes; E78.5 Hyperlipidemia, unspecified; M19.90 Unspecified osteoarthritis, unspecified site; Z86.010 Personal history of colon polyps; Z90.49 Acquired absence of other specified parts of digestive tract; Z96.643 Presence of artificial hip joint, bilateral; Z87.891 Personal history of nicotine dependence; Z79.82 Long term (current) use of aspirin; Z79.899 Other long term (current) drug therapy; Z80.0 Family history of malignant neoplasm of digestive organs
CPT/HCPCS: 77001; 36561; C1788; J2250; J0690; J3010; J1644; J1642; J2704

== ENCOUNTER 2019-08-15 05:46 | Day surgery (SDC) | payer MEDICARE ==
[2019-08-14 09:31] VITALS: BMI 23.7
[~2019-08-15 05:46] MED LIST changes: -MIDAZOLAM 2 MG/2 ML VIAL IV PRN; -ONDANSETRON 4 MG/2 ML VIAL IVP ONE; -Pre Op ABX Message 1 EACH MISC MISCELLANE ONE; -SCOPOLAMINE 1.5MG/72HR PATCH TRANSDERM ONE
[2019-08-15 06:32] VITALS: RESP 18; TEMP 97.8
[2019-08-15] MEDS ORDERED: PROPOFOL 10 MG/ML 20 ML VIAL IV ONE (07:06)
--- NOTE | 2019-08-15 07:36 | PCN ---
PROCEDURE NOTE PREOPERATIVE DIAGNOSIS: Non-Hodgkin lymphoma. POSTOPERATIVE DIAGNOSIS: Non-Hodgkin lymphoma. PROCEDURE: Bone marrow aspirate and biopsy site right iliac crest. ANESTHESIA: Local with IV systemic sedation. DETAILS: Utilizing a sterile technique, the skin overlying the right iliac crest were prepared with Betadine and alcohol. After adequate sterile draping, local anesthesia with 1% lidocaine and systemic sedation, size 11.4 inch Jamshidi needle utilized to access the periosteum with ease. A total of 15 mL of aspirate and 3 cm bone core biopsy were obtained. The patient tolerated the procedure very well. There was no immediate procedure-related complications. TOTAL BLOOD LOSS: Less than 1 mL. RESULTS: Pending. MMODL / IJN: [id number] /
[2019-08-15 07:47] VITALS: BP 124/70; PULSE 67
[2019-08-15 08:11] LABS: HGB 12.7 gm/dL (13.0-17.5); MCHC 34.3 g/dL (31.0-37.0); MCV 90.2 fL (80.0-100.0); Mean Platelet Volume 7.6; Platelet Count 184 k/uL (150-450); RDW 14.6 % (11.5-15.5); Reticulocyte % 2.1 % (0.5-2.0); WBC 5.2 k/uL (3.8-10.6)
[2019-08-15 08:52] LABS: Eosinophils # (M) 0.05 k/uL (0-0.7); Lymphocytes # (M) 0.62 k/uL (1.0-4.8); Monocytes # (M) 0.99 k/uL (0-1.0); Neutrophils # (M) 3.54 k/uL (1.3-7.7); Neutrophils % (M) 68 %; Nucleated Red Blood Cells 0 /100 WBC (0-0); Total Cells Counted 100
== END 2019-08-15 07:54 | disposition home or self-care (01) ==
LOC: OR 05:46
PROVIDERS: ATTEND Internal Medicine Hematology & Oncology
DX: C83.33 Diffuse large B-cell lymphoma, intra-abdominal lymph nodes (principal); D64.9 Anemia, unspecified; D72.810 Lymphocytopenia; E78.5 Hyperlipidemia, unspecified; Z79.899 Other long term (current) drug therapy; Z90.49 Acquired absence of other specified parts of digestive tract; Z96.643 Presence of artificial hip joint, bilateral; Z98.890 Other specified postprocedural states; Z80.0 Family history of malignant neoplasm of digestive organs; Z86.19 Personal history of other infectious and parasitic diseases; Z87.891 Personal history of nicotine dependence; Z79.82 Long term (current) use of aspirin; Z79.1 Long term (current) use of non-steroidal anti-inflammatories (NSAID)
CPT/HCPCS: 85025; 85045; 38222; J2704

== ENCOUNTER → 2019-08-16 | Outpatient (CLI) | payer MEDICARE ==
--- NOTE | 2019-08-18 08:10 | PE ---
EXAMINATION TYPE: PET CT fusion skull to thigh DATE OF EXAM: 08/16/2019 COMPARISON: CT abdomen and pelvis April 11, 2019 HISTORY: Non-Hodgkin's lymphoma originally diagnosed July 24 on groin lymph node biopsy. TECHNIQUE: Following the intravenous administration of mCi of F-18 FDG, whole body images are perfor med from the skull base to the midthigh. Images are reviewed on the computer in the coronal, axial, and sagittal planes. Reconstructed rotating images are created on independent workstation and review ed on the computer. A noncontrast CT is performed in conjunction with the PET scan. SCAN: Initial Scan FINDINGS: MEDIASTINUM MEAN SUV: 1.03 LIVER MEAN SUV : 2.19s SKULL BASE AND NECK: Abnormal right submandibular lymph nodes are present, largest anteriorly measur es 1.8 x 1.6 cm axial image 52 with max SUV of 4.24. There are additional hypermetabolic lymph nodes at and above the hyoid bone near carotid vessels with abnormal lymph node axial image 53 having max S UV of 3.72. This is just superior to carotid bifurcation. There are abnormal bilateral supraclavicular lymph nodes near the inferior margin of the thyroid glan d axial image 73 with max SUV of 3.04 on the right and max SUV of 2.72 on the left. CHEST, MEDIASTINUM, AND HILAR REGION: Prominent but benign-appearing bilateral axillary lymph with re tained fatty hilum have mild hypermetabolic uptake, max SUV is 2.4 on the right. Abnormal mediastinal lymph nodes are present. For reference subcarinal lymph node measures 2.1 x 1.3 cm axial image 110 with max SUV of 3.06. For reference paracarinal lymph node measures 1.6 x 1.0 cm a xial image 102 with max SUV of 2.72. ABDOMEN AND PELVIS: Abnormal lymph node periPancreatic level posterior to pancreas anterior to IVC ax ial image 154 measures 2.3 x 1.7 cm with max SUV of 3.84. Abnormal lymph nodes at iliac bifurcation axial image 199 has max SUV of. Additional abnormal externa l iliac chain lymph nodes bilaterally with reference axial image 233 measuring 1.4 x 1.1 cm with a ma x SUV of 3.16. Additional bilateral hypermetabolic groin lymph nodes measures 2.5 x 1.5 cm, max SUV i s 3.67 axial image 253 left groin. Additional bilateral hypermetabolic groin lymph nodes are present largest on left measures 3.3 x 3.5 cm image 275 with max SUV of 7.86. OSSEOUS STRUCTURES: No suspicious hypermetabolic uptake. OTHER CT: Some mild eccentric mucosal thickening in inferior left maxillary sinus. Moderate calcified plaque bilateral carotid bulb level. Right internal jugular Mediport catheter terminates in right atrium. Mild cardiomegaly. Mild emphysem atous change. Coronary artery calcification which is noted marker frontal and coronary artery disease . Spleen and liver are normal in size without suspicious hypermetabolic uptake. Moderate calcified plaq ue abdominal aorta. Sigmoid colonic diverticula. Metallic hardware from a left hip arthroplasty causes streak artifact limiting evaluation of pelvic s tructures. There is grade 1 anterolisthesis L4 on L5. IMPRESSION: There is diffuse neoplastic or lymphoma involvement above and below the diaphragm as deta iled above. Extension into the right neck is noted. Deauville score 4.
== END | disposition home or self-care (01) ==
LOC: RADPETMAIN 08:05
PROVIDERS: ATTEND Internal Medicine Hematology & Oncology
DX: C83.33 Diffuse large B-cell lymphoma, intra-abdominal lymph nodes (principal)
CPT/HCPCS: 78815; A9552

== ENCOUNTER → 2019-08-22 | Outpatient (CLI) | payer MEDICARE ==
--- NOTE | 2019-08-22 10:38 | ECHOF ---
Referral Reason:Lymphoma C83.33 Z01.818 Pre Chemo MEASUREMENTS -------- HEIGHT: 182.9 cm WEIGHT: 79.4 kg BP: RVIDd: 2.3 cm (< 3.3) IVSd: 0.9 cm (0.6 - 1.1) LVIDd: 3.8 cm (3.9 - 5.3) LVPWd: 1.1 cm (0.6 - 1.1) IVSs: 1.4 cm LVIDs: 2.1 cm LVPWs: 1.7 cm LAESV Index (A-L): 27.19 ml/m Ao Diam: 2.9 cm (2.0 - 3.7) AV Cusp: 2.0 cm (1.5 - 2.6) LA Diam: 3.6 cm (2.7 - 3.8) MV EXCURSION: 16.920 mm (> 18.000) MV EF SLOPE: 64 mm/s (70 - 150) EPSS: 0.3 cm MV E Ghassan: 1.00 m/s MV DecT: 191 ms MV A Ghassan: 0.57 m/s MV E/A Ratio: 1.74 AR PHT: 435 ms RAP: 5.00 mmHg RVSP: 31.48 mmHg TAPSE: 27.98 mm FINDINGS -------- Sinus rhythm. This was a technically adequate study. The left ventricular size is normal. Left ventricular wall thickness is normal. Overall left vent ricular systolic function is normal with, an EF between 55 - 60 %. The diastolic filling pattern is normal for the age of the patient 11.86. The right ventricle is normal in size. Normal LA size by volume 22+/-6 ml/m2. The right atrial size is normal. Interatrial and interventricular septum intact. Aortic valve is trileaflet and is mildly thickened. Trace to mild aortic regurgitation. The mitral valve leaflets are mildly thickened. Dvec-sv-[id number] mitral regurgitation is present. The tricuspid valve appears structurally normal. Mild tricuspid regurgitation present. Right vent ricular systolic pressure is normal at < 35 mmHg. The right ventricular systolic pressure, as measu red by Doppler, is 31.48mmHg. Trace/mild (physiologic) pulmonic regurgitation. The aortic root size is normal. Normal inferior vena cava with normal inspiratory collapse consistent with estimated right atrial pre ssure of 5 mmHg. There is no pericardial effusion. CONCLUSIONS -------- 1. Sinus rhythm. 2. The left ventricular size is normal. 3. Left ventricular wall thickness is normal. 4. Overall left ventricular systolic function is normal with, an EF between 55 - 60 %. 5. The diastolic filling pattern is normal for the age of the patient 11.86 6. Normal LA size by volume 22+/-6 ml/m2. 7. Aortic valve is trileaflet and is mildly thickened. 8. Trace to mild aortic regurgitation. 9. The mitral valve leaflets are mildly thickened. 10. [id number] mitral regurgitation is present. 11. Mild tricuspid regurgitation present. 12. Right ventricular systolic pressure is normal at < 35 mmHg. 13. Trace/mild (physiologic) pulmonic regurgitation. 14. There is no pericardial effusion. DRAGLINE OILER: Sandra Baker RDCS
== END | disposition home or self-care (01) ==
LOC: RADECHMAIN 08:17
PROVIDERS: ATTEND Internal Medicine Hematology & Oncology
DX: I08.3 Combined rheumatic disorders of mitral, aortic and tricuspid valves (principal); C83.33 Diffuse large B-cell lymphoma, intra-abdominal lymph nodes
CPT/HCPCS: 93306

== ENCOUNTER → 2019-10-24 | Outpatient (CLI) | payer MEDICARE ==
--- NOTE | 2019-10-28 06:47 | PE ---
EXAMINATION TYPE: PET CT fusion skull to thigh DATE OF EXAM: 10/24/2019 COMPARISON: Prior PET/CT August 16, 2019. HISTORY: Non-Hodgkin lymphoma progress study. Diagnosed in the left groin on biopsy July 2019 com pleted chemotherapy October 16, 2019. TECHNIQUE: Following the intravenous administration of 11.9 mCi of F-18 FDG, whole body images are p erformed from the skull base to the midthigh. Images are reviewed on the computer in the coronal, ax ial, and sagittal planes. Reconstructed rotating images are created on independent workstation and r eviewed on the computer. A noncontrast CT is performed in conjunction with the PET scan. SCAN: Subsequent Scan FINDINGS: Mediastinum mean SUV: 1.02 Lung mean SUV: 1.83 SKULL BASE AND NECK: Interval improvement in abnormal right submandibular adenopathy on current stud y. Additional interval improvement in right neck and bilateral supraclavicular adenopathy. Lymph node s are diminished in size and currently ametabolic in the neck. No new areas of abnormal hypermetaboli c uptake. CHEST, MEDIASTINUM, AND HILAR REGION: Interval improvement in prominent mildly hypermetabolic bilater al axillary lymph nodes which are currently ametabolic and diminished in size from prior. Interval im provement in mediastinal adenopathy which are currently subcentimeter and diminished in size and amet abolic. ABDOMEN AND PELVIS: Abnormal hypermetabolic uptake in the peripancreatic lymph node near image 153 lozada s resolved. Lymph nodes diminished in size. Hypermetabolic enlarged lymph node along the external iliac chain vessels in the mid to lower pelvis has resolved along with diminished size to the lymph nodes. Bilateral hypermetabolic groin adenopathy show significant improvement without residual greater than 1 cm adenopathy or hypermetabolic uptake. Left groin show small oval hypodense area or fluid collection image 265 consistent with resolving po stsurgical seroma diminished in size from prior OSSEOUS STRUCTURES: Mild diffuse uptake thoracolumbar spine consistent with product of chemotherapy. No new areas of suspicious hypermetabolic uptake. OTHER CT: Some mild eccentric mucosal thickening in inferior left maxillary sinus is redemonstrated. Moderate calcified plaque bilateral carotid bulb level again seen. Stable right internal jugular Mediport catheter. Stable Mild cardiomegaly. Stable Mild emphysematous change. Coronary artery calcification which is noted marker for underlying coronary artery disease is redemonstrated. Spleen and liver remain normal in size without suspicious hypermetabolic uptake. Moderate calcified p laque abdominal aorta. Sigmoid colonic diverticula. Metallic hardware from bilateral hip arthroplasty causes streak artifact limiting evaluation of pelvic structures. There is grade 1 anterolisthesis L4 on L5. Lower lumbar facet arthropathy redemonstrated. IMPRESSION: Marked positive treatment response without current greater than 1 cm adenopathy or residu al abnormal hypermetabolic uptake. Deauville score 1
== END | disposition home or self-care (01) ==
LOC: RADPETMAIN 16:31
PROVIDERS: ATTEND Internal Medicine Hematology & Oncology
DX: C83.33 Diffuse large B-cell lymphoma, intra-abdominal lymph nodes (principal)
CPT/HCPCS: 78815; A9552

== ENCOUNTER → 2019-10-30 | Outpatient (CLI) | payer MEDICARE ==
--- NOTE | 2019-10-30 11:01 | ECHOF ---
Referral Reason:Z01.818 Encounter for other preprocedural examinat MEASUREMENTS -------- HEIGHT: 182.9 cm WEIGHT: 77.1 kg BP: RVIDd: 4.4 cm (< 3.3) IVSd: 1.2 cm (0.6 - 1.1) LVIDd: 3.9 cm (3.9 - 5.3) LVPWd: 1.3 cm (0.6 - 1.1) IVSs: 1.7 cm LVIDs: 2.3 cm LVPWs: 1.7 cm LAESV Index (A-L): 36.50 ml/m Ao Diam: 2.9 cm (2.0 - 3.7) AV Cusp: 1.7 cm (1.5 - 2.6) MV EXCURSION: 19.459 mm (> 18.000) MV EF SLOPE: 71 mm/s (70 - 150) EPSS: 0.3 cm MV E Ghassan: 0.59 m/s MV DecT: 170 ms MV A Ghassan: 0.57 m/s MV E/A Ratio: 1.04 AR PHT: 268 ms RAP: 5.00 mmHg RVSP: 34.98 mmHg FINDINGS -------- Sinus rhythm. This was a technically good study. The left ventricular size is normal. There is mild concentric left ventricular hypertrophy. Overa ll left ventricular systolic function is normal with, an EF between 55 - 60 %. The diastolic fillin g pattern is normal for the age of the patient 7.46. The right ventricle is moderately enlarged. LA is moderately dilated 34-39 ml/m2 The right atrium is mildly enlarged. Interatrial and interventricular septum intact. The aortic valve is trileaflet and appears structurally normal. There is mild aortic valve sclerosi s. There is mild aortic regurgitation. [id number] mitral regurgitation is present. Mild tricuspid regurgitation present. There is borderline pulmonary artery hypertension. The righ t ventricular systolic pressure, as measured by Doppler, is 34.98mmHg. There is no pulmonic regurgitation present. The aortic root size is normal. Normal inferior vena cava with normal inspiratory collapse consistent with estimated right atrial pre ssure of 5 mmHg. There is no pericardial effusion. CONCLUSIONS -------- 1. Sinus rhythm. 2. This was a technically good study. 3. The left ventricular size is normal. 4. There is mild concentric left ventricular hypertrophy. 5. Overall left ventricular systolic function is normal with, an EF between 55 - 60 %. 6. The diastolic filling pattern is normal for the age of the patient 7.46 7. The right ventricle is moderately enlarged. 8. LA is moderately dilated 34-39 ml/m2 9. The right atrium is mildly enlarged. 10. Interatrial and interventricular septum intact. 11. The aortic valve is trileaflet and appears structurally normal. 12. There is mild aortic valve sclerosis. 13. There is mild aortic regurgitation. 14. Uhug-qi-subxtynr mitral regurgitation is present. 15. Mild tricuspid regurgitation present. 16. There is borderline pulmonary artery hypertension. 17. The right ventricular systolic pressure, as measured by Doppler, is 34.98mmHg. 18. There is no pulmonic regurgitation present. 19. The aortic root size is normal. 20. Normal inferior vena cava with normal inspiratory collapse consistent with estimated right atrial pressure of 5 mmHg. 21. There is no pericardial effusion. [employer]: Aissatou Menchaca RDCS
== END | disposition home or self-care (01) ==
LOC: RADECHMAIN 08:22
PROVIDERS: ATTEND Internal Medicine Hematology & Oncology
DX: I08.3 Combined rheumatic disorders of mitral, aortic and tricuspid valves (principal); I27.21 Secondary pulmonary arterial hypertension
CPT/HCPCS: 93306

== ENCOUNTER → 2020-01-16 | Outpatient (CLI) | payer MEDICARE ==
--- NOTE | 2020-01-19 08:09 | PE ---
EXAMINATION TYPE: PET CT fusion skull to thigh DATE OF EXAM: 01/16/2020 COMPARISON: Prior PET/CT October 24, [address] abdomen and pelvis April 11, 2019 HISTORY: Non-Hodgkin lymphoma progress study. Lymphoma originally diagnosed in the groin July completed chemotherapy December 17, 2019. TECHNIQUE: Following the intravenous administration of 9.57 mCi of F-18 FDG, whole body images are p erformed from the skull base to the midthigh. Images are reviewed on the computer in the coronal, ax ial, and sagittal planes. Reconstructed rotating images are created on independent workstation and r eviewed on the computer. A noncontrast CT is performed in conjunction with the PET scan. SCAN: Subsequent Scan FINDINGS: Mean SUV mediastinum: 1.13 Mean SUV liver: 2.15 SKULL BASE AND NECK: No recurrent hypermetabolic lymph nodes in the right neck or supraclavicular re gions bilaterally. CHEST, MEDIASTINUM, AND HILAR REGION: No suspicious hypermetabolic axillary or mediastinal adenopathy on current study. No obvious enlarged lymph nodes on current study. No new hypermetabolic lymph node s are present. ABDOMEN AND PELVIS: No recurrent hypermetabolic upper to mid abdominal adenopathy towards the pancrea tic region. Iliac chain adenopathy shows no active recurrence or new suspicious enlarging lymph nodes extending into the bilateral groin region. No new suspicious hypermetabolic uptake noted. OSSEOUS STRUCTURES: Interval improvement in mild diffuse osseous uptake throughout the thoracolumbar spine. No new areas of suspicious hypermetabolic uptake. OTHER CT: Moderate calcified plaque bilateral carotid bulb level again seen. Stable right internal jugular Mediport catheter. Stable Mild cardiomegaly. Stable Mild emphysematous change. Moderate Coronary artery calcification redemonstrated which is noted marker for underlying co ronary artery disease . Spleen and liver remain normal in size without suspicious hypermetabolic uptake. Moderate calcified p laque abdominal aorta. Sigmoid colonic diverticula redemonstrated. Metallic hardware from bilateral hip arthroplasty causes streak artifact limiting evaluation of pelvi c structures. Multilevel spurring in the spine. Stable grade 1 borderline grade 2 anterolisthesis L4 on L5. Lower lumbar facet arthropathy redemonstrated. IMPRESSION: Continued complete metabolic response without suspicious enlarged or hypermetabolic adeno lucita on the current study. Deauville Score 1.
== END | disposition home or self-care (01) ==
LOC: RADPETMAIN 12:50
PROVIDERS: ATTEND Internal Medicine Hematology & Oncology
DX: C83.33 Diffuse large B-cell lymphoma, intra-abdominal lymph nodes (principal); Z92.21 Personal history of antineoplastic chemotherapy
CPT/HCPCS: 78815; A9552

== ENCOUNTER → 2020-02-25 | Day surgery (SDC) | payer MEDICARE ==
[2020-02-23 11:18] VITALS: BMI 23.0
[~2020-02-25] MED LIST changes: -DEXAMETHASONE SOD PHOSPHATE 10 MG/ML 1 ML VIAL IV ONE; -HYDROmorphone 0.5 MG/0.5 ML SYRINGE IVP PRN; +LACTATED RINGERS 1,000 ML IV ONE; +LIDOCAINE 1% (10MG/ML) FOR IV START INTRADERMA PRN; -LIDOCAINE 1% 20 ML VIAL (10MG/ML) FOR IV START INTRADERMA PRN; +PROPOFOL 10 MG/ML 20 ML VIAL IV ONE
--- NOTE | 2020-02-25 07:39 | PCN ---
PROCEDURE NOTE DATE OF PROCEDURE: 02/25/2020 PROCEDURE: Bone marrow aspirate and biopsy. PREOPERATIVE DIAGNOSIS: Non-Hodgkin lymphoma. POSTOPERATIVE DIAGNOSIS: Non-Hodgkin lymphoma. ANESTHESIA: Local with IV systemic sedation. SITE: Right iliac crest. DETAILS: Utilizing sterile technique, the skin overlying the right iliac crest was prepared with Betadine and alcohol. After adequate sterile draping, local anesthesia with 2% lidocaine and systemic sedation, a size 11, 4-inch Jamshidi needle was utilized to access the periosteum with ease. A total of 15 mL of aspirate and 4 cm bone core biopsies were obtained. The patient tolerated the procedure well. There was no immediate procedure related complications. TOTAL BLOOD LOSS: Less than 1 mL. RESULTS: Pending. MMODL / IJN: [id number] /
[2020-02-25 08:15] LABS: Basophils % (A) 0 %; Eosinophils # (A) 0.1 k/uL (0-0.7); Eosinophils % (A) 3 %; HCT 36.4 % (39.0-53.0); HGB 11.9 gm/dL (13.0-17.5); Lymphocytes # (A) 0.5 k/uL (1.0-4.8); Lymphocytes % (A) 14 %; MCH 33.7 pg (25.0-35.0); MCHC 32.6 g/dL (31.0-37.0); MCV 103.4 fL (80.0-100.0); Macrocytosis Slight; Mean Platelet Volume 7.9; Monocytes # (A) 0.3 k/uL (0-1.0); Monocytes % (A) 9 %; Neutrophils # (A) 2.7 k/uL (1.3-7.7); Neutrophils % (A) 71 %; Platelet Count 168 k/uL (150-450); RBC 3.52 m/uL (4.30-5.90); RDW 12.8 % (11.5-15.5); Reticulocyte % 1.4 % (0.5-2.0); WBC 3.8 k/uL (3.8-10.6)
[2020-02-27 09:16] VITALS: BP 109/56; PULSE 56; RESP 16; TEMP 96.6
== END ==
LOC: OR 06:06
PROVIDERS: ATTEND Internal Medicine Hematology & Oncology
DX: C85.90 Non-Hodgkin lymphoma, unspecified, unspecified site (principal); E78.5 Hyperlipidemia, unspecified; M19.90 Unspecified osteoarthritis, unspecified site; Z79.899 Other long term (current) drug therapy; Z90.49 Acquired absence of other specified parts of digestive tract; Z92.21 Personal history of antineoplastic chemotherapy
CPT/HCPCS: 38222; 85025; 85045; J2704

== ENCOUNTER 2020-03-04 11:46 | Day surgery (SDC) | payer MEDICARE ==
[2020-03-02 11:43] VITALS: BMI 22.6
--- NOTE | 2020-03-04 05:37 | P.GSHP ---
History of Present Illness H&P Date: 03/04/20 CHIEF COMPLAINT: Lymphoma HISTORY OF PRESENT ILLNESS: The patient is a 74-year-old male diagnosed with lymphoma. He had a Mediport placement. He presents for Port-A-Cath removal upon completion of his chemotherapy. PAST MEDICAL HISTORY: See list. PAST SURGICAL HISTORY: See list. CURRENT MEDICATIONS: See list. ALLERGIES: See list. SOCIAL HISTORY: No active tobacco or alcohol use. FAMILY HISTORY: Noncontributory. REVIEW OF ORGAN SYSTEMS: CONSTITUTIONAL: Denies any fever or chills. PHYSICAL EXAMINATION: Vital signs: Stable GENERAL: Well developed female and in no acute distress. Pleasant. HEENT: No sclera icterus. Extraocular movements grossly intact. Moist buccal mucosa. Head is atraumatic, normocephalic. Hears conversational speech. No nasal drainage. NECK: Supple without lymphadenopathy. No JV distention. CHEST: Non-labored respirations and equal bilateral excursions. CARDIOVASCULAR: Regular rate and rhythm. Palpable 2+ radial pulses. ABDOMEN: Nontender. MUSCULOSKELETAL: No clubbing, cyanosis or edema. NEUROLOGIC: No focal or lateralizing signs. PSYCH: Appropriate affect. Alert and oriented to person, place and time. ASSESSMENT: 1. Lymphoma 2. Need for chemotherapeutic access. PLAN: 1. Agree with Port-A-Cath removal per patient's request. Past Medical History Past Medical History: Cancer, Hyperlipidemia, Osteoarthritis (OA) Additional Past Medical History / Comment(s): hx colon polyps, NEW DX NON HODGKIN'S LYMPHOMA 06/07, last chemo 12/18/19 History of Any Multi-Drug Resistant Organisms: None Reported Past Surgical History: Cholecystectomy, Joint Replacement Additional Past Surgical History / Comment(s): robotic kamilah and lymphnode removal on 07-24-19,COLONOSCOPY. laci hip replacement , PORT A CATH INSERTION 08/07/19 Past Anesthesia/Blood Transfusion Reactions: No Reported Reaction Additional Past Anesthesia/Blood Transfusion Reaction / Comment(s): . Smoking Status: Former smoker - Past Family History Brother(s) Family Medical History: Cancer Additional Family Medical History / Comment(s): Colon CA. Medications and Allergies Home Medications Medication Instructions Recorded Confirmed Type Atorvastatin [Lipitor] 40 mg PO HS 07/28/16 03/02/20 History Cholecalciferol [Vitamin D3] 2,000 unit PO DAILY 07/28/16 03/02/20 History Multivitamins, Thera [Multivitamin] 1 tab PO QAM 07/28/16 03/02/20 History Fish Oil/Dha/Epa [Fish Oil 1,200 1 each PO DAILY 09/12/18 03/02/20 History mg Fish Oil] Allergies Allergy/AdvReac Type Severity Reaction Status Date / Time No Known Allergies Allergy Verified 03/02/20 11:38
[~2020-03-04 11:46] MED LIST changes: +DEXAMETHASONE SOD PHOSPHATE 10 MG/ML 1 ML VIAL IV ONE; +HYDROmorphone 0.5 MG/0.5 ML SYRINGE IVP PRN; -LACTATED RINGERS 1,000 ML IV ONE; -LIDOCAINE 1% (10MG/ML) FOR IV START INTRADERMA PRN; +ONDANSETRON 4 MG/2 ML VIAL IVP ONE; -PROPOFOL 10 MG/ML 20 ML VIAL IV ONE
[2020-03-04 12:08] VITALS: RESP 16; TEMP 98.4
[2020-03-04] MEDS ORDERED: LIDOCAINE 1% (10MG/ML) FOR IV START INTRADERMA ONE (12:18)
[2020-03-04] MEDS ORDERED: ONDANSETRON 4 MG/2 ML VIAL ONE (12:22)
[2020-03-04] MEDS ORDERED: MIDAZOLAM 2 MG/2 ML VIAL ONE (13:08)
[2020-03-04] MEDS ORDERED: PROPOFOL 10 MG/ML 20 ML VIAL IV ONE (13:08)
[2020-03-04] MEDS ORDERED: LIDOCAINE 1% INJ 10MG/ML (20 ML MDV) ONE (13:08)
[2020-03-04] MEDS ORDERED: fentaNYL (PF) 50 MCG/ML 2 ML AMP ONE (13:08)
[2020-03-04] MEDS ORDERED: BUPIVACAIN-EPI 0.25%-1:200,000 30 ML VIAL SQ ONE ×2 (13:21→13:36)
--- NOTE | 2020-03-04 14:01 | P.OP ---
Date of Procedure: 03/04/20 Description of Procedure: SURGEON: ASHLEE LYNCH MD CERTIFIED DIABETES EDUCATOR: None. PREOPERATIVE DIAGNOSIS: 1. Lymphoma 2. Chemotherapeutic venous access. POSTOPERATIVE DIAGNOSIS: 1. Lymphoma 2. Chemotherapeutic venous access. OPERATION: Removal of right internal jugular vein Port-A-Cath. ANESTHESIA: MAC with 30 mL local. ESTIMATED BLOOD LOSS: 1 mL SPECIMENS REMOVED: Port-A-Cath COMPLICATIONS: None. INDICATIONS: The patient is a 74-year-old male who completed chemotherapy. He now has elected for removal. Benefits and risks were described. Informed consent was obtained. DESCRIPTION OF PROCEDURE: Patient was brought to the operating room, laid in supine position. After IV sedation the chest wall was prepped and draped in standard sterile fashion. Prior to incision, a timeout protocol was confirmed with surgical team regarding the patient's name including procedures to be performed. As this was a clean case, no further antibiotics were required. Additionally, early ambulation was encouraged for DVT prophylaxis. Attention was brought to the area of the port site, whereby a total of 30 mL of local was infiltrated into the skin for a field block. A #15 blade was used to incise along the previous cicatrix. Electro- Bovie cautery was used to control for hemostasis. Adhesions were lysed around the Mediport. The port was extracted without sequelae. Pressure for 2 minutes was placed along the internal jugular vein. Hemostasis was checked along the pocket of the Port-A-Cath site. The wound was closed in layers using 3-0 Vicryl for the deep subcutaneous tissues followed by 4-0 Monocryl in a running subcuticular fashion. The skin was cleansed with dilute hydrogen peroxide. Exofin was applied. Optifoam was applied to the skin. At the end of the procedure needle, sponge and instrument counts were verified correct by the surgical sales representative. The patient had tolerated the procedure well and was taken to postanesthesia care in stable condition. FINDINGS: 1. Unremarkable Port-a-cath extraction. Plan - Discharge Summary Discharge Rx Participant: No New Discharge Prescriptions: New Acetaminophen Tab [Tylenol Tab] 500 mg PO Q6H PRN #30 tablet PRN Reason: Pain Continue Atorvastatin [Lipitor] 40 mg PO HS Cholecalciferol [Vitamin D3 (25 Mcg = 1000 Iu)] 2,000 unit PO DAILY Multivitamins, Thera [Multivitamin (formulary)] 1 tab PO QAM Fish Oil/Dha/Epa [Fish Oil 1,200 mg Fish Oil] 1 each PO DAILY Discharge Medication List Atorvastatin [Lipitor] 40 mg PO HS 07/28/16 [History] Cholecalciferol [Vitamin D3 (25 Mcg = 1000 Iu)] 2,000 unit PO DAILY 07/28/16 [History] Multivitamins, Thera [Multivitamin (formulary)] 1 tab PO QAM 07/28/16 [History] Fish Oil/Dha/Epa [Fish Oil 1,200 mg Fish Oil] 1 each PO DAILY 09/12/18 [History] Acetaminophen Tab [Tylenol Tab] 500 mg PO Q6H PRN #30 tablet 03/04/20 [Rx] Follow up Appointment(s)/Referral(s): Ashlee Lynch MD [STAFF PHYSICIAN] - As Needed Patient Instructions/Handouts: Central Line Removal (DC) Activity/Diet/Wound Care/Special Instructions: May shower. No bathtub soaks for 2 weeks until 03/18/20. Remove dressing 03/08/19. Sleep on elevated pillows at least 3 for 3 days. Bruising is normal and subsides in 2 weeks. Take Tylenol or Motrin regularly for 24 hrs for pain, if needed. Use ice along incision to decrease swelling. Discharge Disposition: HOME SELF-CARE
[2020-03-04 14:17] VITALS: BP 120/60; PULSE 61
== END 2020-03-04 14:36 | disposition home or self-care (01) ==
LOC: OR 11:46
PROVIDERS: ATTEND Surgery Plastic and Reconstructive Surgery
DX: Z45.2 Encounter for adjustment and management of vascular access device (principal); C85.90 Non-Hodgkin lymphoma, unspecified, unspecified site; M19.90 Unspecified osteoarthritis, unspecified site; E78.5 Hyperlipidemia, unspecified; Z79.899 Other long term (current) drug therapy; Z96.643 Presence of artificial hip joint, bilateral; Z90.49 Acquired absence of other specified parts of digestive tract; Z92.21 Personal history of antineoplastic chemotherapy; Z87.891 Personal history of nicotine dependence; Z86.010 Personal history of colon polyps; Z80.0 Family history of malignant neoplasm of digestive organs
CPT/HCPCS: 36590; J2250; J1100; J0690; J2405; J2001; J3010; J2704

== ENCOUNTER 2020-05-12 10:16 | Day surgery (SDC) | payer MEDICARE ==
[2020-05-07 15:01] VITALS: BMI 23.0
--- NOTE | 2020-05-12 06:46 | P.GSHP ---
History of Present Illness H&P Date: 05/12/20 CHIEF COMPLAINT: Colon screen HISTORY OF PRESENT ILLNESS: The patient is a 74-year-old male who presents for colon screen. Lower endoscopy was offered for further evaluation and management. PAST MEDICAL HISTORY: Please see list. PAST SURGICAL HISTORY: Please see list. MEDICATIONS: Please see list. ALLERGIES: Please see list. SOCIAL HISTORY: No illicit drug use FAMILY HISTORY: No reports of Crohn disease or ulcerative colitis. REVIEW OF ORGAN SYSTEMS: CONSTITUTIONAL: No reports of fevers or chills. PHYSICAL EXAM: VITAL SIGNS: Stable GENERAL: Well-developed pleasant in no acute distress. HEENT: No scleral icterus. Extraocular movements grossly intact. Moist buccal mucosa. NECK: Supple without lymphadenopathy. CHEST: Unlabored respirations. Equal bilateral excursions. CARDIOVASCULAR: Regular rate and rhythm. Distal 2+ pulses. ABDOMEN: Soft, nontender, nondistended. MUSCULOSKELETAL: No clubbing, cyanosis, or edema. ASSESSMENT: 1. Colon screen. PLAN: 1. Recommend proceeding with a lower endoscopy Past Medical History Past Medical History: Cancer, Hyperlipidemia, Osteoarthritis (OA) Additional Past Medical History / Comment(s): hx colon polyps, NON HODGKIN'S LYMPHOMA(last chemo tx 12/18/19) History of Any Multi-Drug Resistant Organisms: None Reported Past Surgical History: Cholecystectomy, Joint Replacement Additional Past Surgical History / Comment(s): robotic cholecystectomy and lymph node removal on 07-24-19,COLONOSCOPY. laci hip replacement , PORT A CATH INSERTION 08/07/19/later removed, bone marrow biopsy Past Anesthesia/Blood Transfusion Reactions: No Reported Reaction Additional Past Anesthesia/Blood Transfusion Reaction / Comment(s): . Smoking Status: Former smoker - Past Family History Brother(s) Family Medical History: Cancer Additional Family Medical History / Comment(s): Colon CA. Medications and Allergies Home Medications Medication Instructions Recorded Confirmed Type Atorvastatin [Lipitor] 40 mg PO HS 07/28/16 05/07/20 History Cholecalciferol [Vitamin D3 (25 2,000 unit PO DAILY 07/28/16 05/07/20 History Mcg = 1000 Iu)] Multivitamins, Thera [Multivitamin 1 tab PO QAM 07/28/16 05/07/20 History (formulary)] [place]-3 Fatty Acids/Fish Oil [Fish 1 each PO BID 05/07/20 05/07/20 History Oil 1,000 mg Softgel] Allergies Allergy/AdvReac Type Severity Reaction Status Date / Time No Known Allergies Allergy Verified 05/07/20 14:51
[~2020-05-12 10:16] MED LIST changes: -DEXAMETHASONE SOD PHOSPHATE 10 MG/ML 1 ML VIAL IV ONE; -HYDROmorphone 0.5 MG/0.5 ML SYRINGE IVP PRN; +MIDAZOLAM 2 MG/2 ML VIAL IV PRN; -ONDANSETRON 4 MG/2 ML VIAL IVP ONE; +ONDANSETRON 4 MG/2 ML VIAL IVP PRN; +fentaNYL (PF) 50 MCG/ML 2 ML AMP IV PRN; +fentaNYL (PF) 50 MCG/ML 2 ML AMP IVP PRN
[2020-05-12 11:00] VITALS: RESP 16; TEMP 98.1
[2020-05-12] MEDS ORDERED: PROPOFOL 10 MG/ML 20 ML VIAL IV ONE (11:25)
[2020-05-12] MEDS ORDERED: LIDOCAINE 1% INJ 10MG/ML (20 ML MDV) ONE (11:25)
[2020-05-12 12:34] VITALS: BP 128/66; PULSE 63
--- NOTE | 2020-05-16 16:25 | P.PCN ---
Date of Procedure: 05/12/20 Description of Procedure: PREOPERATIVE DIAGNOSIS: Personal history of colon polyps Family history malignant colon polyps POSTOPERATIVE DIAGNOSIS: Personal history of colon polyps Family history malignant colon polyps Tubular adenoma cecum Tubular adenoma ascending colon Tubular adenoma in the transverse colon Tubular adenoma descending colon Sigmoid diverticulosis OPERATION: Colonoscopy to the ileocecal valve and appendiceal orifice, cecum Colonoscopy with multiple hot snare polypectomies Colonoscopy with cold forceps biopsies SURGEON: Ashlee Lynch MD. ANESTHESIA: MAC. INDICATIONS: The patient is an 74-year-old male who presents family history of malignant colon polyps and personal history of colon polyps. Last colonoscopy less than 5 years. Benefits and risks were described and informed consent was obtained. DESCRIPTION OF PROCEDURE: The patient had undergone Suprep. He had been brought into the operating room and laid in the left lateral decubitus position. After adequate intravenous sedation, the rectum was examined with 2% lidocaine jelly. The prostate was unremarkable. No external hemorrhoids were encountered. The rectal tone was within normal limits. No lesions were palpated in the rectal vault. An Olympus colonoscope was advanced and exchanged for a pediatric colonoscope due to small caliber lumen of the sigmoid colon. The scope was advanced until the cecum, ileocecal valve and appendiceal orifice were clearly viewed. Abdominal wall pressure was used to advance the scope. The prep was good. Sigmoid diverticulosis was encountered. Multiple colonic polyps were found and snare polypectomy. No evidence of focal colitis was found. Retroflexion of the scope demonstrated grade 1 internal hemorrhoids without active bleeding or inflammation. The colon was desufflated. The patient had tolerated the procedure well. Withdrawal time was over 6 minutes. FINDINGS: Aronchick preparation quality scale 2 (1-5) Internal hemorrhoids, grade 1 No external hemorrhoids No arteriovenous malformations Sigmoid diverticulosis Redundant sigmoid colon Removal of 4 polyps: - Snare polypectomy 40 cm from the anal verge, 5 mm tubulovillous adenoma polyp, descending colon - Snare polypectomy midtransverse colon, 6 mm flat villous adenoma polyp. - Snare polypectomy ascending colon, 4 mm flat villous adenoma polyp. - Cold forceps biopsy at cecum, 4 mm polyp. No focal colitis. RECOMMENDATIONS: Given severity of tubular adenomas, recommend repeat colonoscopy 2 years, 2021 Plan - Discharge Summary Discharge Rx Participant: No New Discharge Prescriptions: Continue Atorvastatin [Lipitor] 40 mg PO HS Cholecalciferol [Vitamin D3 (25 Mcg = 1000 Iu)] 2,000 unit PO DAILY Multivitamins, Thera [Multivitamin (formulary)] 1 tab PO QAM Hodgen-3 Fatty Acids/Fish Oil [Fish Oil 1,000 mg Softgel] 1 each PO BID Discharge Medication List Atorvastatin [Lipitor] 40 mg PO HS 07/28/16 [History] Cholecalciferol [Vitamin D3 (25 Mcg = 1000 Iu)] 2,000 unit PO DAILY 07/28/16 [Hi story] Multivitamins, Thera [Multivitamin (formulary)] 1 tab PO QAM 07/28/16 [History] Hodgen-3 Fatty Acids/Fish Oil [Fish Oil 1,000 mg Softgel] 1 each PO BID 05/07/20 [History] Follow up Appointment(s)/Referral(s): Ashlee Lynch MD [STAFF PHYSICIAN] - As Needed Patient Instructions/Handouts: *Surgery [facility] - (Anesthesia) Endoscopy Discharge Instructions, Diverticulosis (DC), Colorectal Polyps (DC), Diverticulosis Diet (GEN), Colonoscopy (DC) Activity/Diet/Wound Care/Special Instructions: Repeat colonoscopy 2 years, 2021 Discharge Disposition: HOME SELF-CARE
== END 2020-05-12 13:22 | disposition home or self-care (01) ==
LOC: ORWHC2ENDO 10:16
PROVIDERS: ATTEND Surgery Plastic and Reconstructive Surgery
DX: Z12.11 Encounter for screening for malignant neoplasm of colon (principal); D12.0 Benign neoplasm of cecum; D12.2 Benign neoplasm of ascending colon; D12.3 Benign neoplasm of transverse colon; D12.4 Benign neoplasm of descending colon; K57.30 Diverticulosis of large intestine without perforation or abscess without bleeding; K64.0 First degree hemorrhoids; Q43.8 Other specified congenital malformations of intestine; E78.5 Hyperlipidemia, unspecified; Z86.010 Personal history of colon polyps; Z85.72 Personal history of non-Hodgkin lymphomas; Z92.21 Personal history of antineoplastic chemotherapy; M19.90 Unspecified osteoarthritis, unspecified site; Z90.49 Acquired absence of other specified parts of digestive tract; Z96.643 Presence of artificial hip joint, bilateral; Z98.890 Other specified postprocedural states; Z87.891 Personal history of nicotine dependence; Z79.899 Other long term (current) drug therapy; Z80.0 Family history of malignant neoplasm of digestive organs
CPT/HCPCS: 88305; 45380; 45385; J2001; J2704

== ENCOUNTER → 2020-07-23 | Outpatient (CLI) | payer MEDICARE ==
--- NOTE | 2020-07-26 06:12 | PE ---
EXAMINATION TYPE: PET CT fusion skull to thigh DATE OF EXAM: 07/23/2020 COMPARISON: Prior PET/CT January 16, 2020 and older studies. HISTORY: Non-Hodgkin Lymphoma right groin diagnosed July 24, 2019 completed chemotherapy December 17, 2019. TECHNIQUE: Following the intravenous administration of 11.76 mCi of F-18 FDG, whole body images are performed from the skull base to the midthigh. Images are reviewed on the computer in the coronal, a xial, and sagittal planes. Reconstructed rotating images are created on independent workstation and reviewed on the computer. A noncontrast CT is performed in conjunction with the PET scan. SCAN: Subsequent Scan FINDINGS: Mean SUV mediastinum: 0.97 Mean SUV liver: 2.14 SKULL BASE AND NECK: No recurrent hypermetabolic lymph nodes in the right neck or supraclavicular re gions bilaterally. No new areas of abnormal hypermetabolic uptake. CHEST, MEDIASTINUM, AND HILAR REGION: No suspicious hypermetabolic axillary or mediastinal adenopathy on current study. No obvious enlarged lymph nodes on current study. No new hypermetabolic lymph node s are present. ABDOMEN AND PELVIS: No recurrent hypermetabolic upper to mid abdominal adenopathy towards the pancrea tic region. Iliac chain adenopathy shows no active recurrence or new suspicious enlarging lymph nodes extending into the bilateral groin region. No new suspicious hypermetabolic uptake noted. OSSEOUS STRUCTURES: No new areas of suspicious hypermetabolic uptake. OTHER CT: Mild to moderate calcified plaque bilateral carotid bulb level again seen. Interval removal of Mediport catheter. Stable Mild cardiomegaly. Stable Mild emphysematous change. Mo derate Coronary artery calcification redemonstrated which is noted marker for underlying coronary art vasquez disease . Spleen and liver remain normal in size without new suspicious hypermetabolic uptake. Moderate calcifi ed plaque abdominal aorta. Sigmoid colonic diverticula redemonstrated. Metallic hardware from bilateral hip arthroplasty causes streak artifact limiting evaluation of pelvi c structures. Multilevel spurring in the spine. Stable borderline grade 2 anterolisthesis L4 on L5. Lower lumbar facet arthropathy redemonstrated. IMPRESSION: Continued complete metabolic response without suspicious enlarged or new hypermetabolic a denopathy on the current study. Deauville Score 1.
== END | disposition home or self-care (01) ==
LOC: RADPETMAIN 08:20
PROVIDERS: ATTEND Internal Medicine Hematology & Oncology
DX: C83.33 Diffuse large B-cell lymphoma, intra-abdominal lymph nodes (principal)
CPT/HCPCS: 78815; A9552

== ENCOUNTER → 2021-03-04 | Outpatient (CLI) | payer MEDICARE ==
--- NOTE | 2021-03-07 09:59 | PE ---
EXAMINATION TYPE: PET CT fusion whole body DATE OF EXAM: 03/04/2021 COMPARISON: CT abdomen pelvis 08/07/2019 Prior PET/CT: 07/23/2020 HISTORY: Lymphoma, new area of concern reaction TECHNIQUE: Following the intravenous administration of 10.98 mCi of F-18 FDG, whole body images are performed from the skull base to the midthigh. Images are reviewed on the computer in the coronal, a xial, and sagittal planes. Reconstructed rotating images are created on independent workstation and reviewed on the computer. A localization and attenuation correction CT is performed in conjunction with the PET scan. DLP: 610.99 mGycm SCAN: Subsequent Blood glucose: 98 mg/dL Average Mediastinum SUV: 0.5 Average Liver SUV: 0.61 FINDINGS: NECK: No abnormal uptake THORAX: No abnormal uptake ABDOMEN: No abnormal uptake PELVIS: No abnormal uptake OSSEOUS STRUCTURES: There is a focus of radiotracer accumulation along the distal right anterior late ral bergeron. This appears somewhat intermediate in signal although focally intense with an SUV value of 0.69. Mild uptake is along the anterior lateral soft tissues of the right bergeron. There is intense uptake at the bilateral knee joint spaces more so on the right than the left. This h as SUV values in the range of 0.42. Findings are nonspecific. Differential could include infectious e tiologies. Lower metabolic activity lymphoma could be considered. LOCALIZATION CT: Subtle thickening at the distal anterolateral right bergeron is noted. COMPARISON: Neck chest abdomen and pelvis appears stable. The legs were out of the field of view prev iously. IMPRESSION: 1. Intermediate signal within the soft tissues of the right bergeron. This is nonspecific. Infection and inflammatory change could be considered. Low metabolic activity lymphoma is lowered within the differ ential. 2. Intense activity at the knees joint spaces can be related to degenerative changes. 3. No suspicious uptake elsewhere to suggest recurrent or metastatic lymphoma
== END | disposition home or self-care (01) ==
LOC: RADPETMAIN 09:35
PROVIDERS: ATTEND Internal Medicine Hematology & Oncology
DX: C83.33 Diffuse large B-cell lymphoma, intra-abdominal lymph nodes (principal)
CPT/HCPCS: 78816; A9552

== ENCOUNTER → 2021-06-17 | Outpatient (CLI) | payer MEDICARE ==
--- NOTE | 2021-06-21 15:45 | PE ---
Nuclear medicine PET/CT HISTORY: Lymphoma, C 83.33, subsequent, originally diagnosed right groin, right leg lesion Average liver SUV 3.1, average mediastinal SUV 2.4 Patient received 9.5 mCi F-18 FDG intravenously in delayed scanning was performed from the skull base through the legs. An attenuation correction CT, localization CT was also performed, correlation to [facility] PET/CT 03/04/2021 Chest and neck: There is no cervical or supraclavicular adenopathy, no suspicious uptake. No mediasti nal, axillary, or hilar adenopathy, retrocaval pretracheal node SUV 2.5. There are coronary artery ca lcifications present. No pleural or pericardial effusion, no evident lung mass. ABDOMEN: There is retroperitoneal adenopathy, hypermetabolic uptake is present in the aortocaval loca tion, SUV is 3.2. No suspicious uptake. No evident adrenal or liver mass. Aorta is dense. Diverticula r changes associated with the sigmoid colon. Some mild uptake noted along the right iliac region, SUV 3 and left iliac chains, SUV 2.4, there is right inguinal adenopathy, SUV 2.8-3.1 and previous measu rement 0.5, mild uptake left inguinal region, SUV 2.0. Osseous structures show no suspicious uptake. Within the soft tissues of the right bergeron there is foca l uptake measuring SUV 1.5. Uptake is also present at the level of the right foot plantar surface, S UV 3.2 IMPRESSION: Subsequent scan with findings as above. Additional nonspecific findings are listed.
== END | disposition home or self-care (01) ==
LOC: RADPETMAIN 08:53
PROVIDERS: ATTEND Internal Medicine Hematology & Oncology
DX: C83.33 Diffuse large B-cell lymphoma, intra-abdominal lymph nodes (principal)
CPT/HCPCS: 78816; A9552

== ENCOUNTER 2021-07-26 07:37 | Day surgery (SDC) | payer MEDICARE ==
[2021-07-22 12:06] VITALS: BMI 23.6
[2021-07-26 08:08] VITALS: BP 168/76; PULSE 70; RESP 16; TEMP 98.5
[2021-07-26 08:16] LABS: HGB 13.9 gm/dL (13.0-17.5); MCH 32.7 pg (25.0-35.0); MCHC 34.6 g/dL (31.0-37.0); MCV 94.5 fL (80.0-100.0); Mean Platelet Volume 7.2; Platelet Count 126 k/uL (150-450); RBC 4.24 m/uL (4.30-5.90); RDW 13.2 % (11.5-15.5); WBC 4.6 k/uL (3.8-10.6)
[2021-07-26 08:33] LABS: Potassium 4.5 mmol/L (3.5-5.1)
[2021-07-26] MEDS ORDERED: LIDOCAINE 1% INJ 10MG/ML (20 ML MDV) ONE (09:29)
[2021-07-26] MEDS ORDERED: LIDOCAINE 1% INJ 10MG/ML (20 ML MDV) SQ ONE (09:30)
[2021-07-26 11:08] LABS: Eosinophils # (M) 0.09 k/uL (0-0.7)
[2021-07-26 11:10] LABS: Anisocytosis (M) Present; Nucleated Red Blood Cells 0 /100 WBC (0-0); Poikilocytosis (M) Present; Total Cells Counted 200
--- NOTE | 2021-07-26 12:23 | IR ---
PICC LINE PLACEMENT: HISTORY: Infection requiring long-term antibiotic therapy PROCEDURE: Ultrasound and fluoroscopic guidance of PICC line placement. COMPLICATIONS: None ANESTHESIA: 1. 1% Lidocaine locally. FINDINGS/TECHNIQUE: The procedure was explained to the patient. The risks, complications, benefits and alternatives were discussed and any questions were answered. Informed consent was obtained. The patient was placed supine on the fluoroscopic table and prepped and draped in the usual sterile fash ion. Utilizing a 21 gauge needle and sonographic and fluoroscopic guidance, access in the left basi lic vein was achieved and there is placement of a 0.018 guidewire. The vein is patent. A 4-F sheath was placed over the guidewire. The guidewire and dilator were removed and a 4-F. PICC line was plac ed through the sheath with the tip at the level of the SVC. The sheath was removed, the catheter was flushed and sutured into position. The patient was stable throughout the procedure and remained sta ble upon discharge from the Department of Radiology. The vein puncture was patent under ultrasound. A johnson scale image was obtained to document patency of the vein punctured. All elements of the maximal barrier technique were utilized. FLUOROSCOPY TIME: 0.1 minutes and one image submitted IMPRESSION: Successful PICC line placement under ultrasound and fluoroscopic guidance.
[2021-07-26 13:00] LABS: Lymphocytes # (M) 1.33 k/uL (1.0-4.8); Monocytes # (M) 0.46 k/uL (0-1.0); Neutrophils # (M) 2.76 k/uL (1.3-7.7); Neutrophils % (M) 60 %
== END 2021-07-26 10:04 | disposition home or self-care (01) ==
LOC: CATHCVL 07:37
PROVIDERS: ATTEND Radiology Diagnostic Radiology
DX: B99.9 Unspecified infectious disease (principal); Z20.822 Contact with and (suspected) exposure to COVID-19
CPT/HCPCS: 36573; 80051; 82565; 84520; 85025; 87635; C1751; C1769; J2001

== ENCOUNTER 2021-07-27 14:55 | Inpatient (IN) | payer MEDICARE ==
[2021-07-27 15:49] LABS: Basophils % (A) 0 %; Eosinophils % (A) 0 %; HCT 42.2 % (39.0-53.0); HGB 13.4 gm/dL (13.0-17.5); Lymphocytes # (A) 0.4 k/uL (1.0-4.8); Lymphocytes % (A) 11 %; MCH 32.4 pg (25.0-35.0); MCHC 31.8 g/dL (31.0-37.0); Macrocytosis Slight; Mean Platelet Volume 7.5; Monocytes # (A) 0.1 k/uL (0-1.0); Monocytes % (A) 2 %; Neutrophils # (A) 2.8 k/uL (1.3-7.7); Neutrophils % (A) 85 %; Platelet Count 131 k/uL (150-450); RBC 4.14 m/uL (4.30-5.90); RDW 13.9 % (11.5-15.5); WBC 3.3 k/uL (3.8-10.6)
[2021-07-27 15:54] LABS: ALT 31 U/L (4-49); AST 36 U/L (17-59); African American GFR (CKD) 78 (>60 ml/min/1.73 sqM); Albumin 4.2 g/dL (3.5-5.0); Albumin/Globulin Ratio 1.7; Alkaline Phosphatase 114 U/L (38-126); Anion Gap 8 mmol/L; Blood Urea Nitrogen 15 mg/dL (9-20); Calcium 8.8 mg/dL (8.4-10.2); Carbon Dioxide 26 mmol/L (22-30); Chloride 100 mmol/L (98-107); Globulin 2.5 g/dL; Glucose 234 mg/dL (74-99); Non-African American GFR(CKD) 67 (>60 ml/min/1.73 sqM); Phosphorus 2.9 mg/dL (2.5-4.5); Potassium 4.8 mmol/L (3.5-5.1); Sodium 134 mmol/L (137-145); Total Bilirubin 0.4 mg/dL (0.2-1.3); Total Protein 6.7 g/dL (6.3-8.2); Uric Acid 5.3 mg/dL (3.5-8.5)
[2021-07-27 15:56] LABS: MCV 101.9 fL (80.0-100.0)
[2021-07-27] MEDS: SODIUM CHLORIDE 0.9% 1,000 ML IV SCH (16:03)
--- NOTE | 2021-07-27 16:36 | P.PN ---
Progress Note - Text Progress Note Date: 07/27/21 Patient has been admitted for Cycle One of R-ICE for recurrent DLBCL, recent positive pathology from left thigh. Full consult will follow. Blood glucose on arrival increased, BP also elevated. Telemetry for 24 hours and glucose monitoring. I have asked medical management team to follow along for this.
[2021-07-27] MEDS: ONDANSETRON 16 MG in SODIUM CHLORIDE 0.9% 50 ML IVPB SCH (17:16)
[2021-07-27 17:32] LABS: Glucose,Whole Blood 174 mg/dL (75-99)
[2021-07-27] MEDS ORDERED: ONDANSETRON 4 MG/2 ML VIAL IVP PRN (18:00)
[2021-07-27 18:07] LABS: Reticulocyte % 1.7 % (0.5-2.0)
[2021-07-27] MEDS: SODIUM CHLORIDE 0.9% IV SCH (18:09)
[2021-07-27] MEDS: ETOPOSIDE IV SCH (18:09)
[2021-07-27 18:16] LABS: LDH 775 U/L (313-618); Magnesium 2.1 mg/dL (1.6-2.3)
[2021-07-27 18:26] LABS: Prothrombin Time 10.4 sec (9.0-12.0)
[2021-07-27] MEDS: ATORVASTATIN 40 MG TAB PO SCH (19:57)
[2021-07-27] MEDS: SENNOSIDES-DOCUSATE SODIUM 1 EACH TAB PO SCH (19:57)
[2021-07-27 20:15] LABS: Glucose,Whole Blood 151 mg/dL (75-99)
[2021-07-28] MEDS: SODIUM CHLORIDE 0.9% 1,000 ML IV SCH ×3 (01:59→20:38)
[2021-07-28 05:48] LABS: Folate, Serum >20.00 ng/mL (4.40-31.00)
[2021-07-28 05:53] LABS: Appearance,Urine Clear (Clear); Bilirubin,Urine Negative (Negative); Blood,Urine Negative (Negative); Color,Urine Light Yellow; Glucose,Urine (UA) Negative (Negative); Ketones,Urine Negative (Negative); Leukocyte Esterase,Urine Negative (Negative); Nitrite,Urine Negative (Negative); Protein,Urine Negative (Negative); Specific Gravity,Urine 1.007 (1.001-1.035); Urobilinogen,Urine <2.0 mg/dL (<2.0)
[2021-07-28 06:47] LABS: Basophils % (A) 0 %; Eosinophils % (A) 0 %; HCT 36.1 % (39.0-53.0); HGB 11.7 gm/dL (13.0-17.5); Lymphocytes # (A) 0.5 k/uL (1.0-4.8); Lymphocytes % (A) 9 %; MCH 32.8 pg (25.0-35.0); MCHC 32.5 g/dL (31.0-37.0); Mean Platelet Volume 7.7; Monocytes # (A) 0.4 k/uL (0-1.0); Monocytes % (A) 7 %; Neutrophils # (A) 4.2 k/uL (1.3-7.7); Neutrophils % (A) 80 %; Platelet Count 113 k/uL (150-450); RBC 3.58 m/uL (4.30-5.90); RDW 13.3 % (11.5-15.5); WBC 5.2 k/uL (3.8-10.6)
[2021-07-28 07:43] LABS: Glucose,Whole Blood 89 mg/dL (75-99)
[2021-07-28] MEDS: SENNOSIDES-DOCUSATE SODIUM 1 EACH TAB PO SCH ×2 (07:58→20:23)
[2021-07-28] MEDS: CHOLECALCIFEROL 25 MCG (1000 IU) TABLET PO SCH (07:58)
[2021-07-28] MEDS: MULTIVITAMINS, THERA 1 EACH TAB PO SCH (07:58)
[2021-07-28] MEDS ORDERED: LOPERAMIDE 2 MG CAP PO PRN (09:18)
[2021-07-28 09:41] LABS: African American GFR (CKD) 76.2 (60.0-200.0); Albumin 3.7 g/dL (3.8-4.9); Albumin/Globulin Ratio 2.47 (1.60-3.17); Anion Gap 8.2 mmol/L (10.00-18.00); BUN/Creat Ratio 13.82 Ratio (12.00-20.00); Blood Urea Nitrogen 15.2 mg/dL (9.0-27.0); Calcium 8.4 mg/dL (8.7-10.3); Carbon Dioxide 23.8 mmol/L (20.0-27.5); Globulin 1.5 g/dL (1.6-3.3); Magnesium 2.2 mg/dL (1.5-2.4); Non-African American GFR(CKD) 65.8 (60.0-200.0); Phosphorus 3.3 mg/dL (2.4-5.1); Potassium 5.2 mmol/L (3.5-5.5); Total Bilirubin 0.3 mg/dL (0.30-1.20); Total Protein 5.2 g/dL (6.2-8.2); Uric Acid 6.2 mg/dL (3.7-8.7)
--- NOTE | 2021-07-28 11:36 | P.HPIM ---
History of Present Illness H&P Date: 07/28/21 Chief Complaint: DLBCL recurrent, admit for CIVI R-ICE Mr. Leon is a very pleasant pt of Dr. Sexton who first presented to his PCP Dr. Yuri Valentine with a painless left inguinal lump, first noted January 2019, persistent but not progressive. CT revealed suspicious intrapelvic/abdominal adenopathy as well as left inguinal lymphadenopathy. 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 Patient was negative for constitutional symptoms. PET scan was positive for disease above and below the diaphragm. Bone marrow positive for involvement with diffuse large B-cell lymphoma, stage IV-A. He was started on R CHOP August 2019. He tolerated treatment well. PET scan after 3 cycles showed a complete response. Patient did well on follow-up until 02/2021, single right bergeron lesion, biopsy diffuse large B-cell lymphoma, was treated with radiation only. 06/2021, PET scan no definite recurrence of disease but, multiple skin lesions noted on the lower extremities. Biopsy of L thigh lesion recurrent DLBL, similar to initial lymphoma diagnosed Jul 2019. On admission patient has no complaints on 14 point review of systems. He has been seen by Dr. Yung at [facility]. Plan is for treatment with RICE until SCT or CAR-T treatment plans. Review of Systems 14 point review of systems is negative stated in HPI Past Medical History Past Medical History: Cancer, Hyperlipidemia, Osteoarthritis (OA) Additional Past Medical History / Comment(s): hx colon polyps, NON HODGKIN'S LYMPHOMA(last chemo tx 12/18/19), leaky heart valve, constipation, finished radiation for "spot on laci legs" 04/26/2021, hx skin cancer History of Any Multi-Drug Resistant Organisms: None Reported Past Surgical History: Cholecystectomy, Joint Replacement Additional Past Surgical History / Comment(s): robotic cholecystectomy and lymph node removal on 07-24-19,COLONOSCOPY. laci hip replacement , PORT A CATH INSERTION 08/07/19/later removed, bone marrow biopsy x 2 Past Anesthesia/Blood Transfusion Reactions: No Reported Reaction Additional Past Anesthesia/Blood Transfusion Reaction / Comment(s): . Past Psychological History: No Psychological Hx Reported Smoking Status: Former smoker Past Alcohol Use History: None Reported Additional Past Alcohol Use History / Comment(s): Smoked less t< 1 ppd for 3 years, quit at age 25 y.o. Past Drug Use History: None Reported - Past Family History Brother(s) Family Medical History: Cancer Additional Family Medical History / Comment(s): Colon CA. Sister(s) Family Medical History: Cancer Medications and Allergies Home Medications Medication Instructions Recorded Confirmed Type Atorvastatin [Lipitor] 40 mg PO HS 07/28/16 07/27/21 History Cholecalciferol [Vitamin D3 (25 50 mcg PO DAILY 07/28/16 07/27/21 History Mcg = 1000 Iu)] Multivitamins, Thera [Multivitamin 1 tab PO DAILY 07/28/16 07/27/21 History (formulary)] [place]-3 Fatty Acids/Fish Oil [Fish 1 cap PO BID 05/07/20 07/27/21 History Oil 1,000 mg Softgel] Allergies Allergy/AdvReac Type Severity Reaction Status Date / Time No Known Allergies Allergy Verified 07/26/21 08:05 Physical Exam Vitals: Vital Signs Temp Pulse Resp BP Pulse Ox 07/28/21 07:42 97.7 F 56 L 18 136/67 100 07/28/21 04:21 97.8 F 61 18 116/47 99 07/27/21 23:29 97.9 F 63 18 125/66 99 07/27/21 20:10 16 07/27/21 20:00 97.9 F 67 16 115/61 100 07/27/21 16:16 97.6 F 07/27/21 15:07 71 17 179/71 98 Intake and Output 07/27/21 07/28/21 07/28/21 22:59 06:59 14:59 Intake Total 125 2100 Balance 125 2100 Intake: Intake, IV Titration 125 1500 Amount Sodium Chloride 0.9% 1, 125 1500 000 ml @ 125 mls/hr IV . [facility] Rx#:[id number] Oral 600 Other: Voiding Method Toilet Toilet # Voids 5 Weight 79.56 kg - Constitutional General appearance: average body habitus, cooperative, no acute distress - EENT dry mucous membranes without Eyes: anicteric sclerae, EOMI, normal appearance ENT: hearing grossly normal, normal oropharynx - Neck Neck: no lymphadenopathy - Respiratory Respiratory: bilateral: CTA - Cardiovascular Rhythm: regular Heart sounds: normal: S1, S2 Abnormal Heart Sounds: no systolic murmur, no diastolic murmur, no rub, no S3 Gallop, no S4 Gallop, no click, no other leg Peripheral Edema: bilateral: None - Gastrointestinal General gastrointestinal: no absent bowel sounds, no decreased bowel sounds, no distended, no hepatomegaly, no hyperactive bowel sounds, normal bowel sounds, no organomegaly, no rigid, no scaphoid, soft, no splenomegaly, no tenderness, no umbilical hernia, no ventral hernia - Integumentary patient has 5 nodules on the bilateral lower extremities, one on the lt upper thigh, largest approx 3 cm. All of the areas are discolored, hard and fixed - Neurologic Neurologic: CNII-XII intact - Musculoskeletal Musculoskeletal: strength equal bilaterally Results CBC & Chem 7: 07/28/21 06:05 07/28/21 06:05 Labs: Abnormal Lab Results - Last 24 Hours (Table) 07/27/21 07/27/21 07/27/21 Range/Units 15:31 15:31 17:31 WBC 3.3 L (3.8-10.6) k/uL RBC 4.14 L (4.30-5.90) m/uL Hgb (13.0-17.5) gm/dL Hct (39.0-53.0) % MCV 101.9 H D (80.0-100.0) fL Plt Count 131 L (150-450) k/uL Lymphocytes # 0.4 L (1.0-4.8) k/uL Sodium 134 L (137-145) mmol/L Glucose 234 H (74-99) mg/dL POC Glucose (mg/dL) 174 H (75-99) mg/dL Lactate Dehydrogenase (313-618) U/L 07/27/21 07/27/21 07/28/21 Range/Units 17:41 20:13 06:05 WBC (3.8-10.6) k/uL RBC 3.58 L (4.30-5.90) m/uL Hgb 11.7 L (13.0-17.5) gm/dL Hct 36.1 L (39.0-53.0) % MCV 101.0 H (80.0-100.0) fL Plt Count 113 L (150-450) k/uL Lymphocytes # 0.5 L (1.0-4.8) k/uL Sodium (137-145) mmol/L Glucose (74-99) mg/dL POC Glucose (mg/dL) 151 H (75-99) mg/dL Lactate Dehydrogenase 775 H (313-618) U/L Thrombosis Risk Factor Assmnt - DVT/VTE Prophylaxis DVT/VTE Prophylaxis: Pharmacologic Prophylaxis ordered - Choose All That Apply Any of the Below Risk Factors Present?: No Other Risk Factors: Yes Each Risk Factor Represents 2 Points: Malignancy Other congenital or acquired thrombophilia - If yes, enter type in comment: No Thrombosis Risk Factor Assessment Total Risk Factor Score: 2 Thrombosis Risk Factor Assessment Level: Low Risk Assessment and Plan (1) DLBCL (diffuse large B cell lymphoma) Current Visit: Yes Status: Acute Code(s): C83.30 - DIFFUSE LARGE B-CELL LYMPHOMA, UNSPECIFIED SITE SNOMED Code(s): 227174580 Plan: Admit for continuous IV infusion ICE. Patient will be admitted for 3 days. orders reviewed. Home medications reconciled. Consult internal medicine for medical management. Supportive care medications ordered. When necessary medications for possible chemotherapy side effects ordered. Labs ordered daily. Daily follow up Frequent ambulation. GCSF Sunday in [facility] F/U labs outpt will be scheduled when seen Sunday in [facility] attests: I seen and examined patient, performed H&P, developed impression and plan of care. Discussed with dictator. Agree with documentation, documented as a scribe
[2021-07-28 12:31] LABS: Glucose,Whole Blood 90 mg/dL (75-99)
[2021-07-28] MEDS: SALT AND SODA MOUTHWASH 1,000 ML PO SCH ×5 (12:54→23:42)
[2021-07-28 17:04] LABS: Glucose,Whole Blood 82 mg/dL (75-99)
[2021-07-28] MEDS: DEXAMETHASONE SOD PHOSPHATE 10 MG/ML 1 ML VIAL IV SCH (17:52)
[2021-07-28] MEDS: FAMOTIDINE 20 MG/2 ML VIAL IV SCH (17:55)
[2021-07-28] MEDS ORDERED: SODIUM CHLORIDE 0.9% IV ONE ×2 (18:00)
[2021-07-28] MEDS ORDERED: MESNA IV ONE (18:00)
[2021-07-28] MEDS ORDERED: [UNRECOGNIZED DRUG - OTHER] IV ONE (18:00)
[2021-07-28] MEDS ORDERED: IFOSFAMIDE IV ONE (18:00)
[2021-07-28] MEDS: ONDANSETRON 16 MG in SODIUM CHLORIDE 0.9% 50 ML IVPB SCH (18:06)
[2021-07-28 20:11] LABS: Glucose,Whole Blood 93 mg/dL (75-99)
[2021-07-28] MEDS: ATORVASTATIN 40 MG TAB PO SCH (20:23)
[2021-07-28] MEDS: ETOPOSIDE IV SCH (20:38)
[2021-07-28] MEDS: SODIUM CHLORIDE 0.9% IV SCH (20:38)
--- NOTE | 2021-07-28 22:25 | P.CONS ---
History of Present Illness - Reason for Consult Consult date: 07/28/21 Medical management - Chief Complaint Diffuse large B cell lymphoma with recurrence on skin nodules - History of Present Illness Patient is a 76-year-old male with a known history of non-Hodgkin's lymphoma last chemotherapy in November 2019, hyperlipidemia, osteoarthritis, heart murmur was admitted to hospital for cycle 1 of chemotherapy. Patient was recently found to have left thigh lesion biopsy showing non-Hodgkin's lymphoma. Completed radiation therapy in April 2021. Patient has been admitted for Cycle One of R-ICE for recurrent DLBCL, recent positive pathology from left thigh. PET scan in June 2021 showed no definite recurrence of disease but multiple skin lesions noted on the lower extremities. Currently patient is sitting in a chair. No complaints of chest pain or short ness of breath. No fever no chills. No cough or sputum production. No dysuria or hematuria. Laboratory data showed WBC 5.2 hemoglobin 11.7 and platelets 113 Lymphocytes 0.5 Sodium 141 potassium 5.2 chloride 109 bicarb is 23.8 BUN 15.1 creatinine 1.1 and blood sugar is 111 calcium 8.4 and LDH 296 liver enzymes are not elevated. Review of Systems Constitutional: Patient denies any fever or chills . No generalized weakness or weight loss. Abdomen: Patient denied nausea vomiting and diarrhea and abdominal pain. Cardiovascular: Patient denies any chest pain or short of breath no palpitations. Respiratory: patient denied any cough or sputum production. No shortness of breath Neurologic: Patient denied any numbness or tingling headache. Musculoskeletal: Patient denies any complaints of joint swelling or deformity. Skin: Negative Psychiatric: Negative Endocrine: No heat or cold intolerance. No recent weight gain. Genitourinary: No dysuria or hematuria. All other 14 point ROS negative except the above Past Medical History Past Medical History: Cancer, Hyperlipidemia, Osteoarthritis (OA) Additional Past Medical History / Comment(s): hx colon polyps, NON HODGKIN'S LYMPHOMA(last chemo tx 12/18/19), leaky heart valve, constipation, finished radiation for "spot on laci legs" 04/26/2021, hx skin cancer History of Any Multi-Drug Resistant Organisms: None Reported Past Surgical History: Cholecystectomy, Joint Replacement Additional Past Surgical History / Comment(s): robotic cholecystectomy and lymph node removal on 07-24-19,COLONOSCOPY. laci hip replacement , PORT A CATH INSERTION 08/07/19/later removed, bone marrow biopsy x 2 Past Anesthesia/Blood Transfusion Reactions: No Reported Reaction Additional Past Anesthesia/Blood Transfusion Reaction / Comm: . Past Psychological History: No Psychological Hx Reported Smoking Status: Former smoker Past Alcohol Use History: None Reported Additional Past Alcohol Use History / Comment(s): Smoked less t< 1 ppd for 3 years, quit at age 25 y.o. Past Drug Use History: None Reported - Past Family History Brother(s) Family Medical History: Cancer Additional Family Medical History / Comment(s): Colon CA. Sister(s) Family Medical History: Cancer Medications and Allergies Home Medications Medication Instructions Recorded Confirmed Type Atorvastatin [Lipitor] 40 mg PO HS 07/28/16 07/27/21 History Cholecalciferol [Vitamin D3 (25 50 mcg PO DAILY 07/28/16 07/27/21 History Mcg = 1000 Iu)] Multivitamins, Thera [Multivitamin 1 tab PO DAILY 07/28/16 07/27/21 History (formulary)] [place]-3 Fatty Acids/Fish Oil [Fish 1 cap PO BID 05/07/20 07/27/21 History Oil 1,000 mg Softgel] Ondansetron [Zofran] 4 mg PO Q4HR PRN #45 tab 07/28/21 Rx Allergies Allergy/AdvReac Type Severity Reaction Status Date / Time No Known Allergies Allergy Verified 07/26/21 08:05 Physical Exam Vitals: Vital Signs Temp Pulse Resp BP Pulse Ox 07/28/21 07:42 97.7 F 56 L 18 136/67 100 07/28/21 04:21 97.8 F 61 18 116/47 99 07/27/21 23:29 97.9 F 63 18 125/66 99 07/27/21 20:10 16 07/27/21 20:00 97.9 F 67 16 115/61 100 07/27/21 16:16 97.6 F 07/27/21 15:07 71 17 179/71 98 Intake and Output 07/27/21 07/28/21 07/28/21 22:59 06:59 14:59 Intake Total 125 2100 Balance 125 2100 Intake: Intake, IV Titration 125 1500 Amount Sodium Chloride 0.9% 1, 125 1500 000 ml @ 125 mls/hr IV . Q8H [facility] Rx#:[id number] Oral 600 Other: Voiding Method Toilet Toilet # Voids 5 Weight 79.56 kg PHYSICAL EXAMINATION: Patient is lying in the bed comfortably, no acute distress, awake alert and oriented.. HEENT: Normocephalic. Neck is supple. Pupils reactive. Nostrils clear. Oral cavity is moist. Neck reveals no JVD, carotid bruits, or thyromegaly. CHEST EXAMINATION: Trachea is central. Symmetrical expansion. Lung alfaro clear to auscultation and percussion. CARDIAC: Normal S1, S2 with no gallops. + murmur ABDOMEN: Soft. Bowel sounds normal. No organomegaly. No abdominal bruits. Extremities: reveal no edema. No clubbing or cyanosis Neurologically awake, alert, oriented x3 with well-coordinated movements. No focal deficits noted Skin: No rash or skin lesions. Patient does have skin nodules on the left lower extremity Psychiatric: Cooperative. Nonsuicidal Musculoskeletal: No joint swelling or deformity. Normal range of motion. Results CBC & Chem 7: 07/28/21 06:05 07/28/21 06:05 Labs: Abnormal Lab Results - Last 24 Hours (Table) 07/27/21 07/27/21 07/27/21 Range/Units 15:31 15:31 17:31 WBC 3.3 L (3.8-10.6) k/uL RBC 4.14 L (4.30-5.90) m/uL Hgb (13.0-17.5) gm/dL Hct (39.0-53.0) % MCV 101.9 H D (80.0-100.0) fL Plt Count 131 L (150-450) k/uL Lymphocytes # 0.4 L (1.0-4.8) k/uL Sodium 134 L (137-145) mmol/L Anion Gap (10.00-18.00) mmol/L Glucose 234 H (74-99) mg/dL POC Glucose (mg/dL) 174 H (75-99) mg/dL Calcium (8.7-10.3) mg/dL Lactate Dehydrogenase (313-618) U/L Total Protein (6.2-8.2) g/dL Albumin (3.8-4.9) g/dL Globulin (1.6-3.3) g/dL 07/27/21 07/27/2121 Range/Units 17:41 20:13 06:05 WBC (3.8-10.6) k/uL RBC 3.58 L (4.30-5.90) m/uL Hgb 11.7 L (13.0-17.5) gm/dL Hct 36.1 L (39.0-53.0) % MCV 101.0 H (80.0-100.0) fL Plt Count 113 L (150-450) k/uL Lymphocytes # 0.5 L (1.0-4.8) k/uL Sodium (137-145) mmol/L Anion Gap (10.00-18.00) mmol/L Glucose (74-99) mg/dL POC Glucose (mg/dL) 151 H (75-99) mg/dL Calcium (8.7-10.3) mg/dL Lactate Dehydrogenase 775 H (313-618) U/L Total Protein (6.2-8.2) g/dL Albumin (3.8-4.9) g/dL Globulin (1.6-3.3) g/dL 07/28/21 Range/Units 06:05 WBC (3.8-10.6) k/uL RBC (4.30-5.90) m/uL Hgb (13.0-17.5) gm/dL Hct (39.0-53.0) % MCV (80.0-100.0) fL Plt Count (150-450) k/uL Lymphocytes # (1.0-4.8) k/uL Sodium (137-145) mmol/L Anion Gap 8.20 L (10.00-18.00) mmol/L Glucose 111 H (74-99) mg/dL POC Glucose (mg/dL) (75-99) mg/dL Calcium 8.4 L (8.7-10.3) mg/dL Lactate Dehydrogenase 296 H (313-618) U/L Total Protein 5.2 L (6.2-8.2) g/dL Albumin 3.7 L (3.8-4.9) g/dL Globulin 1.5 L (1.6-3.3) g/dL Assessment and Plan Assessment: Diffuse large B cell lymphoma with recurrence on skin nodules left thigh with positive pathology in June 2021 status post radiation and currently admitted for cycle 1 of chemotherapy. Hyperlipidemia Osteoarthritis Previous history of smoking DVT prophylaxis with early ambulation due to thrombocytopenia Plan: Patient will be continued on IV hydration and started on chemotherapy as per oncology plan.. Follow-up CBC, BMP and LDH. Transfuse if hemoglobin less than 7 and platelets less than 10,000. Continue with home medications atorvastatin and symptomatic management for nausea. We will follow closely and further recommendations based on clinical course. Thank you for your consult.
[2021-07-29] MEDS: SODIUM CHLORIDE 0.9% 1,000 ML IV SCH ×3 (04:17→19:44)
[2021-07-29] MEDS: SALT AND SODA MOUTHWASH 1,000 ML PO SCH ×5 (05:25→23:32)
[2021-07-29 05:32] LABS: Basophils % (A) 0 %; Eosinophils % (A) 0 %; HCT 33.9 % (39.0-53.0); HGB 11.2 gm/dL (13.0-17.5); Lymphocytes # (A) 0.3 k/uL (1.0-4.8); Lymphocytes % (A) 7 %; MCH 33.5 pg (25.0-35.0); MCHC 32.9 g/dL (31.0-37.0); MCV 101.7 fL (80.0-100.0); Macrocytosis Slight; Mean Platelet Volume 7.8; Monocytes # (A) 0.1 k/uL (0-1.0); Monocytes % (A) 3 %; Neutrophils # (A) 4.1 k/uL (1.3-7.7); Neutrophils % (A) 88 %; Platelet Count 101 k/uL (150-450); RBC 3.34 m/uL (4.30-5.90); RDW 13.9 % (11.5-15.5); WBC 4.7 k/uL (3.8-10.6)
[2021-07-29 06:13] LABS: ALT 24 U/L (4-49); AST 27 U/L (17-59); African American GFR (CKD) 72 (>60 ml/min/1.73 sqM); Albumin 2.9 g/dL (3.5-5.0); Albumin/Globulin Ratio 1.4; Alkaline Phosphatase 74 U/L (38-126); Anion Gap 9 mmol/L; Blood Urea Nitrogen 22 mg/dL (9-20); Carbon Dioxide 19 mmol/L (22-30); Chloride 109 mmol/L (98-107); Globulin 2.1 g/dL; Glucose 114 mg/dL (74-99); Non-African American GFR(CKD) 62 (>60 ml/min/1.73 sqM); Phosphorus 3.5 mg/dL (2.5-4.5); Potassium 4.7 mmol/L (3.5-5.1); Sodium 137 mmol/L (137-145); Total Bilirubin 0.2 mg/dL (0.2-1.3)
[2021-07-29 06:30] LABS: Uric Acid 5.5 mg/dL (3.5-8.5)
[2021-07-29 07:47] LABS: Glucose,Whole Blood 100 mg/dL (75-99)
[2021-07-29] MEDS: CHOLECALCIFEROL 25 MCG (1000 IU) TABLET PO SCH (08:01)
[2021-07-29] MEDS: SENNOSIDES-DOCUSATE SODIUM 1 EACH TAB PO SCH ×2 (08:01→20:37)
[2021-07-29] MEDS: MULTIVITAMINS, THERA 1 EACH TAB PO SCH (08:01)
[2021-07-29 12:30] LABS: Glucose,Whole Blood 112 mg/dL (75-99)
[2021-07-29 12:30] LABS: LDH 263 U/L (120-246)
--- NOTE | 2021-07-29 14:51 | P.PN ---
Subjective Progress Note Date: 07/29/21 The patient had nausea and vomiting today after breakfast. He has been feeling better since. He states that he did not want to try lunch, but nausea has improved significantly. No fever or chills. He denied any diarrhea. Objective - Vital Signs Vital signs: Vital Signs Temp 97.6 F 07/29/21 12:11 Pulse 58 L 07/29/21 12:11 Resp 16 07/29/21 12:11 BP 138/62 07/29/21 12:11 Pulse Ox 98 07/29/21 12:11 Intake & Output 07/28/21 07/29/21 07/29/21 18:59 06:59 18:59 Intake Total 1250 2750 Balance 1250 2750 Intake: Intake, IV Titration 2250 Amount CARBOplatin 430 mg In 250 Sodium Chloride 0.9% 250 ml @ 390.667 mls/hr IV ONCE ONE Rx#:[id number] [place] 10,000 mg In Sodium 500 Chloride 0.9% 500 ml 400 ml In Empty Bag 1 bag @ 20.833 mls/hr IV ONCE ONE Rx#:[id number] Sodium Chloride 0.9% 1, 1500 000 ml @ 125 mls/hr IV . Q8H [facility] Rx#:[id number] Oral 1250 500 Other: Voiding Method Toilet Toilet Toilet # Voids 3 6 1 - Constitutional General appearance: Present: no acute distress - EENT Eyes: Present: EOMI ENT: Present: hearing grossly normal, normal oropharynx - Neck Thyroid: bilateral: normal size - Respiratory Respiratory: bilateral: CTA - Cardiovascular Rhythm: regular Heart sounds: normal: S1, S2 - Gastrointestinal General gastrointestinal: Present: normal bowel sounds, soft - Integumentary Integumentary Comment(s): Lymphoma skin lesions on lower extremities, stable - Neurologic Neurologic: Present: CNII-XII intact - Musculoskeletal Musculoskeletal: Present: strength equal bilaterally - Psychiatric Psychiatric: Present: A&O x's 3, appropriate affect - Labs CBC & Chem 7: 07/29/21 04:46 07/29/21 04:46 Labs: Abnormal Lab Results - Last 24 Hours (Table) 07/29/21 07/29/21 07/29/21 Range/Units 04:46 04:46 07:46 RBC 3.34 L (4.30-5.90) m/uL Hgb 11.2 L (13.0-17.5) gm/dL Hct 33.9 L (39.0-53.0) % MCV 101.7 H (80.0-100.0) fL Plt Count 101 L (150-450) k/uL Lymphocytes # 0.3 L (1.0-4.8) k/uL Chloride 109 H (98-107) mmol/L Carbon Dioxide 19 L (22-30) mmol/L BUN 22 H (9-20) mg/dL Glucose 114 H (74-99) mg/dL POC Glucose (mg/dL) 100 H (75-99) mg/dL Calcium 8.0 L (8.4-10.2) mg/dL Lactate Dehydrogenase 263 H (120-246) U/L Total Protein 5.0 L (6.3-8.2) g/dL Albumin 2.9 L (3.5-5.0) g/dL 07/29/21 Range/Units 12:10 RBC (4.30-5.90) m/uL Hgb (13.0-17.5) gm/dL Hct (39.0-53.0) % MCV (80.0-100.0) fL Plt Count (150-450) k/uL Lymphocytes # (1.0-4.8) k/uL Chloride (98-107) mmol/L Carbon Dioxide (22-30) mmol/L BUN (9-20) mg/dL Glucose (74-99) mg/dL POC Glucose (mg/dL) 112 H (75-99) mg/dL Calcium (8.4-10.2) mg/dL Lactate Dehydrogenase (120-246) U/L Total Protein (6.3-8.2) g/dL Albumin (3.5-5.0) g/dL Assessment and Plan (1) DLBCL (diffuse large B cell lymphoma) Narrative/Plan: The patient has recurrent disease, and is currently admitted for salvage, high dose infusional chemotherapy with ICE. He is on day #3 of treatment. He had some nausea and vomiting earlier today, which he feels was specifically due to what he ate. Otherwise he has been tolerating treatment reasonably well. Labs were reviewed showing no significant abnormality. Continue treatment per protocol. The patient wanted with physical exam, and labs which have been ordered Current Visit: Yes Status: Acute Code(s): C83.30 - DIFFUSE LARGE B-CELL LYMPHOMA, UNSPECIFIED SITE SNOMED Code(s): 845922852 Plan: Internal medicine is following for medical management. We discussed supportive care measures. He was advised that anti-emetics IV are ordered when necessary and he should be aggressive in using those.
[2021-07-29 16:59] LABS: Glucose,Whole Blood 107 mg/dL (75-99)
[2021-07-29] MEDS: ATORVASTATIN 40 MG TAB PO SCH (20:37)
[2021-07-29] MEDS: DEXAMETHASONE SOD PHOSPHATE 10 MG/ML 1 ML VIAL IV SCH (20:38)
[2021-07-29] MEDS: ONDANSETRON 16 MG in SODIUM CHLORIDE 0.9% 50 ML IVPB SCH (20:38)
[2021-07-29] MEDS: FAMOTIDINE 20 MG/2 ML VIAL IV SCH (20:38)
[2021-07-29 21:01] LABS: Glucose,Whole Blood 107 mg/dL (75-99)
--- NOTE | 2021-07-29 21:23 | P.PN ---
Subjective Patient is a 76-year-old male with a known history of non-Hodgkin's lymphoma last chemotherapy in November 2019, hyperlipidemia, osteoarthritis, heart murmur was admitted to hospital for cycle 1 of chemotherapy. Patient was recently found to have left thigh lesion biopsy showing non-Hodgkin's lymphoma. Completed radiation therapy in April 2021. Patient has been admitted for Cycle One of R-ICE for recurrent DLBCL, recent positive pathology from left thigh. PET scan in June 2021 showed no definite recurrence of disease but multiple skin lesions noted on the lower extremities. Currently patient is sitting in a chair. No complaints of chest pain or shortness of breath. No fever no chills. No cough or sputum production. No dysuria or hematuria. Laboratory data showed WBC 5.2 hemoglobin 11.7 and platelets 113 Lymphocytes 0.5 Sodium 141 potassium 5.2 chloride 109 bicarb is 23.8 BUN 15.1 creatinine 1.1 and blood sugar is 111 calcium 8.4 and LDH 296 liver enzymes are not elevated. 07/29/2021 Patient with non-Hodgkin lymphoma, originally diagnosed about one year ago on both inguinal lymphadenopathy. Recently started having cutaneous nodules on both sides of his legs and thighs, about 3-5 in number on each side about 1 cm o r larger or smaller in diameter. He had recent biopsy as an outpatient with his oncologist and results showing non-Hodgkin's lymphoma. So it was planned to be admitted and get chemotherapy over the weekend with possible transfer to [facility] and [place] for possible stem cell transplant in 2-3 weeks as per patient Today he is awake and alert and is doing well. He denies any specific comp laints. He is getting his chemotherapy intravenously with oncologist/legal secretary team on the case. He remains on normal saline IV fluids. looks stable with hemoglobin 11.7, platelets 101. Creatinine 1.1 He was able to eat 5-100% of his meals Objective - Vital Signs Vital signs: Vital Signs Temp 98.3 F 07/29/21 07:45 Pulse 78 07/29/21 07:45 Resp 16 07/29/21 07:45 BP 142/47 07/29/21 07:45 Pulse Ox 98 07/29/21 07:45 Intake & Output 07/28/21 07/29/21 07/29/21 18:59 06:59 18:59 Intake Total 1250 2750 Balance 1250 2750 Intake: Intake, IV Titration 2250 Amount CARBOplatin 430 mg In 250 Sodium Chloride 0.9% 250 ml @ 390.667 mls/hr IV ONCE ONE Rx#:[id number] [place] 10,000 mg In Sodium 500 Chloride 0.9% 500 ml 400 ml In Empty Bag 1 bag @ 20.833 mls/hr IV ONCE ONE Rx#:[id number] Sodium Chloride 0.9% 1, 1500 000 ml @ 125 mls/hr IV . Q8H [facility] Rx#:[id number] Oral 1250 500 Other: Voiding Method Toilet Toilet Toilet # Voids 3 6 1 - Exam GENERAL: The patient is alert and oriented x3, not in any acute distress. Well developed, well nourished. HEENT: Pupils are round and equally reacting to light. EOMI. No scleral icterus. No conjunctival pallor. Normocephalic, atraumatic. No pharyngeal erythema. No thyromegaly. CARDIOVASCULAR: S1 and S2 present. No murmurs, rubs, or gallops. PULMONARY: Chest is clear to auscultation, no wheezing or crackles. ABDOMEN: Soft, nontender, nondistended, normoactive bowel sounds. No palpable organomegaly. MUSCULOSKELETAL: No joint swelling or deformity. EXTREMITIES: No cyanosis, clubbing, or pedal edema. NEUROLOGICAL: Gross neurological examination did not reveal any focal deficits. -SKIN: No rashes. no petechiae. Few erythematous skin nodules on each leg about 1 cm, about 4-5 on each side - Labs CBC & Chem 7: 07/29/21 04:46 07/29/21 04:46 Labs: Abnormal Lab Results - Last 24 Hours (Table) 07/29/21 07/29/21 07/29/21 Range/Units 04:46 04:46 07:46 RBC 3.34 L (4.30-5.90) m/uL Hgb 11.2 L (13.0-17.5) gm/dL Hct 33.9 L (39.0-53.0) % MCV 101.7 H (80.0-100.0) fL Plt Count 101 L (150-450) k/uL Lymphocytes # 0.3 L (1.0-4.8) k/uL Chloride 109 H (98-107) mmol/L Carbon Dioxide 19 L (22-30) mmol/L BUN 22 H (9-20) mg/dL Glucose 114 H (74-99) mg/dL POC Glucose (mg/dL) 100 H (75-99) mg/dL Calcium 8.0 L (8.4-10.2) mg/dL Lactate Dehydrogenase 263 H (120-246) U/L Total Protein 5.0 L (6.3-8.2) g/dL Albumin 2.9 L (3.5-5.0) g/dL 07/29/21 Range/Units 12:10 RBC (4.30-5.90) m/uL Hgb (13.0-17.5) gm/dL Hct (39.0-53.0) % MCV (80.0-100.0) fL Plt Count (150-450) k/uL Lymphocytes # (1.0-4.8) k/uL Chloride (98-107) mmol/L Carbon Dioxide (22-30) mmol/L BUN (9-20) mg/dL Glucose (74-99) mg/dL POC Glucose (mg/dL) 112 H (75-99) mg/dL Calcium (8.4-10.2) mg/dL Lactate Dehydrogenase (120-246) U/L Total Protein (6.3-8.2) g/dL Albumin (3.5-5.0) g/dL Assessment and Plan Assessment: 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 Hyperlipidemia Osteoarthritis Previous history of smoking DVT prophylaxis with early ambulation due to thrombocytopenia Plan: This is a pleasant 76 years old male who presents with skin nodule secondary to non-Hodgkin's lymphoma Continue with chemotherapy per hematology oncology team Continue with IV hydration Keep monitoring closely Labs and medication were reviewed.. Continue same treatment. Continue with symptomatic treatment. Resume home medication. Monitor lytes and vitals. DVT and GI prophylaxis. Further recommendations as per clinical course of the patient DVT prophylaxis: Subcutaneous heparin GI Prophylaxis: Pepcid Prognosis is guarded
[2021-07-29] MEDS: SODIUM CHLORIDE 0.9% IV SCH (22:20)
[2021-07-29] MEDS: ETOPOSIDE IV SCH (22:20)
[2021-07-29 22:26] VITALS: RESP 18
[2021-07-30 03:33] VITALS: TEMP 98.1
[2021-07-30] MEDS: SODIUM CHLORIDE 0.9% 1,000 ML IV SCH ×2 (04:10→12:25)
[2021-07-30 04:15] VITALS: BP 153/75; PULSE 68
[2021-07-30] MEDS: SALT AND SODA MOUTHWASH 1,000 ML PO SCH ×2 (05:15→12:26)
[2021-07-30 06:38] LABS: Basophils % (A) 0 %; Eosinophils % (A) 0 %; HCT 35.2 % (39.0-53.0); HGB 11.4 gm/dL (13.0-17.5); Hypochromasia Slight; Lymphocytes # (A) 0.2 k/uL (1.0-4.8); Lymphocytes % (A) 4 %; MCHC 32.3 g/dL (31.0-37.0); MCV 102.4 fL (80.0-100.0); Macrocytosis Slight; Mean Platelet Volume 7.9; Monocytes # (A) 0.1 k/uL (0-1.0); Monocytes % (A) 2 %; Neutrophils % (A) 92 %; RBC 3.44 m/uL (4.30-5.90); WBC 4.4 k/uL (3.8-10.6)
[2021-07-30 07:02] LABS: Platelet Count 90 k/uL (150-450)
[2021-07-30 07:38] LABS: Glucose,Whole Blood 85 mg/dL (75-99)
[2021-07-30] MEDS: CHOLECALCIFEROL 25 MCG (1000 IU) TABLET PO SCH (08:31)
[2021-07-30] MEDS: SENNOSIDES-DOCUSATE SODIUM 1 EACH TAB PO SCH (08:32)
[2021-07-30] MEDS: MULTIVITAMINS, THERA 1 EACH TAB PO SCH (08:32)
[2021-07-30] MEDS ORDERED: HEPARIN SODIUM,PORCINE/PF 5,000 UNIT/0.5 ML SYRINGE SQ SCH (09:00)
[2021-07-30 09:41] LABS: African American GFR (CKD) 82.6 (60.0-200.0); Anion Gap 10.4 mmol/L (10.00-18.00); BUN/Creat Ratio 15.15 Ratio (12.00-20.00); Blood Urea Nitrogen 15.6 mg/dL (9.0-27.0); Calcium 8.3 mg/dL (8.7-10.3); Carbon Dioxide 22.2 mmol/L (20.0-27.5); Magnesium 2.1 mg/dL (1.5-2.4); Non-African American GFR(CKD) 71.2 (60.0-200.0); Potassium 5.1 mmol/L (3.5-5.5)
[2021-07-30 12:31] LABS: Glucose,Whole Blood 96 mg/dL (75-99)
--- NOTE | 2021-07-30 12:55 | P.DS ---
Providers Date of admission: 07/27/21 14:55 Expected date of discharge: 07/30/21 Attending physician: Jin Sexton Consults: 07/27/21 16:30 Consult Physician Routine Consulting Provider: Yuri Valentine Consult Reason/Comments: medical management, admit for timed chemo Do you want consulting provider notified?: Yes Primary care physician: Yuri Valentine - Discharge Diagnosis(es) (1) DLBCL (diffuse large B cell lymphoma) Current Visit: Yes Status: Acute Hospital Course: Patient is a 76-year-old white male initially diagnosed with diffuse large B- cell lymphoma in December 2018, achieving complete remission with standard R-CHOP. He then developed skin recurrence, localized to the right bergeron in 03/09, treated with radiation. He then developed recurrence again with multiple lesions involving the skin of the lower extremities. He was therefore admitted for salvage chemotherapy with the R-ICE regimen, cycle #1 - The patient received chemotherapy per protocol. 100 with physical exams and labs. No significant lab abnormalities about. He did have problems with nausea with intermittent vomiting on day #3, which been improved spontaneously. He was able to tolerate his diet well on the day of discharge. It was therefore decided to discharge him after completion of chemotherapy Assessment: WNL Procedures: High dose infusional chemotherapy Patient Condition at Discharge: Fair Plan - Discharge Summary Discharge Rx Participant: No New Discharge Prescriptions: New Ondansetron [Zofran] 4 mg PO Q4HR PRN #45 tab PRN Reason: Nausea No Action Atorvastatin [Lipitor] 40 mg PO HS Cholecalciferol [Vitamin D3 (25 Mcg = 1000 Iu)] 50 mcg PO DAILY Multivitamins, Thera [Multivitamin (formulary)] 1 tab PO DAILY [place]-3 Fatty Acids/Fish Oil [Fish Oil 1,000 mg Softgel] 1 cap PO BID Discharge Medication List Atorvastatin [Lipitor] 40 mg PO HS 07/28/16 [History] Cholecalciferol [Vitamin D3 (25 Mcg = 1000 Iu)] 50 mcg PO DAILY 07/28/16 [History] Multivitamins, Thera [Multivitamin (formulary)] 1 tab PO DAILY 07/28/16 [History] [place]-3 Fatty Acids/Fish Oil [Fish Oil 1,000 mg Softgel] 1 cap PO BID 05/07/20 [History] Ondansetron [Zofran] 4 mg PO Q4HR PRN #45 tab 07/28/21 [Rx] Follow up Appointment(s)/Referral(s): Jin Sexton MD [STAFF PHYSICIAN] - 08/01/21 2:00 pm (This is for GCSF injection. Need to make additional f/u appts at that time) Activity/Diet/Wound Care/Special Instructions: Diet as tolerated-liberal fluids, protein Activity as tolerated-encouraged Discharge Disposition: HOME SELF-CARE
--- NOTE | 2021-07-30 22:05 | P.PN ---
Subjective Patient is a 76-year-old male with a known history of non-Hodgkin's lymphoma last chemotherapy in November 2019, hyperlipidemia, osteoarthritis, heart murmur was admitted to hospital for cycle 1 of chemotherapy. Patient was recently found to have left thigh lesion biopsy showing non-Hodgkin's lymphoma. Completed radiation therapy in April 2021. Patient has been admitted for Cycle One of R-ICE for recurrent DLBCL, recent positive pathology from left thigh. PET scan in June 2021 showed no definite recurrence of disease but multiple skin lesions noted on the lower extremities. Currently patient is sitting in a chair. No complaints of chest pain or shortness of breath. No fever no chills. No cough or sputum production. No dysuria or hematuria. Laboratory data showed WBC 5.2 hemoglobin 11.7 and platelets 113 Lymphocytes 0.5 Sodium 141 potassium 5.2 chloride 109 bicarb is 23.8 BUN 15.1 creatinine 1.1 and blood sugar is 111 calcium 8.4 and LDH 296 liver enzymes are not elevated. 07/29/2021 Patient with non-Hodgkin lymphoma, originally diagnosed about one year ago on both inguinal lymphadenopathy. Recently started having cutaneous nodules on both sides of his legs and thighs, about 3-5 in number on each side about 1 cm o r larger or smaller in diameter. He had recent biopsy as an outpatient with his oncologist and results showing non-Hodgkin's lymphoma. So it was planned to be admitted and get chemotherapy over the weekend with possible transfer to [facility] and [place] for possible stem cell transplant in 2-3 weeks as per patient Today he is awake and alert and is doing well. He denies any specific comp laints. He is getting his chemotherapy intravenously with oncologist/ambulatory care coordinator team on the case. He remains on normal saline IV fluids. looks stable with hemoglobin 11.7, platelets 101. Creatinine 1.1 He was able to eat 5-100% of his meals 07/30/2021 Patient is awake and alert, he finished his chemotherapy today and he is doing well and he wants to be discharged Patient have some nausea vomiting this morning but he states that's been controlled and he was able to tolerate a torsed this morning, he wanted to keep diet as regular. No abdominal pain. No diarrhea. No chest pain or dyspnea. No coughing. No weakness or headache. No other complaint. He still has the plastic nodules on his leg skin Hemodynamically stable. BMP is unremarkable. CBC is stable with hemoglobin 11.4 and platelets are 19. Glucose controlled 85 and 96. He looks medically stable. Objective - Vital Signs Vital signs: Vital Signs Temp 98.1 F 07/30/21 04:15 Pulse 68 07/30/21 04:15 Resp 18 07/30/21 04:15 BP 153/75 07/30/21 04:15 Pulse Ox 98 07/30/21 04:15 Intake & Output 07/29/21 07/30/21 07/30/21 18:59 06:59 18:59 Intake Total 1500 2650 Balance 1500 2650 Intake: Intake, IV Titration 1500 2050 Amount Etoposide 200 mg In 500 Sodium Chloride 0.9% ( Dehp [place] 500 ml @ 510 mls /hr IV Q24H [facility] Rx#: [id number] Ondansetron 16 mg In 50 Sodium Chloride 0.9% 50 ml @ 232 mls/hr IVPB Q24H [facility] Rx#:[id number] Sodium Chloride 0.9% 1, 1500 1500 000 ml @ 125 mls/hr IV . Q8H [facility] Rx#:[id number] Oral 600 Other: Voiding Method Toilet Toilet Toilet # Voids 1 5 - Exam GENERAL: The patient is alert and oriented x3, not in any acute distress. Well developed, well nourished. HEENT: Pupils are round and equally reacting to light. EOMI. No scleral icterus. No conjunctival pallor. Normocephalic, atraumatic. No pharyngeal erythema. No thyromegaly. CARDIOVASCULAR: S1 and S2 present. No murmurs, rubs, or gallops. PULMONARY: Chest is clear to auscultation, no wheezing or crackles. ABDOMEN: Soft, nontender, nondistended, normoactive bowel sounds. No palpable organomegaly. MUSCULOSKELETAL: No joint swelling or deformity. EXTREMITIES: No cyanosis, clubbing, or pedal edema. NEUROLOGICAL: Gross neurological examination did not reveal any focal deficits. -SKIN: No rashes. no petechiae. Few erythematous skin nodules on each leg about 1 cm, about 4-5 on each side - Labs CBC & Chem 7: 07/30/21 05:36 07/30/21 05:36 Labs: Abnormal Lab Results - Last 24 Hours (Table) 1207/29/21 07/29/21 Range/Units 04:46 12:10 16:58 RBC (4.30-5.90) m/uL Hgb (13.0-17.5) gm/dL Hct (39.0-53.0) % MCV (80.0-100.0) fL Plt Count (150-450) k/uL Lymphocytes # (1.0-4.8) k/uL POC Glucose (mg/dL) 112 H 107 H (75-99) mg/dL Calcium (8.7-10.3) mg/dL Lactate Dehydrogenase 263 H (120-246) U/L 07/29/21 07/30/21 07/30/21 Range/Units 20:58 05:36 05:36 RBC 3.44 L (4.30-5.90) m/uL Hgb 11.4 L (13.0-17.5) gm/dL Hct 35.2 L (39.0-53.0) % MCV 102.4 H (80.0-100.0) fL Plt Count 90 L (150-450) k/uL Lymphocytes # 0.2 L (1.0-4.8) k/uL POC Glucose (mg/dL) 107 H (75-99) mg/dL Calcium 8.3 L (8.7-10.3) mg/dL Lactate Dehydrogenase (120-246) U/L Assessment and Plan Assessment: 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 Hyperlipidemia Osteoarthritis Previous history of smoking DVT prophylaxis with early ambulation due to thrombocytopenia Plan: This is a pleasant 76 years old male who presents with skin nodule secondary to non-Hodgkin's lymphoma Patient finish his chemotherapy per hematology oncology team Continue with IV hydration advance diet as tolerated Patient is a stable Labs and medication were reviewed.. Continue same treatment. Continue with symptomatic treatment. Resume home medication. Monitor lytes and vitals. DVT and GI prophylaxis. Further recommendations as per clinical course of the patient DVT prophylaxis: Subcutaneous heparin GI Prophylaxis: Pepcid Patient was instructed to follow up with his PCP and oncologist Dr. eSxton in one week and he agrees
== END 2021-07-30 14:10 | disposition home or self-care (01) | DRG 847 ==
LOC: 5NMEDONC 14:55
PROVIDERS: ADMIT Internal Medicine Hematology & Oncology; ATTEND Internal Medicine Hematology & Oncology
DX: Z51.11 Encounter for antineoplastic chemotherapy (principal); C83.38 Diffuse large B-cell lymphoma, lymph nodes of multiple sites; D69.6 Thrombocytopenia, unspecified; Z20.822 Contact with and (suspected) exposure to COVID-19; E78.5 Hyperlipidemia, unspecified; K59.00 Constipation, unspecified; M19.90 Unspecified osteoarthritis, unspecified site; Z79.899 Other long term (current) drug therapy; Z86.010 Personal history of colon polyps; Z92.3 Personal history of irradiation; Z90.49 Acquired absence of other specified parts of digestive tract; Z87.891 Personal history of nicotine dependence; Z96.643 Presence of artificial hip joint, bilateral; Z98.890 Other specified postprocedural states; Z80.0 Family history of malignant neoplasm of digestive organs
CPT/HCPCS: 80048; 80053; 81003; 82607; 82746; 83615; 83735; 83921; 84100; 84550; 85025; 85045; 85610; 85730; 87635

== ENCOUNTER 2021-09-06 08:54 | Inpatient (IN) | payer MEDICARE ==
[2021-09-06] MEDS ORDERED: ONDANSETRON 4 MG/2 ML VIAL IVP PRN (11:30)
[2021-09-06] MEDS ORDERED: SODIUM CHLORIDE 0.9% 1,000 ML IV SCH (11:30)
[2021-09-06] MEDS ORDERED: ONDANSETRON 16 MG in SODIUM CHLORIDE 0.9% 50 ML IVPB SCH (12:00)
[2021-09-06] MEDS ORDERED: ETOPOSIDE 200 MG in SODIUM CHLORIDE 0.9% 500 ML 500 ML IV SCH (13:00)
[2021-09-13] MEDS ORDERED: ONDANSETRON 4 MG/2 ML VIAL IVP PRN (11:30)
[2021-09-13 13:32] LABS: Anisocytosis Slight; Basophils % (A) 0 %; Eosinophils % (A) 0 %; HCT 30.3 % (39.0-53.0); HGB 9.7 gm/dL (13.0-17.5); Lymphocytes # (A) 0.3 k/uL (1.0-4.8); Lymphocytes % (A) 3 %; MCH 32.2 pg (25.0-35.0); MCHC 32.1 g/dL (31.0-37.0); MCV 100.2 fL (80.0-100.0); Macrocytosis Slight; Monocytes # (A) 0.2 k/uL (0-1.0); Monocytes % (A) 2 %; Neutrophils # (A) 9.9 k/uL (1.3-7.7); Neutrophils % (A) 95 %; Platelet Count 220 k/uL (150-450); RBC 3.02 m/uL (4.30-5.90); RDW 16.4 % (11.5-15.5); WBC 10.5 k/uL (3.8-10.6)
[2021-09-13 13:51] LABS: ALT 20 U/L (4-49); AST 26 U/L (17-59); African American GFR (CKD) 61 (>60 ml/min/1.73 sqM); Albumin/Globulin Ratio 1.7; Alkaline Phosphatase 126 U/L (38-126); Anion Gap 8 mmol/L; Blood Urea Nitrogen 16 mg/dL (9-20); Calcium 8.9 mg/dL (8.4-10.2); Carbon Dioxide 22 mmol/L (22-30); Chloride 106 mmol/L (98-107); Globulin 2.3 g/dL; Glucose 125 mg/dL (74-99); Non-African American GFR(CKD) 53 (>60 ml/min/1.73 sqM); Phosphorus 3.4 mg/dL (2.5-4.5); Potassium 4.5 mmol/L (3.5-5.1); Sodium 136 mmol/L (137-145); Total Bilirubin 0.4 mg/dL (0.2-1.3); Total Protein 6.3 g/dL (6.3-8.2); Uric Acid 4.1 mg/dL (3.5-8.5)
[2021-09-13] MEDS: ONDANSETRON 16 MG in SODIUM CHLORIDE 0.9% 50 ML IVPB SCH (14:06)
[2021-09-13] MEDS: SODIUM CHLORIDE 0.9% 1,000 ML IV SCH ×2 (14:07→22:42)
[2021-09-13] MEDS: ETOPOSIDE 200 MG in SODIUM CHLORIDE 0.9% 500 ML 500 ML IV SCH (15:12)
--- NOTE | 2021-09-13 17:43 | P.HPIM ---
History of Present Illness H&P Date: 09/13/21 Chief Complaint: Admit for CIVI ICE (R given in ofc) for DLBCL Mr Leon is a very pleasant male patient of Dr. Sexton, he initially presented to his PCP Dr. Ana Valentine with a painless left inguinal lump since at least 2018, and it had not changed much. CT revealed suspicious intrapelvic/abdominal lymphadenopathy as well as left inguinal lymphadenopathy. Excisional lymph node biopsy 07/24/[address] Lynch along with a lap cholystectomy, pathology revealed B-cell large cell lymphoma with high-grade features. Patient denied any constitutional symptoms. Staging PET scan positive for disease above and below the diaphragm, bone marrow positive for involvement with DLBL. Stage IV A. MYC rearrangement negative. patient was started on RCHOP. PET scan after 3 cycles showed a complete response. he had 4 cycles total. Did well until February 2021. He had a lesion on the right bergeron bone, this was biopsied and showed large B-cell lymphoma. he completed radiation to the right leg. Patient had no constitutional symptoms. PET scan June 2020 no definite recurrent disease. Patient did have some skin lesions on the lower extremities. Biopsy of a left thigh lesion, recurrent DLBL similar to the initial lymphoma diagnosed. Patient is now receiving R-ICE with Rituxan being given in the office prior to admission for continuous IV infusion ICE. He is admitted for cycle 3. On admit patient has no complaints on a 14 point review of systems. He is fully ambulatory. His appetite is fair to good. Review of Systems 10 point ROS is neg except as stated in HPI Past Medical History Past Medical History: Cancer, Hyperlipidemia, Osteoarthritis (OA) Additional Past Medical History / Comment(s): hx colon polyps, NON HODGKIN'S LYMPHOMA(last chemo tx 12/18/19), leaky heart valve, constipation, finished radiation for "spot on laci legs" 04/26/2021, hx skin cancer History of Any Multi-Drug Resistant Organisms: None Reported Past Surgical History: Cholecystectomy, Joint Replacement Additional Past Surgical History / Comment(s): robotic cholecystectomy and lymph node removal on 07-24-19,COLONOSCOPY. laci hip replacement , PORT A CATH INSERTION 08/07/19/later removed, bone marrow biopsy x 2 Past Anesthesia/Blood Transfusion Reactions: No Reported Reaction Additional Past Anesthesia/Blood Transfusion Reaction / Comment(s): . Past Psychological History: No Psychological Hx Reported Smoking Status: Former smoker Past Alcohol Use History: None Reported Additional Past Alcohol Use History / Comment(s): Smoked less t< 1 ppd for 3 years, quit at age 25 y.o. Past Drug Use History: None Reported - Past Family History Brother(s) Family Medical History: Cancer Additional Family Medical History / Comment(s): Colon CA. Sister(s) Family Medical History: Cancer Medications and Allergies Home Medications Medication Instructions Recorded Confirmed Type Atorvastatin [Lipitor] 40 mg PO HS 07/28/16 09/13/21 History Cholecalciferol [Vitamin D3 (25 50 mcg PO DAILY 07/28/16 09/13/21 History Mcg = 1000 Iu)] Ondansetron [Zofran] 4 mg PO Q4H PRN 08/19/21 09/13/21 History OLANZapine [ZyPREXA] 5 mg PO DIRECTED 09/13/21 09/13/21 History Pantoprazole [Protonix] 40 mg PO DAILY 09/13/21 09/13/21 History Sennosides-Docusate Sodium 1 tab PO BID 09/13/21 09/13/21 History [Senokot-S] Allergies Allergy/AdvReac Type Severity Reaction Status Date / Time No Known Allergies Allergy Verified 09/13/21 12:17 Physical Exam Vitals: Vital Signs Pulse Resp BP Pulse Ox 09/13/21 12:10 60 16 124/70 100 Intake and Output 09/12/21 09/13/21 09/13/21 22:59 06:59 14:59 Other: Weight 75.841 kg - Constitutional General appearance: average body habitus, cooperative, no acute distress - EENT Eyes: anicteric sclerae, EOMI ENT: hearing grossly normal, normal oropharynx - Neck Neck: no lymphadenopathy - Respiratory Respiratory: bilateral: CTA - Cardiovascular Rhythm: regular Heart sounds: normal: S1, S2 Abnormal Heart Sounds: no systolic murmur, no diastolic murmur, no rub, no S3 Gallop, no S4 Gallop, no click, no other leg Peripheral Edema: bilateral: None - Gastrointestinal General gastrointestinal: no absent bowel sounds, no decreased bowel sounds, no distended, no hepatomegaly, no hyperactive bowel sounds, normal bowel sounds, no organomegaly, no rigid, no scaphoid, soft, no splenomegaly, no tenderness, no umbilical hernia, no ventral hernia - Integumentary Integumentary: normal, normal turgor - Neurologic Neurologic: CNII-XII intact - Musculoskeletal Musculoskeletal: strength equal bilaterally - Psychiatric Psychiatric: A&O x's 3, appropriate affect, intact judgment & insight Results CBC & Chem 7: 09/13/21 12:41 09/13/21 12:41 Thrombosis Risk Factor Assmnt - DVT/VTE Prophylaxis DVT/VTE Prophylaxis: Pharmacologic Prophylaxis ordered Assessment and Plan (1) DLBCL (diffuse large B cell lymphoma) Narrative/Plan: Admit to Oncology Chemo orders sent to floor and Pharmacy Supportive meds GI/DVT prophylaxis Ambulate QID [place] fluids Daily wt, labs Home meds reconciled CBC and G-CSF scheduled for Sunday the Current Visit: Yes Status: Chronic Priority: Medium Code(s): C83.30 - DIFFUSE LARGE B-CELL LYMPHOMA, UNSPECIFIED SITE SNOMED Code(s): 539907400
[2021-09-13] MEDS: ATORVASTATIN 40 MG TAB PO SCH (20:37)
[2021-09-13] MEDS: OLANZapine 5 MG TAB PO SCH (20:37)
[2021-09-13] MEDS: SENNOSIDES-DOCUSATE SODIUM 1 EACH TAB PO SCH (20:37)
[2021-09-13] MEDS: SALT AND SODA MOUTHWASH 1,000 ML PO SCH ×2 (20:38→22:43)
[2021-09-13] MEDS ORDERED: DOCUSATE 100 MG CAP PO SCH (21:00)
[2021-09-14] MEDS: SODIUM CHLORIDE 0.9% 1,000 ML IV SCH ×3 (05:25→20:20)
[2021-09-14] MEDS: SALT AND SODA MOUTHWASH 1,000 ML PO SCH ×5 (07:27→23:49)
[2021-09-14] MEDS: PANTOPRAZOLE 40 MG TABLET PO SCH (08:11)
[2021-09-14] MEDS: SENNOSIDES-DOCUSATE SODIUM 1 EACH TAB PO SCH ×2 (08:11→20:20)
[2021-09-14] MEDS: ENOXAPARIN 40 MG/0.4 ML SYRINGE SQ SCH (08:11)
[2021-09-14] MEDS: CHOLECALCIFEROL 25 MCG (1000 IU) TABLET PO SCH (08:11)
[2021-09-14 09:04] LABS: Basophils # (A) 0.01 X 10*3/uL (0.00-0.10); Basophils % (A) 0.1 %; Eosinophils # (A) 0 X 10*3/uL (0.04-0.35); Eosinophils % (A) 0 %; HGB 7.2 g/dL (13.0-17.0); Lymphocytes # (A) 0.34 X 10*3/uL (0.90-5.00); Lymphocytes % (A) 3.9 %; MCH 31.4 pg (27.0-32.0); MCHC 31.3 g/dL (32.0-37.0); MCV 100.4 fL (80.0-97.0); Mean Platelet Volume 10.8 fL (9.5-12.2); Monocytes % (A) 8.1 %; Neutrophils # (A) 7.49 X 10*3/uL (1.80-7.70); Neutrophils % (A) 86.7 %; Platelet Count 169 X 10*3/uL (140-440); RBC 2.29 X 10*6/uL (4.40-5.60); RDW 14.8 % (11.5-14.5); WBC 8.64 X 10*3/uL (4.50-10.00)
[2021-09-14 09:20] LABS: African American GFR (CKD) 62.3 (60.0-200.0); Albumin 3.4 g/dL (3.8-4.9); Albumin/Globulin Ratio 2.62 (1.60-3.17); Anion Gap 7.5 mmol/L (10.00-18.00); BUN/Creat Ratio 14.31 Ratio (12.00-20.00); Blood Urea Nitrogen 18.6 mg/dL (9.0-27.0); Calcium 8.5 mg/dL (8.7-10.3); Carbon Dioxide 23.5 mmol/L (20.0-27.5); Globulin 1.3 g/dL (1.6-3.3); Non-African American GFR(CKD) 53.8 (60.0-200.0); Phosphorus 4.1 mg/dL (2.4-5.1); Potassium 4.8 mmol/L (3.5-5.5); Total Bilirubin 0.3 mg/dL (0.30-1.20); Total Protein 4.7 g/dL (6.2-8.2); Uric Acid 4.6 mg/dL (3.7-8.7)
[2021-09-14] MEDS: ONDANSETRON 16 MG in SODIUM CHLORIDE 0.9% 50 ML IVPB SCH (12:49)
[2021-09-14] MEDS: FAMOTIDINE 20 MG/2 ML VIAL IV SCH (12:50)
[2021-09-14] MEDS: DEXAMETHASONE SOD PHOSPHATE 10 MG/ML 1 ML VIAL IVP SCH (12:50)
[2021-09-14] MEDS ORDERED: SODIUM CHLORIDE 0.9% IV ONE ×3 (14:00→15:00)
[2021-09-14] MEDS ORDERED: CARBOPLATIN IV ONE (14:00)
[2021-09-14] MEDS: ETOPOSIDE 200 MG in SODIUM CHLORIDE 0.9% 500 ML 500 ML IV SCH (14:10)
--- NOTE | 2021-09-14 14:43 | P.PN ---
Subjective Progress Note Date: 09/14/21 Principal diagnosis: Timed Chemo Day 2 Cycle 3 of [place] Objective - Vital Signs Vital signs: Vital Signs Temp 97.7 F 09/14/21 12:00 Pulse 74 09/14/21 12:00 Resp 16 09/14/21 12:00 BP 110/53 09/14/21 12:00 Pulse Ox 99 09/14/21 12:00 Intake & Output 09/13/21 09/14/21 09/14/21 18:59 06:59 18:59 Intake Total 1435 1000 Balance 1435 1000 Weight 75.841 kg 75.5 kg Intake: Intake, IV Titration 1435 1000 Amount Etoposide 200 mg In 510 Sodium Chloride 0.9% 500 ml 500 ml @ 510 mls/hr IV Q24H [facility] Rx#:[id number] Ondansetron 16 mg In 50 Sodium Chloride 0.9% 50 ml @ 232 mls/hr IVPB Q24H [facility] Rx#:[id number] Sodium Chloride 0.9% 1, 875 1000 000 ml @ 125 mls/hr IV . Q8H [facility] Rx#:[id number] Other: # Voids 3 # Bowel Movements 1 - Exam - Constitutional General appearance: average body habitus, cooperative, no acute distress - EENT Eyes: anicteric sclerae, EOMI ENT: hearing grossly normal, normal oropharynx - Neck Neck: no lymphadenopathy - Respiratory Respiratory: bilateral: CTA - Cardiovascular Rhythm: regular Heart sounds: normal: S1, S2 Abnormal Heart Sounds: no systolic murmur, no diastolic murmur, no rub, no S3 Gallop, no S4 Gallop, no click, no other leg Peripheral Edema: bilateral: None - Gastrointestinal General gastrointestinal: no absent bowel sounds, no decreased bowel sounds, no distended, no hepatomegaly, no hyperactive bowel sounds, normal bowel sounds, no organomegaly, no rigid, no scaphoid, soft, no splenomegaly, no tenderness, no umbilical hernia, no ventral hernia - Integumentary Integumentary: normal, normal turgor - Neurologic Neurologic: CNII-XII intact - Musculoskeletal Musculoskeletal: strength equal bilaterally - Psychiatric Psychiatric: A&O x's 3, appropriate affect, intact judgment & insigh - Labs CBC & Chem 7: 09/14/21 06:25 09/14/21 06:25 Labs: Abnormal Lab Results - Last 24 Hours (Table) 09/14/21 09/14/21 Range/Units 06:25 06:25 RBC 2.29 L (4.40-5.60) X 10*6/uL Hgb 7.2 L (13.0-17.0) g/dL Hct 23.0 L (39.6-50.0) % MCV 100.4 H (80.0-97.0) fL MCHC 31.3 L (32.0-37.0) g/dL RDW 14.8 H (11.5-14.5) % Immature Gran # 0.10 H (0.00-0.04) X 10*3/uL Lymphocytes # 0.34 L (0.90-5.00) X 10*3/uL Eosinophils # 0 L (0.04-0.35) X 10*3/uL Chloride 110 H (96-109) mmol/L Anion Gap 7.50 L (10.00-18.00) mmol/L Est GFR (CKD-EPI)NonAf 53.8 L (60.0-200.0) Calcium 8.5 L (8.7-10.3) mg/dL AST 12 L (14-35) U/L Total Protein 4.7 L (6.2-8.2) g/dL Albumin 3.4 L (3.8-4.9) g/dL Globulin 1.3 L (1.6-3.3) g/dL Assessment and Plan Plan: Thrombosis Risk Factor Assmnt - DVT/VTE Prophylaxis DVT/VTE Prophylaxis: Pharmacologic Prophylaxis ordered Assessment and Plan (1) DLBCL (diffuse large B cell lymphoma) Narrative/Plan: Continue ay 2 of Cycle 3 RICE, Neulasta on 09/19/21 in office Supportive meds GI/DVT prophylaxis Ambulate QID [place] fluids Daily wt, labs Home meds reconciled CBC and G-CSF scheduled for Sunday the Current Visit: Yes Status: Chronic Priority: Medium Code(s): C83.30 - DIFFUSE LARGE B-CELL LYMPHOMA, UNSPECIFIED SITE SNOMED Code(s): 192199058 Physician Attest: I have completed the full history and physical and agree with above dictation, dictated as a scribe.
[2021-09-14] MEDS ORDERED: IFOSFAMIDE IV ONE (15:00)
[2021-09-14] MEDS ORDERED: [UNRECOGNIZED DRUG - OTHER] IV ONE (15:00)
[2021-09-14] MEDS ORDERED: MESNA IV ONE (15:00)
[2021-09-14] MEDS: ATORVASTATIN 40 MG TAB PO SCH (20:20)
[2021-09-14] MEDS: OLANZapine 5 MG TAB PO SCH (20:20)
[2021-09-15] MEDS: SODIUM CHLORIDE 0.9% 1,000 ML IV SCH ×2 (04:30→14:23)
[2021-09-15] MEDS: SALT AND SODA MOUTHWASH 1,000 ML PO SCH ×4 (04:31→20:36)
[2021-09-15] MEDS: ENOXAPARIN 40 MG/0.4 ML SYRINGE SQ SCH (07:32)
[2021-09-15] MEDS: SENNOSIDES-DOCUSATE SODIUM 1 EACH TAB PO SCH ×2 (07:32→20:35)
[2021-09-15] MEDS: CHOLECALCIFEROL 25 MCG (1000 IU) TABLET PO SCH (07:32)
[2021-09-15] MEDS: PANTOPRAZOLE 40 MG TABLET PO SCH (07:32)
[2021-09-15] MEDS: ONDANSETRON 16 MG in SODIUM CHLORIDE 0.9% 50 ML IVPB SCH (12:23)
[2021-09-15] MEDS: FAMOTIDINE 20 MG/2 ML VIAL IV SCH (12:24)
[2021-09-15] MEDS: DEXAMETHASONE SOD PHOSPHATE 10 MG/ML 1 ML VIAL IVP SCH (12:24)
[2021-09-15 12:55] LABS: Anisocytosis Slight; Basophils % (A) 0 %; Eosinophils % (A) 0 %; HCT 23.6 % (39.0-53.0); Hypochromasia Slight; Lymphocytes # (A) 0.3 k/uL (1.0-4.8); Lymphocytes % (A) 3 %; MCH 32.6 pg (25.0-35.0); MCHC 32.2 g/dL (31.0-37.0); MCV 101.2 fL (80.0-100.0); Macrocytosis Slight; Mean Platelet Volume 8.5; Monocytes # (A) 0.7 k/uL (0-1.0); Monocytes % (A) 9 %; Neutrophils % (A) 86 %; Platelet Count 172 k/uL (150-450); RBC 2.33 m/uL (4.30-5.90); RDW 17.6 % (11.5-15.5); WBC 8.1 k/uL (3.8-10.6)
[2021-09-15 12:58] LABS: HGB 7.6 gm/dL (13.0-17.5)
[2021-09-15 12:59] LABS: ALT 15 U/L (4-49); AST 17 U/L (17-59); African American GFR (CKD) 84 (>60 ml/min/1.73 sqM); Albumin 2.8 g/dL (3.5-5.0); Albumin/Globulin Ratio 1.4; Alkaline Phosphatase 76 U/L (38-126); Anion Gap 2 mmol/L; Blood Urea Nitrogen 16 mg/dL (9-20); Calcium 8.3 mg/dL (8.4-10.2); Carbon Dioxide 22 mmol/L (22-30); Chloride 114 mmol/L (98-107); Glucose 87 mg/dL (74-99); Non-African American GFR(CKD) 72 (>60 ml/min/1.73 sqM); Phosphorus 2.8 mg/dL (2.5-4.5); Potassium 3.9 mmol/L (3.5-5.1); Sodium 138 mmol/L (137-145); Total Bilirubin 0.5 mg/dL (0.2-1.3); Total Protein 4.8 g/dL (6.3-8.2); Uric Acid 3.2 mg/dL (3.5-8.5)
[2021-09-15] MEDS: ETOPOSIDE 200 MG in SODIUM CHLORIDE 0.9% 500 ML 500 ML IV SCH (14:41)
[2021-09-15] MEDS: OLANZapine 5 MG TAB PO SCH (20:35)
[2021-09-15] MEDS: ATORVASTATIN 40 MG TAB PO SCH (20:35)
[2021-09-16] MEDS: SALT AND SODA MOUTHWASH 1,000 ML PO SCH ×4 (01:10→16:38)
[2021-09-16] MEDS: SODIUM CHLORIDE 0.9% 1,000 ML IV SCH ×3 (02:32→12:22)
[2021-09-16 07:30] VITALS: RESP 18
[2021-09-16] MEDS: ENOXAPARIN 40 MG/0.4 ML SYRINGE SQ SCH (07:56)
[2021-09-16] MEDS: SENNOSIDES-DOCUSATE SODIUM 1 EACH TAB PO SCH (07:58)
[2021-09-16] MEDS: CHOLECALCIFEROL 25 MCG (1000 IU) TABLET PO SCH (07:59)
[2021-09-16] MEDS: PANTOPRAZOLE 40 MG TABLET PO SCH (07:59)
[2021-09-16 12:47] VITALS: BP 124/61; PULSE 91; TEMP 97.5
--- NOTE | 2021-09-16 15:14 | P.DS ---
Providers Date of admission: 09/13/21 11:49 Expected date of discharge: 09/16/21 Attending physician: Jin Sexton Primary care physician: Yuri Valentine [facility] Course: Chemotherapy RICE cycle 3. Patient could not tolrate levaquin, will recheck cbc on sunday and determine if prophylaxis is needed Health Concerns: Physician Attest: I have completed the full history and physical and developed the ful discharge plan and assessment on day of discharge, discharged as a scribe. Patient Condition at Discharge: Fair Plan - Discharge Summary New Discharge Prescriptions: New Acyclovir 400 mg PO BID #60 tablet Nystatin 100,000 Unit/ml Susp [Mycostatin Oral Susp] 5 ml PO QID #300 ml Sennosides-Docusate Sodium [Senokot-S] 2 each PO BID tab Continue Atorvastatin [Lipitor] 40 mg PO HS Cholecalciferol [Vitamin D3 (25 Mcg = 1000 Iu)] 50 mcg PO DAILY OLANZapine [ZyPREXA] 5 mg PO DIRECTED Ondansetron [Zofran] 4 mg PO Q4H PRN PRN Reason: Nausea Sennosides-Docusate Sodium [Senokot-S] 1 tab PO BID Pantoprazole [Protonix] 40 mg PO DAILY Discharge Medication List Atorvastatin [Lipitor] 40 mg PO HS 07/28/16 [History] Cholecalciferol [Vitamin D3 (25 Mcg = 1000 Iu)] 50 mcg PO DAILY 07/28/16 [History] Ondansetron [Zofran] 4 mg PO Q4H PRN 08/19/21 [History] OLANZapine [ZyPREXA] 5 mg PO DIRECTED 09/13/21 [History] Pantoprazole [Protonix] 40 mg PO DAILY 09/13/21 [History] Sennosides-Docusate Sodium [Senokot-S] 1 tab PO BID 09/13/21 [History] Acyclovir 400 mg PO BID #60 tablet 09/16/21 [Rx] Nystatin 100,000 Unit/ml Susp [Mycostatin Oral Susp] 5 ml PO QID #300 ml 09/16/21 [Rx] Sennosides-Docusate Sodium [Senokot-S] 2 each PO BID tab 09/16/21 [Rx] Follow up Appointment(s)/Referral(s): Jin Sexton MD [STAFF PHYSICIAN] - 09/19/21 1:15 pm ([facility] and [facility]. Please make more appt when there) Activity/Diet/Wound Care/Special Instructions: Since cannot receive on body injection on same day as discharge you will have INJECTION ON Sunday09/19/21 @10am in [place] office Discharge Disposition: HOME SELF-CARE
[2021-09-16 15:50] LABS: Anisocytosis Slight; Basophils % (A) 0 %; Eosinophils % (A) 0 %; HCT 27.1 % (39.0-53.0); HGB 8.8 gm/dL (13.0-17.5); Hypochromasia Slight; Lymphocytes # (A) 0.3 k/uL (1.0-4.8); Lymphocytes % (A) 3 %; MCH 33.1 pg (25.0-35.0); MCHC 32.3 g/dL (31.0-37.0); MCV 102.5 fL (80.0-100.0); Macrocytosis Moderate; Mean Platelet Volume 8.9; Monocytes # (A) 0.2 k/uL (0-1.0); Monocytes % (A) 3 %; Neutrophils # (A) 7.2 k/uL (1.3-7.7); Neutrophils % (A) 93 %; Platelet Count 212 k/uL (150-450); RBC 2.65 m/uL (4.30-5.90); RDW 17.6 % (11.5-15.5); WBC 7.8 k/uL (3.8-10.6)
[2021-09-16 16:02] LABS: ALT 21 U/L (4-49); AST 30 U/L (17-59); African American GFR (CKD) 75 (>60 ml/min/1.73 sqM); Albumin 3.2 g/dL (3.5-5.0); Albumin/Globulin Ratio 1.6; Alkaline Phosphatase 75 U/L (38-126); Anion Gap 3 mmol/L; Blood Urea Nitrogen 18 mg/dL (9-20); Calcium 8.9 mg/dL (8.4-10.2); Carbon Dioxide 23 mmol/L (22-30); Chloride 110 mmol/L (98-107); Glucose 90 mg/dL (74-99); LDH 375 U/L (313-618); Magnesium 2.2 mg/dL (1.6-2.3); Non-African American GFR(CKD) 65 (>60 ml/min/1.73 sqM); Phosphorus 2.9 mg/dL (2.5-4.5); Sodium 136 mmol/L (137-145); Total Bilirubin 0.7 mg/dL (0.2-1.3); Total Protein 5.2 g/dL (6.3-8.2); Uric Acid 3.1 mg/dL (3.5-8.5)
== END 2021-09-16 17:24 | disposition home or self-care (01) | DRG 842 ==
LOC: 5NMEDONC 09-13 11:49
PROVIDERS: ADMIT Internal Medicine Hematology & Oncology; ATTEND Internal Medicine Hematology & Oncology
DX: C83.33 Diffuse large B-cell lymphoma, intra-abdominal lymph nodes (principal); E78.5 Hyperlipidemia, unspecified; L98.9 Disorder of the skin and subcutaneous tissue, unspecified; Z79.899 Other long term (current) drug therapy; Z80.0 Family history of malignant neoplasm of digestive organs; Z85.828 Personal history of other malignant neoplasm of skin; Z87.19 Personal history of other diseases of the digestive system; Z87.891 Personal history of nicotine dependence; Z92.3 Personal history of irradiation; Z96.649 Presence of unspecified artificial hip joint; M19.90 Unspecified osteoarthritis, unspecified site; K59.00 Constipation, unspecified
CPT/HCPCS: 80053; 83615; 83735; 84100; 84550; 85025

== ENCOUNTER → 2021-09-23 | Outpatient (CLI) | payer MEDICARE ==
--- NOTE | 2021-09-26 06:55 | PE ---
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 Completed chemotherapy . TECHNIQUE: Following the intravenous administration of 7.74 mCi of F-18 FDG, whole body images are p erformed from the skull base to the midthigh. Images are reviewed on the computer in the coronal, ax ial, and sagittal planes. Reconstructed rotating images are created on independent workstation and r eviewed on the computer. A localization and attenuation correction CT is performed in conjunction w ith the PET scan. Blood glucose level equals 84 SCAN: Subsequent Scan FINDINGS: Mean SUV mediastinum: 1.28 Mean SUV liver: 2.45 SKULL BASE AND NECK: No recurrent hypermetabolic lymph nodes in the right neck or supraclavicular re gions bilaterally. No new areas of abnormal hypermetabolic uptake. No significant change from most re cent PET/CT. CHEST, MEDIASTINUM, AND HILAR REGION: Symmetric anterior upper thoracic muscular uptake and mild inte rcostal muscular uptake bilaterally. Findings presumed postinflammatory. No suspicious hypermetabolic axillary or mediastinal adenopathy on current study. No obvious enlarged lymph nodes on current stud y. No new hypermetabolic lymph nodes are present. ABDOMEN AND PELVIS: No recurrent hypermetabolic upper to mid abdominal adenopathy towards the pancrea tic region. Mild nonspecific distal gastric uptake. Iliac chain adenopathy shows no active recurrence or new suspicious enlarging lymph nodes extending into the bilateral groin region. No new suspicious hypermetabolic uptake noted. Normal excretion is present. OSSEOUS STRUCTURES: Mild diffuse osseous uptake now seen presumed product of recent treatment. No new focal areas of suspicious hypermetabolic uptake. OTHER CT: Moderate calcified plaque bilateral carotid bulb level again seen. New left-sided PICC line terminating in SVC. Stable Mild emphysematous change. Moderate Coronary corey ry calcification redemonstrated . Spleen and liver remain normal in size without new suspicious hypermetabolic uptake. Moderate calcifi ed plaque abdominal aorta. Metallic hardware from bilateral hip arthroplasty causes streak artifact limiting evaluation of pelvi c structures. Multilevel spurring in the spine. Stable borderline grade 2 anterolisthesis L4 on L5. Lower lumbar facet arthropathy redemonstrated. IMPRESSION: Continued complete metabolic response without suspicious enlarged or new hypermetabolic a denopathy on the current study.
== END | disposition home or self-care (01) ==
LOC: RADPETMAIN 15:09
PROVIDERS: ATTEND Internal Medicine Hematology & Oncology
DX: C83.33 Diffuse large B-cell lymphoma, intra-abdominal lymph nodes (principal)
CPT/HCPCS: 78815; A9552

== ENCOUNTER → 2022-05-12 | Outpatient (CLI) | payer MEDICARE ==
--- NOTE | 2022-05-18 10:30 | HM ---
HOLTER MONITOR REPORT The patient was monitored for 24 hours. The baseline rhythm appeared to be sinus mechanism with a minimum heart rate of 48, max is 112, and average of 71 beats per minute. Ventricular ectopic events presented in less than 1% of the total beats count. Supraventricular ectopic events presented in less than 1% of the total beats count as well. The patient did have multiple episodes of sinus rhythm with Mobitz 1 and Mobitz 2 AV block. No significant bradycardia noted. No atrial fibrillation noted. CONCLUSION: 1. Sinus rhythm as a baseline mechanism. 2. Rare ventricular ectopic events. 3. Rare supraventricular ectopic events. 4. The patient did have multiple episodes of Mobitz 1 and Mobitz 2 AV block. 5. No atrial fibrillation noted. 6. No significant sinus pause exceeds 3 seconds is seen. 7. No diary was attached to the study. MMODL / IJN: [id number] /
== END | disposition home or self-care (01) ==
LOC: RADECHMAIN 07:46
PROVIDERS: ATTEND Family Medicine
DX: I44.1 Atrioventricular block, second degree (principal)
CPT/HCPCS: 93225; 93226

== ENCOUNTER → 2022-05-30 | Outpatient (CLI) | payer MEDICARE ==
--- NOTE | 2022-05-30 18:41 | MR ---
EXAMINATION TYPE: MR brain wo/w con DATE OF EXAM: 05/30/2022 COMPARISON: NONE HISTORY: 77-year-old male [id number], Lymphoma TECHNIQUE: Multiplanar, multisequence images of the brain and brainstem were acquired before and aft er administration of 8 mL IV Gadavist. Diffusion weighted imaging is performed. FINDINGS: No evidence for acute infarction, hemorrhage, mass, mass effect, midline shift, herniation, effacemen t of basal cisterns, or extra-axial fluid collection. The ventricles and sulci are age-appropriate. Major intracranial flow voids are intact. T2/FLAIR weighted sequences show moderate scattered bright signal foci throughout both cerebral hemis pheres. Patchy and confluent change in the periatrial regions on both sides and foci scattered throug hout the deep white matter and subcortical regions. 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 Midline structures demonstrate normal morphology. The craniocervical junction is normal. Post contrast images demonstrate no evidence of pathologic enhancement. Dural venous sinuses are pat ent. Moderate mucosal thickening ethmoid air cells and right maxillary sinus. Slight rightward nasal septa l deviation. Globes are intact. IMPRESSION: Moderate burden of scattered T2 bright white matter change likely relating to chronic small vessel is chemic disease. Small area of gliosis left occipital lobe could represent sequela of prior vascular o r traumatic insult. No enhancing lesions to suggest intracranial lymphoma. No acute intracranial abno rmality seen.
== END | disposition home or self-care (01) ==
LOC: RADMRIMAIN 13:11
PROVIDERS: ATTEND Internal Medicine Hematology & Oncology
DX: C83.33 Diffuse large B-cell lymphoma, intra-abdominal lymph nodes (principal)
CPT/HCPCS: 70553; A9585

== ENCOUNTER → 2023-04-04 | Outpatient (CLI) | payer MEDICARE ==
--- NOTE | 2023-04-04 23:54 | XR ---
EXAMINATION TYPE: XR chest 2V DATE OF EXAM: 04/04/2023 COMPARISON: 08/07/2019 INDICATION: Cough history of trauma TECHNIQUE: Frontal and lateral views of the chest are obtained. FINDINGS: The heart size is normal. The pulmonary vasculature is normal. There is a left perihilar infiltrate. Correlate for pneumonia. Follow-up to clearing is recommended.. Spondylosis is within the lower thoracic spine. IMPRESSION: 1. Left perihilar infiltrate. Correlate for pneumonia. Follow-up to clearing is recommended.
== END | disposition home or self-care (01) ==
LOC: RADXRMAIN 11:49
PROVIDERS: ATTEND Internal Medicine Hematology & Oncology
DX: C83.33 Diffuse large B-cell lymphoma, intra-abdominal lymph nodes (principal); E78.5 Hyperlipidemia, unspecified; R91.8 Other nonspecific abnormal finding of lung field; R05.9 Cough, unspecified
CPT/HCPCS: 71046